=== PATIENT | female | born 1950 | race Caucasian/White ===

== ENCOUNTER 2018-10-07 10:35 | Emergency (ER) | payer MEDICARE, OTHER, SELFPAY ==
[2018-10-07 10:46] VITALS: BP 142/75; PULSE 66; RESP 20; TEMP 35.9; O2SAT 98; BMI 22.6
--- NOTE | 2018-10-07 10:55 | ED.HA ---
HPI - Headache General Chief Complaint: Headache Stated Complaint: HEADACHE, EVERYTHING HURTING,POSS SHINGLES Time Seen by Provider: 10/07/18 10:47 Source: patient Mode of arrival: ambulatory Limitations: no limitations History of Present Illness HPI Narrative: Patient is a 68-year-old female who presents with all left-sided rash and headache. She was diagnosed with shingles yesterday. She has been having a mild headache off and on for about a week. Went to PCP yesterday diagnosed with shingles started on valacyclovir. The rash actually started more so today and her pain is out of control. They did not give her anything for pain. She denies any neck pain or fever. She has never had shingles in the past. No vision changes ear pain or lesions on nose. Related Data Home Medications Medication Instructions Recorded Confirmed ibuprofen [Advil] 1 dose PO PRN PRN 10/07/18 10/07/18 multivitamin 1 tab PO DAILY 10/07/18 10/07/18 Previous Rx's Medication Instructions Recorded gabapentin 300 mg PO DAILY 1 Days #90 cap 10/07/18 hydrocodone-acetaminophen [[place]] 2 tab PO Q6-8H PRN #14 tab 10/07/18 prednisone 50 mg PO DAILY #5 tab 10/07/18 Allergies Allergy/AdvReac Type Severity Reaction Status Date / Time codeine [CODEINE] Allergy Unknown Unverified 03/04/18 11:57 Review of Systems Review of Systems All systems reviewed & are unremarkable except as noted in HPI and below Constitutional Denies chills, Denies fever(s), Denies lethargy and Denies weakness Eyes Denies change in vision, Denies eye discharge, Denies irritation and Denies loss of vision ENT Ears, Nose, Mouth, and Throat: Denies change in voice, Denies neck pain and Denies sore throat Cardiovascular Denies chest pain, Denies irregular heart rhythm, Denies lightheadedness, Denies palpitations, Denies dyspnea, Denies dyspnea on exertion and Denies orthopnea Respiratory Denies cough, Denies dyspnea, Denies dyspnea on exertion and Denies wheezing Gastrointestinal Gastrointestinal: Denies abdominal pain, Denies change in bowel habits, Denies diarrhea, Denies nausea and Denies vomiting Musculoskeletal Denies neck pain Integumentary/Breasts Reports rash Neurologic Denies loss of vision and Denies weakness Endocrine Denies palpitations Allergic/Immunologic Denies wheezing PFSH Medical History GERD (gastroesophageal reflux disease) (Acute) Social History Smoking Status: Never smoker Exam Initial Vital Signs Initial Vital Signs: Vital Signs Temperature 96.7 F L 10/07/18 10:46 Pulse Rate 66 10/07/18 10:46 Respiratory Rate 20 10/07/18 10:46 Blood Pressure 142/75 H 10/07/18 10:46 Pulse Oximetry 98 10/07/18 10:46 Const General: cooperative, healthy appearing and in distress (In pain) [facility] Head: normal to inspection and normocephalic Ears: hearing grossly normal bilaterally, external ears normal and TM's normal bilaterally Nose: external nose normal, septum normal and No nasal polyp Face and sinus: erythema on the left (Left-sided rash erythematous spots no vesicles does not cross midline no spot on nose ) Mouth: oral mucosae normal Eyes Other: Left eye was treated with proparacaine, stained with fluorescein. No dye uptake. No foreign body. Neck Neck: normal visual inspection, full ROM, no meningeal signs, trachea midline and supple Chest Chest: normal inspection of the chest and normal palpation of entire chest wall Resp Effort & Inspection: able to speak in complete sentences Auscultation: clear to auscultation bilaterally, no rales, no rhonchi and no wheezes Cardio Rate: regular rate Rhythm: regular rhythm Heart Sounds: S1 normal and S2 normal Skin Rashes: rashes noted (Erythematous lesions no vesicles left side) Course Vital Signs - 8 hr 10/07/18 10:46 Temperature 96.7 F L Pulse Rate 66 Respiratory Rate 20 Blood Pressure 142/75 H Pulse Oximetry 98 Discharge Plan Departure Patient Disposition: Home Clinical Impression: Shingles Discharge Date/Time: 10/07/18 11:11 Interventions: ED Discharge Assessment Last Done: 10/07/18 11:11 Instructions: Shingles Activity Restrictions/Additional Instructions: *You have been diagnosed with shingles *What to do: Expect to have pain and worsening rash this can last 3-6 weeks at this time it does not appear that I ear or nose is involved. However this may change. *Continue to take medications as directed Gabapentin-take as instructed, this is gradually increased and then gradually decreased do not stop it abruptly Prednisone 50 mg once a day for 5 days [place] all 1 tablet every 4 hr or 2 tablets every 6 hr as *Follow up with your primary care provider in 2-3 days *Return to ER if you should have increased eye pain, ear pain, fever, neck pain or any new, worsening or concerning symptoms CONTROLLED SUBSTANCE DISCHARGE (Narcotoic/benzodiazepine/Flexeril/Phenergan) 1. You have been prescribed narcotic medications, it does have acetaminophen/Tylenol/paracetamol in it so do not take extra Tylenol or Tylenol containing products 2. Please understand that we cannot provide further refills of narcotics, benzodiazepines or controlled substances through the ED and her pain management will need to be through your provider. 3. While on these medications you cannot drive or operate heavy machinery. 4. You cannot sign legal documents or perform any duties such as this. 5. As long as you're taking opiate pain medications he should also be taking a stool softener such as Colace, Dulcolax, MiraLAX or prune juice, to help avoid constipation. Prescriptions: New hydrocodone-acetaminophen [[place]] 5-325 mg tablet 2 tab PO Q6-8H PRN (Reason: pain) Qty: 14 RF: 0 prednisone 50 mg tablet 50 mg PO DAILY Qty: 5 RF: 0 gabapentin 300 mg capsule 300 mg PO DAILY 1 Days Qty: 90 RF: 0 No Action multivitamin Tablet 1 tab PO DAILY RF: 0 ibuprofen [Advil] 200 mg Tablet 1 dose PO PRN PRN (Reason: pain) RF: 0 Referrals: Phuong Ambrosio MD [Primary Care Provider] -
== END 2018-10-07 11:11 | disposition home or self-care (01) ==
PROVIDERS: Emergency Provider Emergency Medicine; PCP Family Medicine
DX: B02.9 Zoster without complications (principal)
CPT/HCPCS: 99282

== ENCOUNTER 2018-10-08 12:49 | Emergency (ER) | payer MEDICARE, OTHER, SELFPAY ==
[2018-10-08 12:54] VITALS: BP 113/70; PULSE 64; RESP 19; TEMP 36.8; O2SAT 99
[2018-10-08] MEDS: ONDANSETRON 4 MG ODT PO (13:09)
--- NOTE | 2018-10-08 16:59 | ED.NAVMDI ---
HPI - Nausea/Vomiting/Diarrhea <MAINOR Wilkins - Last Filed: 10/08/18 21:45> General Chief complaint: Nausea/Vomiting/Diarrhea Stated complaint: dehydrated, vomitting Time Seen by Provider: 10/08/18 16:58 Source: patient Mode of arrival: ambulatory Limitations: no limitations History of Present Illness HPI Narrative: 68-year-old female with history of GERD and is a nonsmoker here for complaint of nausea vomiting and discomfort due to shingles to her face. She has recently seen by primary care provider and was put on antivirals she was also prescribed pain medications. She reports after taking the medication she started having nausea vomiting. She is having a hard time taking the pain medication in the antiviral due to the vomiting. Last emesis was at noon today. She was sent here for IV fluids. No other concerns or complaints. Related Data Home Medications Medication Instructions Recorded Confirmed ibuprofen [Advil] 1 dose PO PRN PRN 10/07/18 10/08/18 multivitamin 1 tab PO DAILY 10/07/18 10/08/18 valacyclovir 1,000 mg PO TID 10/08/18 10/08/18 Previous Rx's Medication Instructions Recorded prednisone 50 mg PO DAILY #5 tab 10/07/18 Allergies Allergy/AdvReac Type Severity Reaction Status Date / Time codeine [CODEINE] Allergy Unknown Unverified 03/04/18 11:57 Review of Systems <MAINOR Wilkins - Last Filed: 10/08/18 21:45> Constitutional Denies chills, Denies fever(s), Denies lethargy and Denies weakness Eyes Denies change in vision, Denies eye discharge, Denies irritation and Denies loss of vision ENT Comments: Pain to the left face secondary to shingles Cardiovascular Denies chest pain, Denies irregular heart rhythm, Denies lightheadedness, Denies palpitations, Denies dyspnea, Denies dyspnea on exertion and Denies orthopnea Respiratory Denies cough, Denies dyspnea, Denies dyspnea on exertion and Denies wheezing Gastrointestinal Comments: Nausea vomiting Genitourinary Denies hematuria, Denies flank pain, Denies urinary incontinence and Denies urinary urgency Musculoskeletal Denies back pain, Denies muscle weakness, Denies numbness and Denies tingling Integumentary/Breasts Denies pruritus, Denies erythema, Denies rash and Denies wounds Neurologic Denies confusion, Denies loss of vision, Denies numbness, Denies tingling and Denies weakness Psychiatric Denies anxiety, Denies confusion, Denies depression, Denies homicidal ideation and Denies suicidal ideation Endocrine Denies palpitations Hematologic/Lymphatic Denies easy bruising Allergic/Immunologic Denies wheezing Exam <MAINOR Wilkins - Last Filed: 10/08/18 21:45> Initial Vital Signs Initial Vital Signs: Vital Signs Temperature 98.2 F 10/08/18 12:54 Pulse Rate 64 10/08/18 12:54 Respiratory Rate 19 10/08/18 12:54 Blood Pressure 113/70 10/08/18 12:54 Pulse Oximetry 99 10/08/18 12:54 Const General: cooperative and well developed Nutritional Appearance: well nourished Orientation: alert, awake, oriented x3 and not confused HENMT Face and sinus: other (Erythema and slight swelling to the left face) Mouth: oral mucosae normal and moist mucous membranes Eyes Conjunctivae: conjunctivae normal Sclera: sclerae normal Pupils: PERRL EOM: EOM intact bilaterally Resp Effort & Inspection: normal respiratory effort, able to speak in complete sentences, no respiratory distress and no use of accessory muscles Auscultation: clear to auscultation bilaterally, no rales, no rhonchi and no wheezes Cardio Rate: regular rate Rhythm: regular rhythm Heart Sounds: no click, no gallops, no murmurs and no rubs Pulses: normal peripheral pulses General: No CVA tenderness Skin General: no rashes or lesions noted, No jaundice and No petechiae Neuro General: alert, oriented x3, gait normal and no focal motor deficits Speech: speech normal <Kiel Lynch DO - Last Filed: 10/08/18 22:46> Initial Vital Signs Initial Vital Signs: Vital Signs Temperature 98.2 F 10/08/18 12:54 Pulse Rate 64 10/08/18 12:54 Respiratory Rate 19 10/08/18 12:54 Blood Pressure 113/70 10/08/18 12:54 Pulse Oximetry 99 10/08/18 12:54 Course <MAINOR Wilkins - Last Filed: 10/08/18 21:45> Orders Ordered: ED Orders 10/08/18 17:38 Complete Blood Count AUTO DIFF Stat Comprehensive Metabolic Panel Stat Discontinued Medications Hydromorphone HCl (Dilaudid) 1 mg IV NOW ONE Stop: 10/08/18 17:27 Last Admin: 10/08/18 17:53 Dose: 1 mg Sodium Chloride (Normal Saline 0.9%) 1,000 mls @ 1,000 mls/hr IV BOLUS ONE Stop: 10/08/18 18:25 Last Infusion: 10/08/18 18:52 Dose: 0 mls/hr Admin: 10/08/18 17:54 Dose: 1,000 mls/hr Ondansetron HCl (Zofran Odt) 4 mg PO NOW ONE Stop: 10/08/18 13:09 Last Admin: 10/08/18 13:09 Dose: 4 mg Ondansetron HCl (Zofran) 4 mg IV NOW ONE Stop: 10/08/18 17:27 Last Admin: 10/08/18 17:53 Dose: 4 mg Vital Signs - 8 hr 10/08/18 17:05 10/08/18 20:16 Temperature 98.9 F 101.7 F H Pulse Rate 75 63 Respiratory Rate 18 16 Blood Pressure 140/70 Blood Pressure [Right Arm] 147/79 H Pulse Oximetry 97 <Kiel Lynch, - Last Filed: 10/08/18 22:46> Orders Ordered: ED Orders 10/08/18 17:38 Complete Blood Count AUTO DIFF Stat Comprehensive Metabolic Panel Stat Discontinued Medications Hydromorphone HCl (Dilaudid) 1 mg IV NOW ONE Stop: 10/08/18 17:27 Last Admin: 10/08/18 17:53 Dose: 1 mg Sodium Chloride (Normal Saline 0.9%) 1,000 mls @ 1,000 mls/hr IV BOLUS ONE Stop: 10/08/18 18:25 Last Infusion: 10/08/18 18:52 Dose: 0 mls/hr Admin: 10/08/18 17:54 Dose: 1,000 mls/hr Ondansetron HCl (Zofran Odt) 4 mg PO NOW ONE Stop: 10/08/18 13:09 Last Admin: 10/08/18 13:09 Dose: 4 mg Ondansetron HCl (Zofran) 4 mg IV NOW ONE Stop: 10/08/18 17:27 Last Admin: 10/08/18 17:53 Dose: 4 mg Vital Signs - 8 hr 10/08/18 17:05 10/08/18 20:16 Temperature 98.9 F 101.7 F H Pulse Rate 75 63 Respiratory Rate 18 16 Blood Pressure 140/70 Blood Pressure [Right Arm] 147/79 H Pulse Oximetry 97 MDM - Nausea/Vomiting/Diarrhea <MAINOR Wilkins - Last Filed: 10/08/18 21:45> Lab Data Result diagrams: 10/08/18 17:38 10/08/18 17:38 Lab Results 10/08/18 10/08/18 Range/Units 17:38 17:38 WBC 8.8 (4.5-11.0) X10^3/uL RBC 4.34 (4.0-5.2) X10^6/uL Hgb 13.3 (12.0-16.0) g/dL Hct 39.0 (36-46) % MCV 89.7 (80-100) fL MCH 30.7 (26-34) PG MCHC 34.2 (30-36) % RDW 13.3 (11.6-14.8) % Plt Count 226 (150-400) X10^3/uL Neut % (Auto) 87.6 H (50-75) % Lymph % (Auto) 7.5 L (25-40) % [place] % (Auto) 4.5 (3-14) % Eos % (Auto) 0.3 L (2-4) % Baso % (Auto) 0.1 (0-2) % Neut # (Auto) 7709 H (8147-1303) /uL Sodium 141 (137-145) mmol/L Potassium 3.8 (3.4-5.1) mmol/L Chloride 102 (98-107) mmol/L Carbon Dioxide 27 (22-32) mmol/L BUN 20 H (7-17) mg/dL Creatinine 0.70 (0.52-1.04) mg/dL Estimated GFR > 60.0 (>60) mL/min BUN/Creatinine Ratio 28.6 H (6-22) Glucose 116 H (80-110) mg/dL Calcium 8.9 (8.4-10.2) mg/dL Total Bilirubin 0.4 (0.2-1.3) mg/dL AST 26 (14-36) IU/L ALT 28 (9-52) IU/L Alkaline Phosphatase 72 (38-126) U/L Total Protein 7.4 (6.3-8.2) g/dL Albumin 4.6 (3.5-5.0) g/dL Globulin 2.8 (1.7-4.1) g/dL Albumin/Globulin Ratio 1.6 (1.0-2.8) Urine Dip Bedside Urine Glucose Negative Bedside Urine Bilirubin - Negative Bedside Urine Ketone +/- 5 Urine Specific [place] 1.025 Bedside Urine Occult Blood - Negative Bedside Urine pH 6.0 Bedside Urine Protein - Negative Bedside Urine Urobilinogen - Negative Bedside Urine Nitrite - Negative Bedside Urine Leukocytes - Negative Esterase MDM Narrative Medical decision making narrative: The patient was given fluids Zofran and Dilaudid in the emergency room. She had no vomiting while she was in the emergency room. Laboratory results were unremarkable. She felt better after fluids. Discussed case with Dr. Trujillo was on for Dr. ambrosio whose office will follow up with patient tomorrow. We both agree that patient is stable to go home. For any worsening symptoms return to the emergency room. Uses Zofran ODT as needed for nausea. <Kiel Lynch, DO - Last Filed: 10/08/18 22:46> Lab Data Lab Results 10/08/18 10/08/18 Range/Units 17:38 17:38 WBC 8.8 (4.5-11.0) X10^3/uL RBC 4.34 (4.0-5.2) X10^6/uL Hgb 13.3 (12.0-16.0) g/dL Hct 39.0 (36-46) % MCV 89.7 (80-100) fL MCH 30.7 (26-34) PG MCHC 34.2 (30-36) % RDW 13.3 (11.6-14.8) % Plt Count 226 (150-400) X10^3/uL Neut % (Auto) 87.6 H (50-75) % Lymph % (Auto) 7.5 L (25-40) % [place] % (Auto) 4.5 (3-14) % Eos % (Auto) 0.3 L (2-4) % Baso % (Auto) 0.1 (0-2) % Neut # (Auto) 7709 H (7813-1685) /uL Sodium 141 (137-145) mmol/L Potassium 3.8 (3.4-5.1) mmol/L Chloride 102 (98-107) mmol/L Carbon Dioxide 27 (22-32) mmol/L BUN 20 H (7-17) mg/dL Creatinine 0.70 (0.52-1.04) mg/dL Estimated GFR > 60.0 (>60) mL/min BUN/Creatinine Ratio 28.6 H (6-22) Glucose 116 H (80-110) mg/dL Calcium 8.9 (8.4-10.2) mg/dL Total Bilirubin 0.4 (0.2-1.3) mg/dL AST 26 (14-36) IU/L ALT 28 (9-52) IU/L Alkaline Phosphatase 72 (38-126) U/L Total Protein 7.4 (6.3-8.2) g/dL Albumin 4.6 (3.5-5.0) g/dL Globulin 2.8 (1.7-4.1) g/dL Albumin/Globulin Ratio 1.6 (1.0-2.8) Urine Dip Bedside Urine Glucose Negative Bedside Urine Bilirubin - Negative Bedside Urine Ketone +/- 5 Urine Specific [place] 1.025 Bedside Urine Occult Blood - Negative Bedside Urine pH 6.0 Bedside Urine Protein - Negative Bedside Urine Urobilinogen - Negative Bedside Urine Nitrite - Negative Bedside Urine Leukocytes - Negative Esterase Discharge Plan Departure Patient Disposition: Home Clinical Impression: Shingles, Nausea & vomiting Discharge Date/Time: 10/08/18 20:18 Interventions: ED Discharge Assessment Last Done: 10/08/18 20:16 Instructions: DI for Shingles Activity Restrictions/Additional Instructions: Laboratory results today were unremarkable. Fluids were given in the emergency room. Use Zofran and pain medication antivirals as prescribed. Follow up with her primary care provider office tomorrow for re-evaluation for worsening symptoms return to the emergency room. Prescriptions: No Action prednisone 50 mg tablet 50 mg PO DAILY Qty: 5 RF: 0 multivitamin Tablet 1 tab PO DAILY RF: 0 ibuprofen [Advil] 200 mg Tablet 200 mg PO PRN PRN (Reason: pain) RF: 0 valacyclovir 1 gram Tablet 1,000 mg PO TID RF: 0 Referrals: Phuong Ambrosio MD [Primary Care Provider] - <Kiel Lynch DO - Last Filed: 10/08/18 22:46> Cosign ED Attending Jarredature Attestation: I was available for consultation during this patient's emergency department encounter
[2018-10-08 17:05] VITALS: BP 147/79; PULSE 75; RESP 18; TEMP 37.2
[2018-10-08] MEDS: ONDANSETRON 4 MG/2 ML INJ IV (17:53)
[2018-10-08] MEDS: HYDROMORPHONE 1 MG INJ IV (17:53)
[2018-10-08] MEDS: SODIUM CHLORIDE 0.9% 1,000 ML 1000 ML IV (17:54)
[2018-10-08 18:08] LABS: Red Blood Cell Count 4.34 X10^6/uL (4.0-5.2); White Blood Cell Count 8.8 X10^3/uL (4.5-11.0)
[2018-10-08 18:09] LABS: Add Manual Diff / Slide Review NO; Basophils Percent Auto 0.1 % (0-2); Eosinophils Percent Auto 0.3 % (2-4); Hemoglobin 13.3 g/dL (12.0-16.0); Lymphocytes Percent Auto 7.5 % (25-40); Mean Corpuscular HGB Conc 34.2 % (30-36); Mean Corpuscular Hemoglobin 30.7 PG (26-34); Mean Corpuscular Volume 89.7 fL (80-100); Monocytes Percent Auto 4.5 % (3-14); Neutrophils Percent Auto 87.6 % (50-75); Platelet Count 226 X10^3/uL (150-400); Red Cell Distribution Width 13.3 % (11.6-14.8)
[2018-10-08 18:10] LABS: Neutrophils Absolute Auto 7709 /uL (3000-5900)
[2018-10-08 18:20] LABS: Alanine Aminotransferase 28 IU/L (9-52); Albumin 4.6 g/dL (3.5-5.0); Albumin Globulin Ratio 1.6 (1.0-2.8); Alkaline Phosphatase 72 U/L (38-126); Aspartate Aminotransferase 26 IU/L (14-36); BUN Creatinine Ratio 28.6 (6-22); Bilirubin Total 0.4 mg/dL (0.2-1.3); Blood Urea Nitrogen 20 mg/dL (7-17); Calcium 8.9 mg/dL (8.4-10.2); Carbon Dioxide 27 mmol/L (22-32); Estimated Glomerular Filt Rate > 60.0 mL/min (>60); Globulin 2.8 g/dL (1.7-4.1); Glucose 116 mg/dL (80-110); HEMOLYSIS < 15 (0-50); Total Protein 7.4 g/dL (6.3-8.2)
[2018-10-08 18:26] LABS: Chloride 102 mmol/L (98-107); Potassium 3.8 mmol/L (3.4-5.1); Sodium 141 mmol/L (137-145)
[2018-10-08 20:16] VITALS: BP 140/70; PULSE 63; RESP 16; TEMP 38.7; O2SAT 97
== END 2018-10-08 20:18 | disposition home or self-care (01) ==
PROVIDERS: Emergency Provider Nurse Practitioner Family; PCP Family Medicine
DX: B02.9 Zoster without complications (principal)
CPT/HCPCS: 36591; 80053; 81003; 85025; J1170; J2405

== ENCOUNTER 2018-10-08 21:47 | Inpatient (IN) | payer MEDICARE, OTHER, SELFPAY ==
[2018-10-08 22:00] VITALS: BP 121/60; PULSE 69; RESP 18; TEMP 36.7; O2SAT 98
[2018-10-08 22:39] VITALS: BMI 26.5
[2018-10-08] MEDS: ONDANSETRON 4 MG/2 ML INJ IV (22:43)
[2018-10-08] MEDS: SODIUM CHLORIDE 0.9% 1,000 ML 150 ML IV (22:43)
[2018-10-09] VITALS (8 sets, daily range): BP systolic 107–147; BP diastolic 52–65; PULSE 61–69; RESP 16–20; TEMP 36.6–38; O2SAT 90–98
--- NOTE | 2018-10-09 00:58 | PC.NURSE ---
admit pt admitted to AC direct admit after being seen in the ER today for unrelenting nausea, vomiting, and shingles pain. erythema to left forehead and periorbital region. no open areas/sores noted. 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 NS at 150cc/hr. pt states hasn't been tolerating POs for a few days. alert and oriented with steady gait noted upon arrival. pt's spouse rooming in. Pt instructed of NPO status with oral swabs and chapstick provided. Pt instructed to notify RN of any increase in symptoms and prior to activity for assist with equipment.
[2018-10-09] MEDS: ONDANSETRON 4 MG/2 ML INJ IV ×2 (03:18→14:08)
--- NOTE | 2018-10-09 03:36 | PC.NURSE ---
Addendum entered by Yumiko Tapia R.N. 10/09/18 06:58: Add- Call into Dr Trujillo for uncontrolled nausea, Pt with allergy to codeine, nausea and emesis reported. However, Pt rates nausea same as prior to admission. Shows some frustration with continued symptom management issues. at bedside, Pt given Ativan and increased available Zofran dosing. Pt significantly more relaxed at next check, dosing bt Original Note: [id number] Pt c/o continued nausea at start of shift, zofran given. Pt with c/o IV pump too loud, It's almost like its talking to me Pt corrects herself, I know thats not real, but it sounds so strange Education about s/e from narcotics. 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 BA set, call light in reach. Instructed to allow staff assist for safety. Verbalizes understanding.
[2018-10-09] MEDS: SODIUM CHLORIDE 0.9% 1,000 ML 150 ML IV (04:14)
[2018-10-09] MEDS: LORazepam 2 MG/ML SYRINGE 0.5 MG IV (04:14)
[2018-10-09] MEDS: HYDROMORPHONE PCA 6 MG/30 ML PCA.VIAL IV ×3 (07:30→21:53)
--- NOTE | 2018-10-09 09:07 | P.HP_ITS ---
History of Present Illness Chief complaint: N/V, DEHYDRATION, PAIN ISSUES FROM SHINGLES Patient History Medical History GERD (gastroesophageal reflux disease) (Acute) Surgical History History of endometrial ablation (Acute) Family & Social History Family History: Reviewed 10/09/18 by Kiel Trujillo MD Social History: household members spouse Prior Living Arrangements House Safety & Behavioral: Feels Safe in Current Yes Environment Been Physically Hurt or No Threatened By a Person Suicidal Ideation Description None Tobacco & Substance use: Smoking Status Never smoker alcohol intake current alcohol intake frequency a few times a week Substance Use Type does not use Meds Home Medications Medication Instructions Recorded Confirmed Type ibuprofen [Advil] 200 mg PO PRN PRN 10/07/18 10/08/18 History multivitamin 1 tab PO DAILY 10/07/18 10/08/18 History prednisone 50 mg PO DAILY #5 tab 10/07/18 10/08/18 Rx famciclovir 500 mg PO Q8H 10/08/18 10/08/18 History valacyclovir 1,000 mg PO TID 10/08/18 10/08/18 History Allergies Allergy/AdvReac Type Severity Reaction Status Date / Time codeine [CODEINE] Allergy Unknown Nausea Verified 10/09/18 03:42 Review of Systems Review of Systems Patient presents with several day history of severe intractable nausea vomiting and dehydration. This developed about a day after she had an outbreak of clear shingles left side of her head with extensive erythema and redness and swelling extending around the eye. No involvement of the nose. No other abnormalities in terms of abdominal pain shortness of breath cough fever urinary symptoms. The patient was started on pain medications and valacyclovir and we became so nauseous that she was unable to sustain the fluids at all. Two trips to the office in 2 to the ER with IV hydration failed the get the patient had this and was admitted for intractable pain and inability to maintain hydration. Exam Vital Signs (past 8 hours): - 10/09/18 03:16 Temperature 100.4 F H Pulse Rate 66 Respiratory Rate 16 Blood Pressure 136/62 Pulse Oximetry 95 Oxygen Flow Rate 0 Narrative Exam Narrative: Patient sitting in obvious pain swollen left head. PERRLA EOMs are intact Speech clear Neck without any adenopathy rash and and is supple no thyromegaly Lungs are clear to auscultation percussion Cardiovascular exam shows regular rate and rhythm without murmur no edema Abdomen is intact and nontender no hepatosplenomegaly or mass bowel sounds are present Skin shows no abnormalities except in the left upper side of her head with significant inflammatory erythema and tenderness Neuro intact symmetrical speech clear sensory motor intact Assessment & Plan Plan: Assessment/Plan Narrative: Assessment 1. Intractable pain. Patient with severe shingles outbreak refractory to outpatient meds with multiple attempts meds to try to get control without success. Patient also has long history of nausea with the pain meds. Next. 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 Dehydration patient is significantly down with the ketones in urine and very concentrated urine and elevated BUN. Will admit and establish IV fluids for maintaining hydration this will probably also help with her nausea Assessment 3. Severe nausea will use meds as ordered Assessment for his history of reflux. Will use meds as necessary Assessment 5. No DVT prophylaxis and initiated Quality VTE Deep Vein Thrombosis/Pulmonary Embolism Present on Admission: No
[2018-10-09] MEDS: GABAPENTIN 300 MG CAPSULE PO ×2 (10:25→14:03)
[2018-10-09] MEDS: ENOXAPARIN 40 MG/0.4 ML SYRINGE SUBCUT (10:25)
[2018-10-09] MEDS: predniSONE 20 MG TABLET 50 MG PO (10:26)
[2018-10-09] MEDS: FAMCICLOVIR 500 MG 500 EACH PO ×2 (10:27→16:59)
--- NOTE | 2018-10-09 13:05 | CM.DANOTE ---
Patient is a 68 year old female who was admitted on 10/08/18 for Dehydration, Pain, Shingles. Pt has MCR and PRE DIM for insurance and her PCP is Dr. Ambrosio. EMR was reviewed. Per MD, pt still having intractable pain, dehydration, and nausea and not stable for d/c yet. SW met bedside with pt and spouse and explained role and they confirmed that they lives in [place] and pt is typically Independent at baseline and drives and has not needed to be hospitalized for at least 12 years since she had major back pain. Pt denies any hx of HH or SNF and they believe that they have completed DPOA pwk but state it has been many years and confirmed that they will plan to review their DPOA pwk at home and update if needed. Pt believes that her is her DPOA. Pt states she is still very nauseous and painful and preference is to d/c home when stable but not sure if she will have any SW needs. Plan: SW to follow closely for d/c planning needs to determine if pt will begin to stabilize enough for d/c home with spouse. Needs unclear at this time. 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 No History Provided By Patient Significant Other Medical Record Has Patient been admitted in last 30 No days? Prior Living Arrangements House Household Members spouse Type of transporation used prior to Drives own vehicle admit Independent with ADL's Yes Is patient alert and oriented? Yes Caregiver for Another No Comment Likely home pending pt's progress and medical needs Barriers to Discharge No Discharge Plan Home Transportation Arrangement Spouse is bedside and can provide transport at time of d /c. Referrals Initiated None needed Whiteboard Updated in Patient Room with Yes name and ext. # of Rivet Tapping Machine Operator Review Status In Process Please Provide Date Initial DC 10/09/18 Assessment Was Performed Next Review Type Continued Stay Review
[2018-10-09] MEDS: SODIUM CHLORIDE 0.9% 1,000 ML 100 ML IV (23:30)
[2018-10-10] VITALS: BP 131/67; PULSE 62; RESP 16; TEMP 36.8; O2SAT 96
[2018-10-10] MEDS: FAMCICLOVIR 500 MG 500 EACH PO ×2 (00:50→08:15)
[2018-10-10 01:00] VITALS: O2SAT 99
[2018-10-10] MEDS: LORazepam 2 MG/ML SYRINGE 0.5 MG IV (02:30)
--- NOTE | 2018-10-10 06:04 | PC.NURSE ---
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 The Dilaudid brought headache down to a 7/10 along with cool cloth to forehead. Medicated with PRN Ativan which help pt relax and rest. At this time, pt rates headache 5/10 and reports that she can tolerate the discomfort and still rest. THe erythema to face has remained unchanged overnight with improvement since admission, skin intact.
[2018-10-10 06:10] VITALS: BP 117/60; PULSE 60; RESP 16; TEMP 36.9; O2SAT 92
[2018-10-10] MEDS: HYDROMORPHONE PCA 6 MG/30 ML PCA.VIAL IV (06:12)
[2018-10-10 06:15] LABS: Add Manual Diff / Slide Review NO; Basophils Percent Auto 0.1 % (0-2); Eosinophils Percent Auto 0.6 % (2-4); Hematocrit 31.4 % (36-46); Lymphocytes Percent Auto 20.7 % (25-40); Mean Corpuscular HGB Conc 35.2 % (30-36); Mean Corpuscular Hemoglobin 31.3 PG (26-34); Mean Corpuscular Volume 88.8 fL (80-100); Monocytes Percent Auto 9.1 % (3-14); Neutrophils Absolute Auto 5400 /uL (3000-5900); Neutrophils Percent Auto 69.5 % (50-75); Platelet Count 193 X10^3/uL (150-400); Red Blood Cell Count 3.53 X10^6/uL (4.0-5.2); Red Cell Distribution Width 12.8 % (11.6-14.8); White Blood Cell Count 7.7 X10^3/uL (4.5-11.0)
[2018-10-10 06:23] LABS: Alanine Aminotransferase 25 IU/L (9-52); Albumin 3.3 g/dL (3.5-5.0); Albumin Globulin Ratio 1.4 (1.0-2.8); Alkaline Phosphatase 53 U/L (38-126); Aspartate Aminotransferase 16 IU/L (14-36); BUN Creatinine Ratio 22.9 (6-22); Bilirubin Total 0.3 mg/dL (0.2-1.3); Blood Urea Nitrogen 16 mg/dL (7-17); Calcium 8.2 mg/dL (8.4-10.2); Carbon Dioxide 28 mmol/L (22-32); Chloride 107 mmol/L (98-107); Estimated Glomerular Filt Rate > 60.0 mL/min (>60); Globulin 2.3 g/dL (1.7-4.1); Glucose 95 mg/dL (80-110); HEMOLYSIS < 15 (0-50); Potassium 3.5 mmol/L (3.4-5.1); Sodium 141 mmol/L (137-145); Total Protein 5.6 g/dL (6.3-8.2)
[2018-10-10] MEDS: SODIUM CHLORIDE 0.9% 1,000 ML 100 ML IV (07:03)
[2018-10-10 08:00] VITALS: BP 122/73; PULSE 55; RESP 14; TEMP 36.8; O2SAT 91
[2018-10-10] MEDS: GABAPENTIN 300 MG CAPSULE PO (08:13)
[2018-10-10] MEDS: predniSONE 20 MG TABLET 50 MG PO (08:14)
--- NOTE | 2018-10-10 09:37 | PM.PN.1 ---
Subjective Date Patient Seen: 10/10/18 Time Patient Seen: 09:42 Interval history: Still with fair pain. Points to the middle part of the forehead as the chief area. Did well with the EDGER TECHNICIAN that has been held and not sure why, but has had an oral dose of the hydromorphone believe which has not worked as well. I do not see that on the med list. Vision is a little off she notes some blurriness maybe even a little doubling. Nausea is improved although still not much appetite. Exam Vital Signs (past 8 hours): - 10/10/18 06:10 10/10/18 08:00 Temperature 98.5 F 98.2 F Pulse Rate 60 55 L Respiratory Rate 16 14 Blood Pressure 117/60 122/73 Pulse Oximetry 92 91 Oxygen Delivery Method Room Air Oxygen Flow Rate 0 Narrative Exam Narrative: Sitting up in bed, mild distress. Fairly clear line of rash mid forehead over the scalp and to the left some scattered blisters, extends into the left cheek a bit and to the base of the nose on the left. Otherwise unremarkable chest clear heart regular abdomen extremities benign neurologically nonfocal. Objective Labs Result Diagrams: 10/10/18 05:50 10/10/18 05:50 Labs: Laboratory Results - last 24 hr 10/10/18 10/10/18 05:50 05:50 WBC 7.7 RBC 3.53 L Hgb 11.0 L Hct 31.4 L MCV 88.8 MCH 31.3 MCHC 35.2 RDW 12.8 Plt Count 193 Neut % (Auto) 69.5 Lymph % (Auto) 20.7 L Hodgeman % (Auto) 9.1 Eos % (Auto) 0.6 L Baso % (Auto) 0.1 Neut # (Auto) 5400 Sodium 141 Potassium 3.5 Chloride 107 Carbon Dioxide 28 BUN 16 Creatinine 0.70 Estimated GFR > 60.0 BUN/Creatinine Ratio 22.9 H Glucose 95 Calcium 8.2 L Total Bilirubin 0.3 AST 16 ALT 25 Alkaline Phosphatase 53 Total Protein 5.6 L Albumin 3.3 L Globulin 2.3 Albumin/Globulin Ratio 1.4 Assessment & Plan (1) Shingles: Problem details: Severe episode with substantial pain requiring hospitalization for better pain control. Has done well with the Dilaudid EDGER TECHNICIAN but will trial somewhat larger dose of the oral to see if we can discharge. Concerned about her vision it is the weekend I would very much like to have Ophthalmology evaluate for possible ophthalmic complications. Qualifiers: Herpes zoster complications: unspecified herpes zoster complication Herpes zoster neurologic complication detail: Herpes zoster ocular complication detail: Qualified Code(s): B02.8 - Zoster with other complications Current visit: No Status: Acute (2) Nausea & vomiting: Problem details: Related to above, improved. Qualifiers: Vomiting Intractability: non-intractable Vomiting type: unspecified Qualified Code(s): R11.2 - Nausea with vomiting, unspecified Current visit: No Status: Acute (3) Volume depletion: Problem details: Largely resolved. Current visit: Yes Status: Acute (4) GERD (gastroesophageal reflux disease): Problem details: By history, now only occasional treated with Tums. Current visit: No Status: Chronic Plan: Assessment/Plan Narrative: Try oral 4 mg Dilaudid, if that is adequate than likely home. In the meantime will contact Ophthalmology to see if there is any way they can evaluate the patient today. Quality VTE Deep Vein Thrombosis/Pulmonary Embolism Present on Admission: No
[2018-10-10] MEDS: HYDROMORPHONE 4 MG TABLET PO (11:38)
[2018-10-10 12:00] VITALS: BP 129/61; PULSE 66; RESP 16; TEMP 36.8; O2SAT 93
--- NOTE | 2018-10-10 12:48 | CM.DPC ---
Addendum entered by JUDITH Royal 10/10/18 14:18: MD consulted with Ophthalmology at [place] and was advised on treatment. Patient is medically stable and ready for discharged. Met with patient: agreeable to discharge and spouse will provide transportation. No needs at this time. Plan: Discharge today with supportive family. Original Note: DCP/cont EMR was reviewed. Per MD, pt still having intractable pain, dehydration, and nausea and not stable for d/c yet. Patient is currently pending an Ophthalmology consult due to patient?s vision possibly being affected. Plan: SW to follow closely for d/c planning needs to determine if pt will begin to stabilize enough for d/c home with spouse. Needs unclear at this time.
--- NOTE | 2018-10-10 13:47 | P.DS_ITS ---
History of Present Illness Date Patient Seen: 10/10/18 Time Patient Seen: 13:39 Chief complaint: N/V, DEHYDRATION, PAIN ISSUES FROM SHINGLES Narrative: See H&P Discharge Providers Date of admission: 10/08/18 21:47 Primary care physician: Phuong Ambrosio MD Discharge provider: Nils Ahmadi MD Discharge Date: 10/10/18 Summary Discharge Diagnosis: Shingles of left upper face, severe associated pain, nausea vomiting, volume depletion. Vision changes thought not to be viral related. Hospital Course: Patient admitted after failed outpatient treatment, worsening symptoms despite oral options. Placed on Dilaudid BUSINESS ADMINISTRATION PROFESSOR plus oral anti viral and oral and IV antiemetics with IV fluids. Slow improvement still fair amount of pain. Was complaining of some visual changes I contacted Ophthalmology only available on a Friday was at [place], talk them through current setting they felt the risk of impact on site was minimal but did advise treatment to avoid superinfection with an antibiotic ointment, artificial tears, and elective ophthalmology visit after discharge. nausea has improved feeling pretty well and ready for home. Status at Discharge Cognitive/behavioral status at discharge: Normal Functional status at discharge: independent ambulation Overall status at discharge: patient is not back to baseline Time Spent with Patient Greater than 30 minutes Exam Vital Signs (past 8 hours): - 10/10/18 06:10 10/10/18 08:00 10/10/18 12:00 Temperature 98.5 F 98.2 F 98.3 F Pulse Rate 60 55 L 66 Respiratory Rate 16 14 16 Blood Pressure 117/60 122/73 129/61 Pulse Oximetry 92 91 93 Oxygen Delivery Method Room Air Oxygen Flow Rate 0 Narrative Exam Narrative: Persistent rash covering left V1 distribution of trigeminal nerve mostly to level of eye with a couple of spots in the left cheek in Lyubov's but nothing noted at the tip of the nose. Essentially unchanged from admission. Otherwise unremarkable chest clear heart regular abdomen extremities benign neurologically nonfocal. Objective Labs Result Diagrams: 10/10/18 05:50 10/10/18 05:50 Labs: Laboratory Results - last 24 hr 10/10/18 10/10/18 05:50 05:50 WBC 7.7 RBC 3.53 L Hgb 11.0 L Hct 31.4 L MCV 88.8 MCH 31.3 MCHC 35.2 RDW 12.8 Plt Count 193 Neut % (Auto) 69.5 Lymph % (Auto) 20.7 L Stanley % (Auto) 9.1 Eos % (Auto) 0.6 L Baso % (Auto) 0.1 Neut # (Auto) 5400 Sodium 141 Potassium 3.5 Chloride 107 Carbon Dioxide 28 BUN 16 Creatinine 0.70 Estimated GFR > 60.0 BUN/Creatinine Ratio 22.9 H Glucose 95 Calcium 8.2 L Total Bilirubin 0.3 AST 16 ALT 25 Alkaline Phosphatase 53 Total Protein 5.6 L Albumin 3.3 L Globulin 2.3 Albumin/Globulin Ratio 1.4 Discharge Plan Discharge Plan Patient Disposition: Home Discharge Med Rec/Prescriptions Prescriptions: New hydromorphone 4 mg Tablet 4 mg PO Q4HR PRN (Reason: Pain, Severe (7-10)) Qty: 30 RF: 0 erythromycin 5 mg/gram (0.5 %) ointment 0.5 inch EYE-LEFT Q8H 5 Days Qty: 3.5 RF: 0 Continue multivitamin Tablet 1 tab PO DAILY RF: 0 ibuprofen [Advil] 200 mg Tablet 200 mg PO PRN PRN (Reason: pain) RF: 0 famciclovir 500 mg Tablet 500 mg PO Q8H Qty: 0 RF: 0 Discontinued prednisone 50 mg tablet 50 mg PO DAILY Qty: 5 RF: 0 valacyclovir 1 gram Tablet 1,000 mg PO TID RF: 0 Follow up/Referrals: Phuong Ambrosio MD [Primary Care Provider] - 1 Week Provider Discharge Instructions Diet: Diet as Tolerated Skin/Wound/Dressing Care Report to your healthcare provider any signs of infection, such as:: chills, fever, night sweats, increased pain and unusual drainage Visit Report/Discharge Packet Instructions: DI for Shingles Discharge Data Primary Care Provider: Phuong Ambrosio Attending Provider: Kiel Trujillo Admit Date/Time: 10/08/18 21:47 Quality VTE Deep Vein Thrombosis/Pulmonary Embolism Present on Admission: No
--- NOTE | 2018-10-10 14:15 | PC.NURSE ---
0730-Received report, bedside safety checks done. assumed care of patient. 0800-assessment complete, patient A&Ox4, KIM, c/o headache and asking for PO medications 1100-LEGISLATIVE AIDE stopped; patient has not used since noc, fluids stopped and saline locked for shower; patient and spouse asking about discharge. 1400-Patient leaving w/ who is driving patient home via private vehicle; pt leaving floor via wheelchair, A&O; PIV removed, all belongings sent with patient; Patient provided home medications have been returned to patient. no new Rxs at this time. discharge summary reviewed and provided to patient and spouse.
== END 2018-10-10 14:15 | disposition home or self-care (01) | DRG 596 ==
PROVIDERS: Admitting Provider Family Medicine; Family Provider Family Medicine; PCP Family Medicine; Visit Provider Family Medicine
DX: B02.9 Zoster without complications (principal); E86.0 Dehydration; R11.0 Nausea; K21.9 Gastro-esophageal reflux disease without esophagitis; H53.9 Unspecified visual disturbance
CPT/HCPCS: 36415; 36591; 36592; 80053; 81003; 85025; 94760; 99282; 99283; J1170; J1650; J2060; J2405

== ENCOUNTER → 2019-08-28 08:22 | Outpatient (CLI) | payer MEDICARE, OTHER, SELFPAY ==
--- NOTE | 2019-08-28 | DI.MG.S_ITS ---
BILATERAL DIGITAL SCREENING MAMMOGRAM 3D/2D WITH CAD: 08/28/2019 CLINICAL: Routine screening. Comparison is made to exams dated: 12/03/2016 mammogram, 11/10/2015 mammogram, and 11/09/2014 mammogram - [facility]. The tissue of both breasts is heterogeneously dense. This may lower the sensitivity of mammography. Current study was also evaluated with a Computer Aided Detection (CAD) system. There is a round mass in the right breast at 4 o'clock anterior depth. No other significant masses, calcifications, or other findings are seen in either breast. IMPRESSION: INCOMPLETE: NEEDS ADDITIONAL IMAGING EVALUATION The round mass in the right breast likely represents a cyst and is indeterminate. Additional views with possible ultrasound are recommended. This exam was interpreted at Station ID: [id number]. NOTE: For mammograms, a report in lay terms will be sent to the patient. Approximately 15% of breast malignancies will not be visualized mammographically. In the management of a palpable breast mass, a negative mammogram must not discourage biopsy of a clinically suspicious lesion. Electronically Signed By: Jayde Harris M.D. lk/:08/30/2019 08:32:30 letter sent: Additional Imaging Needed ACR BI-RADS Category 0: Incomplete [id number]
== END ==
PROVIDERS: PCP Family Medicine; Visit Provider Family Medicine
DX: Z12.31 Encounter for screening mammogram for malignant neoplasm of breast (principal)
CPT/HCPCS: 77063; 77067

== ENCOUNTER → 2019-09-10 08:03 | Outpatient (CLI) | payer MEDICARE, OTHER, SELFPAY ==
--- NOTE | 2019-09-10 | DI.US.S_ITS ---
LIMITED ULTRASOUND OF RIGHT BREAST: 09/10/2019 CLINICAL: Additional evaluation requested from prior study. Comparison is made to exams dated: 09/10/2019 mammogram, 08/28/2019 mammogram, 12/03/2016 mammogram, 11/10/2015 mammogram, 11/09/2014 mammogram, and 02/18/2013 mammogram - [facility]. Color flow and real-time ultrasound of the right breast 3 o'clock region were performed. Peres scale images of the real-time examination were reviewed. There is a 0.8 cm x 0.7 cm x 0.9 cm round complicated cyst in the right breast at 3 o'clock anterior depth 3 cm from the nipple. This round complicated cyst is hypoechoic with a well-defined boundary, internal echoes, and posterior acoustic enhancement. This correlates with mammography findings. Color flow imaging demonstrates that there is no increase in vascularity. IMPRESSION: PROBABLY BENIGN The 0.9 cm round cyst in the right breast is consistent with a complicated cyst and is probably benign. A follow-up mammogram and an ultrasound in 6 months is recommended to demonstrate stability. Results were conveyed to the patient by the backend tester. If the patients appreciates any significant change (ie. skin thickening or retraction, a palpable mass, nipple discharge) to the region before 6 months, she is recommended to return sooner for re-evaluation. This exam was interpreted at Station ID: [id number]. Electronically Signed By: Truman Lopes M.D. slc/:09/10/2019 10:00:44 letter sent: Followup Recommended Ultrasound BI-RADS: 3 Probably benign
--- NOTE | 2019-09-10 | DI.MG.S_ITS ---
UNILATERAL RIGHT DIGITAL DIAGNOSTIC MAMMOGRAM 3D/2D WITH ADDITIONAL VIEWS: 09/10/2019 CLINICAL: Additional evaluation requested from prior study. Comparison is made to exams dated: 08/28/2019 mammogram, 12/03/2016 mammogram, 11/10/2015 mammogram, 11/09/2014 mammogram, and 02/18/2013 mammogram - [facility]. The tissue of right breast is heterogeneously dense. This may lower the sensitivity of mammography. There is a round mass with a circumscribed margin in the right breast at 3 o'clock anterior depth. This is seen in additional views. No other significant masses or calcifications are seen in the breast. IMPRESSION: INCOMPLETE: NEEDS ADDITIONAL IMAGING EVALUATION The round mass in the right breast likely represents a cyst and is indeterminate. A targeted ultrasound is recommended. Exam findings were conveyed to the patient by the mixer operator hot metal. This exam was interpreted at Station ID: [id number]. NOTE: For mammograms, a report in lay terms will be sent to the patient. Approximately 15% of breast malignancies will not be visualized mammographically. In the management of a palpable breast mass, a negative mammogram must not discourage biopsy of a clinically suspicious lesion. Electronically Signed By: Truman Lopes M.D. slc/:09/10/2019 08:44:08 ACR BI-RADS Category 0: Incomplete [id number]
== END ==
PROVIDERS: PCP Family Medicine; Visit Provider Family Medicine
DX: R92.8 Other abnormal and inconclusive findings on diagnostic imaging of breast (principal); N60.01 Solitary cyst of right breast
CPT/HCPCS: 76642; 77065; G0279

== ENCOUNTER → 2019-11-08 15:18 | Outpatient (CLI) | payer MEDICARE, OTHER, SELFPAY ==
--- NOTE | 2019-11-08 | DI.RAD.S_ITS ---
PROCEDURE: XR CHEST 2V INDICATIONS: cough TECHNIQUE: 2 views of the chest were acquired. COMPARISON: [facility], CHEST 1 VIEW, 10/25/2016, 6:00. [facility], CHEST 2 VIEW, 04/27/2014, 10:13. FINDINGS: Surgical changes and devices: None. Lungs and pleura: Lungs are clear. No pleural effusions or pneumothorax. Mediastinum: Mediastinal contours are normal. Heart size is normal. Bones and chest wall: No suspicious bony abnormalities. Soft tissues appear unremarkable. IMPRESSION: Normal for age, source of cough is not found. Dictated by: Franck West M.D. on 11/08/2019 at 15:50 Approved by: Franck West M.D. on 11/08/2019 at 15:50
== END ==
PROVIDERS: PCP Family Medicine; Visit Provider Family Medicine
DX: R05 Cough (principal)
CPT/HCPCS: 71046

== ENCOUNTER → 2020-01-03 08:02 | Outpatient (CLI) | payer MEDICARE, OTHER, SELFPAY ==
--- NOTE | 2020-01-03 | DI.MRI.S_ITS ---
PROCEDURE: MR HEAD/BRAIN WO CON INDICATIONS: Tension-type headache,Other symptoms and signs inv TECHNIQUE: Noncontrast axial T1 spin echo, axial T2 fast spin echo, sagittal and axial FLAIR, coronal T2 fast spin echo, axial gradient echo, axial diffusion and ADC through the brain. COMPARISON: None. FINDINGS: Image quality: Excellent. CSF Spaces: Basal cisterns are patent. No extra-axial fluid collections. Ventricles are normal in size and shape. Brain: No intracranial masses or hemorrhage. Mild diffuse age-appropriate cerebral volume loss is present. Minimal degree of scattered punctate high FLAIR signal foci within the periventricular and subcortical white matter, predominantly of the frontal lobes. Peres/white matter interface is normal. Brainstem appears normal. Diffusion-weighted images demonstrate no acute ischemic insult. No chronic ischemic insults. Normal intravascular flow voids are present. Skull and face: Calvarium has normal marrow signal. Orbits appear normal. Sinuses: Sinuses and mastoids are clear. IMPRESSION: 1. No explanation for headache. 2. No acute process. No recent infarct. 3. Mild diffuse cerebral volume loss. Minimal small vessel ischemic disease. Dictated by: Josh Alvarado M.D. on 01/03/2020 at 8:59 Approved by: Josh Alvarado M.D. on 01/03/2020 at 9:01
--- NOTE | 2020-01-03 | DI.US.S_ITS ---
PROCEDURE: US CAROTID DOPPLER BI INDICATIONS: TENSION-TYPE HEADACHES TECHNIQUE: Color and pulse Doppler interrogation was performed of both carotid systems, with image documentation and velocity measurements. COMPARISON: [facility], , CAROTID ARTERY DOPPLER BIL, 06/05/2011, 16:40. FINDINGS: Stenosis calculations are based on SRU (Society of Radiologists in Ultrasound) criteria. The flow velocities and the arterial waveforms are normal within both carotid arterial systems. Atherosclerotic plaque is seen on both sides. The estimated degree of internal carotid artery stenosis is less than 50%. Antegrade flow is confirmed within both vertebral arteries. IMPRESSION: No hemodynamically significant stenosis is seen. No significant change from the prior. Atherosclerotic plaque is noted bilaterally. Dictated by: Ren Simmons M.D. on 01/03/2020 at 15:05 Approved by: Ren Simmons M.D. on 01/03/2020 at 15:06
== END ==
PROVIDERS: PCP Family Medicine; Referring Provider Family Medicine; Visit Provider Family Medicine
DX: G44.209 Tension-type headache, unspecified, not intractable (principal); R41.89 Other symptoms and signs involving cognitive functions and awareness; I65.23 Occlusion and stenosis of bilateral carotid arteries
CPT/HCPCS: 70551; 93880

== ENCOUNTER → 2020-07-25 10:36 | Outpatient (CLI) | payer MEDICARE, OTHER, SELFPAY ==
--- NOTE | 2020-07-25 | DI.RAD.S_ITS ---
PROCEDURE: XR RIBS LT MIN 3V W CXR1V INDICATIONS: LEFT RIB PAIN S/P FALL YESTERDAY TECHNIQUE: 2 views of the left ribs were acquired, along with a single view chest. COMPARISON: [facility], , XR CHEST 2V, 11/08/2019, 15:16. FINDINGS: Surgical changes and devices: None. Bones and chest wall: No fractures or dislocations. No suspicious bony lesions. Overlying soft tissues appear unremarkable. Lungs and pleura: No pleural effusions or pneumothorax. Lungs appear clear. Mediastinum: Mediastinal contours appear normal. Heart size is normal. IMPRESSION: No displaced left rib fractures. Dictated by: Shawn Arredondo [facility] Interpreted: Yuridia Daugherty MD on 07/25/2020 at 11:25 Approved by: Yuridia Daugherty M.D. on 07/25/2020 at 15:00
== END ==
PROVIDERS: PCP Family Medicine; Referring Provider Family Medicine; Visit Provider Family Medicine
DX: R07.81 Pleurodynia (principal)
CPT/HCPCS: 71101

== ENCOUNTER 2023-06-01 08:10 | Emergency (ER) | payer MEDICARE, OTHER, SELFPAY ==
[2023-06-01] VITALS (14 sets, daily range): BP systolic 123–145; BP diastolic 60–73; PULSE 60–85; RESP 17–56; TEMP 36.8; O2SAT 94–100; BMI 25.7
--- NOTE | 2023-06-01 08:20 | PC.NURSE ---
Pt alert, oriented only to self. Answers some questions. Occasionally moans. When asked if she's in pain, sometimes answers no and sometimes yes. Answers I don't know when asked for pain location. States I just feel so off. Appears uncomfortable, shifting position frequently in bed and touching lines and wires. No focal deficit noted.
--- NOTE | 2023-06-01 08:21 | DI.CT.S_ITS ---
PROCEDURE: CT ABDOMEN PELVIS W CON INDICATIONS: altered mental status, improved, abd pain TECHNIQUE: After the administration of intravenous contrast, axial sections acquired from the lung bases to the pubic symphysis. Coronal and sagittal reformats were performed. For radiation dose reduction, the following was used: automated exposure control, adjustment of mA and/or kV according to patient size. COMPARISON: None. FINDINGS: Image quality: Excellent. Lung bases: Bibasilar atelectasis. No pneumothorax or pleural effusion. Solid organs: Liver: The liver has no mass or intrahepatic biliary ductal dilatation. The portal vein and hepatic veins are patent. Biliary: Possible gallstone in the neck. Gallbladder wall thickening. Pancreas: The pancreas has no mass or ductal dilatation. There is no surrounding inflammation. Spleen: Normal size. There are no masses. Adrenals: No hypertrophy or nodules. Kidneys: No obstructive calculus or hydronephrosis. No solid mass. No cystic mass. Peritoneum and bowel: Small hiatal hernia. The small bowel has a normal caliber and appearance. The terminal ileum is normal. The large bowel has a normal caliber and appearance. The appendix is normal. No free fluid or air. Nodes and vessels: No retroperitoneal or mesenteric adenopathy by size criteria. The aorta has atherosclerosis with no aneurysmal dilatation. Miscellaneous: No abdominal wall mass or hernia. PELVIS: Genitourinary: The bladder has no wall thickening or mass. No bladder calcifications. Bones: Multilevel degenerative changes. Anterior height loss of T12. Central height loss of T9 and T11. Degenerative disc disease with bilateral pars defects at L5-S1 with grade 1 anterolisthesis. IMPRESSION: 1. Gallbladder wall thickening with possible stone. Recommend gallbladder ultrasound. 2. No other acute abdominal or pelvic abnormality. Dictated by: Jonathan Cho M.D. on 06/01/2023 at 8:48 Approved by: Jonathan Cho M.D. on 06/01/2023 at 8:53
--- NOTE | 2023-06-01 08:22 | DI.RAD.S_ITS ---
PROCEDURE: XR CHEST 1V INDICATIONS: altered mental status, improved, abd pain TECHNIQUE: One view of the chest was acquired. COMPARISON: [facility], CT, CT ABDOMEN PELVIS W CON, 06/01/2023, 8:32. [facility], CR, XR CHEST 2V, 11/08/2019, 15:16. FINDINGS: Surgical changes and devices: None. Lungs and pleura: Mild diffuse interstitial prominence with patchy bibasilar airspace opacities. No substantial pleural effusion. No pneumothorax. No focal consolidation. Mediastinum: Mediastinal contours appear normal. Heart size is borderline enlarged. Bones and chest wall: No suspicious bony lesions. Overlying soft tissues appear unremarkable. IMPRESSION: Borderline cardiomegaly with diffuse interstitial prominence and patchy bibasilar opacities. Findings are nonspecific and may represent atelectasis although an infectious or inflammatory process not excluded if clinically appropriate. Other considerations include mild pulmonary edema/CHF. Dictated by: Omer Malagon M.D. on 06/01/2023 at 9:20 Approved by: Omer Malagon M.D. on 06/01/2023 at 9:23
--- NOTE | 2023-06-01 08:22 | DI.CT.S_ITS ---
PROCEDURE: CT HEAD/BRAIN WO CON INDICATIONS: altered mental status, improved, abd pain TECHNIQUE: Noncontrast 4.5 mm thick angled axial sections acquired from the foramen magnum to the vertex, with coronal and sagittal reformats. For radiation dose reduction, the following was used: automated exposure control, adjustment of mA and/or kV according to patient size. COMPARISON: None. FINDINGS: Image quality: Excellent. CSF spaces: Basal cisterns are patent. No extra-axial fluid collections. The ventricles are symmetric in size and shape. Brain: No intracranial bleeds or masses. There is cerebral volume loss for age, with resultant ventricular and sulcal prominence. There are periventricular and deep white matter chronic small vessel ischemic changes. There is intracranial internal carotid artery atherosclerosis. Skull and face: Calvarium and visualized facial bones appear intact, without suspicious lesions. Sinuses: Visualized sinuses and mastoids are clear. IMPRESSION: 1. No acute intracranial abnormality. 2. Cerebral volume loss and small vessel ischemic changes. Dictated by: Jonathan Cho M.D. on 06/01/2023 at 8:45 Approved by: Jonathan Cho M.D. on 06/01/2023 at 8:47
--- NOTE | 2023-06-01 08:24 | ED_ITS ---
HPI - Altered Mental Status General Chief Complaint: Altered Mental Status Stated Complaint: altered Time Seen by Provider: 06/01/23 08:13 Source: patient, family, EMS, RN notes reviewed and old records reviewed Mode of arrival: EMS Limitations: no limitations History of Present Illness HPI narrative: This is a 73-year-old female with history of dementia no daily medications. Patient presents with EMS followed by her . Per EMS patient's GCS was 10 eyes were open patient seemed to recognize that they are present when they would say her name but did not follow commands or able to give any speech. Patient stable tell me she has some abdominal discomfort. Patient denies headache, no vision changes, no chest pain or shortness breath, she denies any nausea or vomiting, diarrhea constipation, no dysuria urgency or frequency. No back or flank pain. She does indicate she is some abdominal pain or discomfort but has trouble telling me where. She denies any weakness in her extremities, no numbness or tingling. She follows some commands but has to be encouraged or have them repeated. She can tell me her name, she can tell me she lives with her . She says she knows where she is at but when asked specifically does not answer. She was able to tell me she does not take any medications that she does have memory issues, and that she does drink alcohol most days. Past medical history from , patient has no daily medications but does have known dementia. Had prior uterine ablation. No known drug allergies. No tobacco, has a glass of wine nightly, no illicit. notes patient had a similar episode while they were traveling in [place] in the last year. She would gone to the bathroom he thought she was gone for a long time found her altered in the bathroom with decerebrate posture. She had a period where she seemed altered and then improved her mentation. He states that they ruled out seizure but describes ruling this out by blood work. She was found to be COVID positive at that time symptoms were attributed to this. She would not had any additional episodes since then. He states this morning she was awake but sleepy. He would gone to the bathroom the other room heard some sounds and came back and found patient altered. He states she seemed to have agonal breathing, he thought she did have a pulse. He did not appreciate any posturing. 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 EMS was dispatched and patient started to have verbal interaction during transport to the ER. Glucose was 120s in the field. states that yesterday she complained of some abdominal pain after eating out [employer] here locally. Patient follows with Dr. Ambrosio is her primary care. Related Data Home Medications Medication Instructions Recorded Confirmed ibuprofen 200 mg tablet (Advil) 200 mg PO PRN PRN pain 10/07/18 10/08/18 multivitamin 1 tab PO DAILY 10/07/18 10/08/18 famciclovir 500 mg tablet 500 mg PO Q8H 10/08/18 10/08/18 valacyclovir 1 gram tablet 1,000 mg PO TID 10/08/18 10/08/18 Previous Rx's Medication Instructions Recorded prednisone 50 mg tablet 50 mg PO DAILY #5 tabs 10/07/18 hydromorphone 4 mg tablet 4 mg PO Q4HR PRN Pain, Severe 10/10/18 (7-10) #30 tabs levetiracetam 500 mg tablet 500 mg PO BID 60 days #120 tabs 06/01/23 (Keppra) Allergies Allergy/AdvReac Type Severity Reaction Status Date / Time codeine [CODEINE] Allergy Unknown Nausea Verified 10/09/18 03:42 Review of Systems Review of Systems ROS Unobtainable: All systems reviewed & are unremarkable except as noted in HPI and below Patient History Medical History GERD (gastroesophageal reflux disease) Surgical History History of endometrial ablation Social History household members: spouse Smoking Status: Never smoker alcohol intake: current Smoking Status: Never smoker alcohol intake frequency: a few times a week Substance Use Type: does not use Exam Narrative Exam Narrative: GEN: well nourished, well appearing female, alert and oriented to self and past medical history, patient appears to be in [id number]-[id number]-ioowctdy distress. Patient follows some commands but does require, HEENT: Atraumatic, pupils are equal round reactive to light, extraocular movements are intact, nares are clear, there is no conjunctival pallor. Throat is clear without any exudates, erythema, tonsillar enlargement or uvular deviation, no facial droop. HEART: Regular rate and rhythm without murmur, clicks, rubs. Pulses are equal in upper and lower extremities LUNGS:Lungs clear to auscultation, no wheezes, rales, crackles, chest moves symmetrically, no tachypnea or accessory muscle use. ABD:bowel sounds normal, soft, non-tender, no guarding, rebound, rigidity, no masses noted, no hepatosplenomegaly, no pulsatile mass or bruit. Nondistended. :No CVA tenderness MSCL: Non-tender, no muscle atrophy, muscles strength 5/5 upper and lower extremities, full range of motion NEURO:CN 2-12 intact, sensation normal, reflexes 2/4 upper and lower extremities. Initial Vital Signs Initial Vital Signs: Vital Signs Temperature 98.3 F 06/01/23 08:15 Pulse Rate 65 06/01/23 08:15 Respiratory Rate 18 06/01/23 08:15 Blood Pressure 123/67 06/01/23 08:15 Pulse Oximetry 95 06/01/23 08:15 Oxygen Delivery Method Room Air 06/01/23 08:15 Course Orders Ordered: ED Orders 06/01/23 10:16 US abdomen limited Stat 06/01/23 10:36 COVID19 -Nasal RAPID Stat 06/01/23 10:58 Urinalysis and Microscopic Stat Urine Culture Stat Urine Drug Screen, Rapid Stat Discontinued Medications Sodium Chloride (Normal Saline 0.9%) 1,000 mls @ 150 mls/hr IV CONT KAITLIN Last Infusion: 06/01/23 11:10 Dose: 0 mls/hr Documented By: Admin: 06/01/23 09:12 Dose: 150 mls/hr Documented By: Levetiracetam 1,000 mg/ Sodium (Chloride) 110 mls @ 440 mls/hr IV NOW ONE Stop: 06/01/23 12:07 Last Infusion: 06/01/23 13:00 Dose: 440 mls/hr Documented By: Admin: 06/01/23 12:41 Dose: 440 mls/hr Documented By: Ondansetron HCl (Ondansetron 4 Mg/2 Ml Inj) 4 mg IV NOW ONE Stop: 06/01/23 09:40 Last Admin: 06/01/23 09:42 Dose: 4 mg Documented By: ST Vital Signs Vital signs: Vital Signs - 8 hr 06/01/23 11:00 06/01/23 11:00 06/01/23 11:33 Pulse Rate 67 85 Respiratory Rate 19 56 H Blood Pressure 145/70 H Oxygen Delivery Method 06/01/23 12:00 06/01/23 12:29 06/01/23 12:29 Pulse Rate 62 61 Respiratory Rate 18 24 Blood Pressure 124/68 Oxygen Delivery Method 06/01/23 12:30 06/01/23 12:30 06/01/23 13:00 Pulse Rate 63 Respiratory Rate 17 Blood Pressure 127/62 124/61 Oxygen Delivery Method 06/01/23 13:00 06/01/23 13:19 Pulse Rate 61 Respiratory Rate 17 Blood Pressure Oxygen Delivery Method Room Air MDM - Altered Mental Status Lab Data 06/01/23 08:12 06/01/23 08:12 Labs: Lab Results 06/01/23 06/01/23 06/01/23 Range/Units 08:12 08:12 08:12 WBC 10.5 (4.5-11.0) X10^3/uL RBC 4.51 (4.0-5.2) X10^6/uL Hgb 13.9 (12.0-16.0) g/dL Hct 41.5 (36-46) % MCV 92.0 (80-100) fL MCH 30.8 (26-34) PG MCHC 33.5 (30-36) % RDW 13.9 (11.6-14.8) % Plt Count 312 (150-400) X10^3/uL Neut % (Auto) 66.4 (50-75) % Lymph % (Auto) 25.5 (25-40) % [place] % (Auto) 5.3 (3-14) % Eos % (Auto) 2.4 (2-4) % Baso % (Auto) 0.4 (0-2) % Neut # (Auto) 7000 (1934-5204) /uL Lymph # (Auto) 2700 (1818-7106) /uL [place] # (Auto) 600 (0-900) /uL Eos # (Auto) 300 (0-450) /uL Baso # (Auto) 0 (0-100) /uL PT 11.0 (10.1-12.7) SECONDS INR 1.0 (0.9-1.3) APTT 28 (26-36) SECONDS Sodium 141 (137-145) mmol/L Potassium 3.7 (3.4-5.1) mmol/L Chloride 106 (98-107) mmol/L Carbon Dioxide 17 L (22-32) mmol/L BUN 13 (7-17) mg/dL Creatinine 0.92 (0.52-1.04) mg/dL Estimated GFR > 60 (>60) mL/min BUN/Creatinine Ratio 14.1 (6-22) Glucose 136 H (80-110) mg/dL Lactate (0.7-2.1) mmol/L Calcium 8.8 (8.4-10.2) mg/dL Total Bilirubin 0.5 (0.2-1.3) mg/dL AST 28 (14-36) IU/L ALT 35 H (<35) IU/L Alkaline Phosphatase 100 (38-126) U/L Ammonia (9-30) umol/L Total Creatine Kinase 65 (30-135) U/L Troponin I < 0.012 (0.01-0.034) ng/mL Total Protein 7.1 (6.3-8.2) g/dL Albumin 4.4 (3.5-5.0) g/dL Globulin 2.7 (1.7-4.1) g/dL Albumin/Globulin Ratio 1.6 (1.0-2.8) Procalcitonin (<0.5) ng/mL TSH (0.47-4.68) uIU/mL Free T4 (0.78-2.19) ng/dL Prolactin 143.0 H (3.0-18.6) ng/mL Urine Color Urine Appearance Urine pH (4.5-8.0) Ur Specific [place] (1.000-1.035) Urine Protein (Negative) Urine Glucose (UA) (Negative) g/dL Urine Ketones (NEGATIVE) Urine Occult Blood (Negative) Urine Nitrate (Negative) Urine Bilirubin (NEGATIVE) Urine Urobilinogen (0.2) E.U./dL Ur Leukocyte Esterase (NEGATIVE) Urine RBC (0-5/HPF) Urine WBC (0-5/HPF) Ur Squamous Epith Cells (0-5/HPF) Amorphous Sediment Urine Bacteria (None) Hyaline Casts (None) Salicylates < 1.0 (<20) mg/dL U Opiates 300ng/mL cut (Negative) Ur Oxycodone Screen (Negative) Urine Methadone Screen (Negative) Acetaminophen < 10 (10-30) ug/mL Ur Barbiturates Screen (Negative) U Tricyclic Antidepress (Negative) Ur Phencyclidine Scrn (Negative) Ur Amphetamines Screen (Negative) U Methamphetamines Scrn (Negative) Ur MDMA Scrn (Ecstasy) (Negative) U Benzodiazepines Scrn (Negative) Urine Cocaine Screen (Negative) U Marijuana (THC) Screen (Negative) Ethyl Alcohol < 10 ( - 10) mg/dL SARS-CoV-2 (PCR) (Negative) 06/01/23 06/01/23 06/01/23 Range/Units 08:12 08:12 08:12 WBC (4.5-11.0) X10^3/uL RBC (4.0-5.2) X10^6/uL Hgb (12.0-16.0) g/dL Hct (36-46) % MCV (80-100) fL MCH (26-34) PG MCHC (30-36) % RDW (11.6-14.8) % Plt Count (150-400) X10^3/uL Neut % (Auto) (50-75) % Lymph % (Auto) (25-40) % [place] % (Auto) (3-14) % Eos % (Auto) (2-4) % Baso % (Auto) (0-2) % Neut # (Auto) (9340-0706) /uL Lymph # (Auto) (7795-6308) /uL [place] # (Auto) (0-900) /uL Eos # (Auto) (0-450) /uL Baso # (Auto) (0-100) /uL PT (10.1-12.7) SECONDS INR (0.9-1.3) APTT (26-36) SECONDS Sodium (137-145) mmol/L Potassium (3.4-5.1) mmol/L Chloride (98-107) mmol/L Carbon Dioxide (22-32) mmol/L BUN (7-17) mg/dL Creatinine (0.52-1.04) mg/dL Estimated GFR (>60) mL/min BUN/Creatinine Ratio (6-22) Glucose (80-110) mg/dL Lactate 11.0 H* (0.7-2.1) mmol/L Calcium (8.4-10.2) mg/dL Total Bilirubin (0.2-1.3) mg/dL AST (14-36) IU/L ALT (<35) IU/L Alkaline Phosphatase (38-126) U/L Ammonia (9-30) umol/L Total Creatine Kinase (30-135) U/L Troponin I (0.01-0.034) ng/mL Total Protein (6.3-8.2) g/dL Albumin (3.5-5.0) g/dL Globulin (1.7-4.1) g/dL Albumin/Globulin Ratio (1.0-2.8) Procalcitonin (<0.5) ng/mL TSH 5.45 H (0.47-4.68) uIU/mL Free T4 1.14 (0.78-2.19) ng/dL Prolactin (3.0-18.6) ng/mL Urine Color Urine Appearance Urine pH (4.5-8.0) Ur Specific [place] (1.000-1.035) Urine Protein (Negative) Urine Glucose (UA) (Negative) g/dL Urine Ketones (NEGATIVE) Urine Occult Blood (Negative) Urine Nitrate (Negative) Urine Bilirubin (NEGATIVE) Urine Urobilinogen (0.2) E.U./dL Ur Leukocyte Esterase (NEGATIVE) Urine RBC (0-5/HPF) Urine WBC (0-5/HPF) Ur Squamous Epith Cells (0-5/HPF) Amorphous Sediment Urine Bacteria (None) Hyaline Casts (None) Salicylates (<20) mg/dL U Opiates 300ng/mL cut (Negative) Ur Oxycodone Screen (Negative) Urine Methadone Screen (Negative) Acetaminophen (10-30) ug/mL Ur Barbiturates Screen (Negative) U Tricyclic Antidepress (Negative) Ur Phencyclidine Scrn (Negative) Ur Amphetamines Screen (Negative) U Methamphetamines Scrn (Negative) Ur MDMA Scrn (Ecstasy) (Negative) U Benzodiazepines Scrn (Negative) Urine Cocaine Screen (Negative) U Marijuana (THC) Screen (Negative) Ethyl Alcohol ( - 10) mg/dL SARS-CoV-2 (PCR) (Negative) 06/01/23 06/01/23 06/01/23 Range/Units 08:12 08:35 08:40 WBC (4.5-11.0) X10^3/uL RBC (4.0-5.2) X10^6/uL Hgb (12.0-16.0) g/dL Hct (36-46) % MCV (80-100) fL MCH (26-34) PG MCHC (30-36) % RDW (11.6-14.8) % Plt Count (150-400) X10^3/uL Neut % (Auto) (50-75) % Lymph % (Auto) (25-40) % [place] % (Auto) (3-14) % Eos % (Auto) (2-4) % Baso % (Auto) (0-2) % Neut # (Auto) (4193-6990) /uL Lymph # (Auto) (8368-7037) /uL [place] # (Auto) (0-900) /uL Eos # (Auto) (0-450) /uL Baso # (Auto) (0-100) /uL PT (10.1-12.7) SECONDS INR (0.9-1.3) APTT (26-36) SECONDS Sodium (137-145) mmol/L Potassium (3.4-5.1) mmol/L Chloride (98-107) mmol/L Carbon Dioxide (22-32) mmol/L BUN (7-17) mg/dL Creatinine (0.52-1.04) mg/dL Estimated GFR (>60) mL/min BUN/Creatinine Ratio (6-22) Glucose (80-110) mg/dL Lactate (0.7-2.1) mmol/L Calcium (8.4-10.2) mg/dL Total Bilirubin (0.2-1.3) mg/dL AST (14-36) IU/L ALT (<35) IU/L Alkaline Phosphatase (38-126) U/L Ammonia < 9 L (9-30) umol/L Total Creatine Kinase (30-135) U/L Troponin I (0.01-0.034) ng/mL Total Protein (6.3-8.2) g/dL Albumin (3.5-5.0) g/dL Globulin (1.7-4.1) g/dL Albumin/Globulin Ratio (1.0-2.8) Procalcitonin 0.04 (<0.5) ng/mL TSH (0.47-4.68) uIU/mL Free T4 (0.78-2.19) ng/dL Prolactin (3.0-18.6) ng/mL Urine Color Urine Appearance Urine pH (4.5-8.0) Ur Specific [place] (1.000-1.035) Urine Protein (Negative) Urine Glucose (UA) (Negative) g/dL Urine Ketones (NEGATIVE) Urine Occult Blood (Negative) Urine Nitrate (Negative) Urine Bilirubin (NEGATIVE) Urine Urobilinogen (0.2) E.U./dL Ur Leukocyte Esterase (NEGATIVE) Urine RBC (0-5/HPF) Urine WBC (0-5/HPF) Ur Squamous Epith Cells (0-5/HPF) Amorphous Sediment Urine Bacteria (None) Hyaline Casts (None) Salicylates (<20) mg/dL U Opiates 300ng/mL cut (Negative) Ur Oxycodone Screen (Negative) Urine Methadone Screen (Negative) Acetaminophen (10-30) ug/mL Ur Barbiturates Screen (Negative) U Tricyclic Antidepress (Negative) Ur Phencyclidine Scrn (Negative) Ur Amphetamines Screen (Negative) U Methamphetamines Scrn (Negative) Ur MDMA Scrn (Ecstasy) (Negative) U Benzodiazepines Scrn (Negative) Urine Cocaine Screen (Negative) U Marijuana (THC) Screen (Negative) Ethyl Alcohol ( - 10) mg/dL SARS-CoV-2 (PCR) Negative (Negative) 06/01/23 06/01/23 06/01/23 Range/Units 10:48 10:58 10:58 WBC (4.5-11.0) X10^3/uL RBC (4.0-5.2) X10^6/uL Hgb (12.0-16.0) g/dL Hct (36-46) % MCV (80-100) fL MCH (26-34) PG MCHC (30-36) % RDW (11.6-14.8) % Plt Count (150-400) X10^3/uL Neut % (Auto) (50-75) % Lymph % (Auto) (25-40) % [place] % (Auto) (3-14) % Eos % (Auto) (2-4) % Baso % (Auto) (0-2) % Neut # (Auto) (6033-6458) /uL Lymph # (Auto) (0523-4038) /uL [place] # (Auto) (0-900) /uL Eos # (Auto) (0-450) /uL Baso # (Auto) (0-100) /uL PT (10.1-12.7) SECONDS INR (0.9-1.3) APTT (26-36) SECONDS Sodium (137-145) mmol/L Potassium (3.4-5.1) mmol/L Chloride (98-107) mmol/L Carbon Dioxide (22-32) mmol/L BUN (7-17) mg/dL Creatinine (0.52-1.04) mg/dL Estimated GFR (>60) mL/min BUN/Creatinine Ratio (6-22) Glucose (80-110) mg/dL Lactate 2.5 H (0.7-2.1) mmol/L Calcium (8.4-10.2) mg/dL Total Bilirubin (0.2-1.3) mg/dL AST (14-36) IU/L ALT (<35) IU/L Alkaline Phosphatase (38-126) U/L Ammonia (9-30) umol/L Total Creatine Kinase (30-135) U/L Troponin I (0.01-0.034) ng/mL Total Protein (6.3-8.2) g/dL Albumin (3.5-5.0) g/dL Globulin (1.7-4.1) g/dL Albumin/Globulin Ratio (1.0-2.8) Procalcitonin (<0.5) ng/mL TSH (0.47-4.68) uIU/mL Free T4 (0.78-2.19) ng/dL Prolactin (3.0-18.6) ng/mL Urine Color Yellow Urine Appearance Clear Urine pH 8.0 (4.5-8.0) Ur Specific [place] 1.010 (1.000-1.035) Urine Protein Negative (Negative) Urine Glucose (UA) Negative (Negative) g/dL Urine Ketones Negative (NEGATIVE) Urine Occult Blood Negative (Negative) Urine Nitrate Negative (Negative) Urine Bilirubin Negative (NEGATIVE) Urine Urobilinogen 0.2 (0.2) E.U./dL Ur Leukocyte Esterase Negative (NEGATIVE) Urine RBC None seen (0-5/HPF) Urine WBC 0-1/hpf (0-5/HPF) Ur Squamous Epith Cells 0-1 /hpf (0-5/HPF) Amorphous Sediment 1+ Urine Bacteria None seen (None) Hyaline Casts 0-1/lpf (None) Salicylates (<20) mg/dL U Opiates 300ng/mL cut Negative (Negative) Ur Oxycodone Screen Negative (Negative) Urine Methadone Screen Negative (Negative) Acetaminophen (10-30) ug/mL Ur Barbiturates Screen Negative (Negative) U Tricyclic Antidepress Negative (Negative) Ur Phencyclidine Scrn Negative (Negative) Ur Amphetamines Screen Negative (Negative) U Methamphetamines Scrn Negative (Negative) Ur MDMA Scrn (Ecstasy) Negative (Negative) U Benzodiazepines Scrn Negative (Negative) Urine Cocaine Screen Negative (Negative) U Marijuana (THC) Screen Negative (Negative) Ethyl Alcohol ( - 10) mg/dL SARS-CoV-2 (PCR) (Negative) Imaging Data CT scan - head: Radiologist's Impression: [place] [address] CT Scan Report Signed Patient: Mary Martini MR#: [id number] : 1950 Acct:[id number] Age/Sex: 73 / F Date of Service: 06/01/23 Loc: ED Accession Number: [id number] ?? Procedure: CT head/brain wo con Ordering Provider: Wilma Gonzales D.O. PROCEDURE:? CT HEAD/BRAIN WO CON ? INDICATIONS:? altered mental status, improved, abd pain ? TECHNIQUE:? Noncontrast 4.5 mm thick angled axial sections acquired from the foramen magnum to the vertex, with coronal and sagittal reformats.? For radiation dose reduction, the following was used:? automated exposure control, adjustment of mA and/or kV according to patient size.? ? COMPARISON:? None. ? FINDINGS:? Image quality:? Excellent.? ? CSF spaces:? Basal cisterns are patent.? No extra-axial fluid collections.? The ventricles are symmetric in size and shape.? ? Brain:? No intracranial bleeds or masses.? There is cerebral volume loss for age, with resultant ventricular and sulcal prominence.? There are periventricular and deep white matter chronic small vessel ischemic changes.? There is intracranial internal carotid artery atherosclerosis.? ? Skull and face:? Calvarium and visualized facial bones appear intact, without suspicious lesions.? ? Sinuses:? Visualized sinuses and mastoids are clear.? ? IMPRESSION:? 1. No acute intracranial abnormality. 2. Cerebral volume loss and small vessel ischemic changes.? Dictated by: Jonathan Cho M.D. on 06/01/2023 at 8:45 ? ? Approved by: Jonathan Cho M.D. on 06/01/2023 at 8:47?? Chest x-ray: Radiologist's Impression: [address] [address] XRay Report Signed Patient: Mary Martini MR#: [id number] : 1950 Acct:[id number] Age/Sex: 73 / F Date of Service: 06/01/23 Loc: ED Accession Number: [id number] ?? Procedure: XR chest 1V Ordering Provider: Wilma Gonzales D.O. PROCEDURE:? XR CHEST 1V ? INDICATIONS:? altered mental status, improved, abd pain ? TECHNIQUE:? One view of the chest was acquired.? ? COMPARISON:? [facility], CT, CT ABDOMEN PELVIS W CON, 06/01/2023, 8:32.? [facility], CR, XR CHEST 2V, 11/08/2019, 15:16. ? FINDINGS:? ? Surgical changes and devices:? None.? ? Lungs and pleura:? Mild diffuse interstitial prominence with patchy bibasilar airspace opacities.? No substantial pleural effusion.? No pneumothorax.? No focal consolidation. ? Mediastinum:? Mediastinal contours appear normal.? Heart size is borderline enlarged.? ? Bones and chest wall:? No suspicious bony lesions.? Overlying soft tissues appear unremarkable.? ? IMPRESSION:? Borderline cardiomegaly with diffuse interstitial prominence and patchy bibasilar opacities.? Findings are nonspecific and may represent atelectasis although an infectious or inflammatory process not excluded if clinically appropriate.? Other considerations include mild pulmonary edema/CHF. ? ? Dictated by: Omer Malagon M.D. on 06/01/2023 at 9:20 ? ? Approved by: Omer Malagon M.D. on 06/01/2023 at 9:23?? CT scan - abdomen/pelvis: Radiologist's Impression: [address] [address] [address] Scan Report Signed Patient: Mary Martini MR#: [id number] : 1950 Acct:[id number] Age/Sex: 73 / F Date of Service: 06/01/23 Loc: ED Accession Number: [id number] ?? Procedure: CT abdomen pelvis w con Ordering Provider: Wilma Gonzales D.O. PROCEDURE:? CT ABDOMEN PELVIS W CON ? INDICATIONS:? altered mental status, improved, abd pain ? TECHNIQUE:? After the administration of intravenous contrast, axial sections acquired from the lung bases to the pubic symphysis.? Coronal and sagittal reformats were performed.? For radiation dose reduction, the following was used:? automated exposure control, adjustment of mA and/or kV according to patient size.? ? COMPARISON:? None. ? FINDINGS: Image quality:? Excellent.? ? Lung bases:? Bibasilar atelectasis.? No pneumothorax or pleural effusion. ? Solid organs:? Liver: The liver has no mass or intrahepatic biliary ductal dilatation. The portal vein and hepatic veins are patent. Biliary:? Possible gallstone in the neck.? Gallbladder wall thickening. Pancreas: The pancreas has no mass or ductal dilatation. There is no surrounding inflammation. Spleen: Normal size. There are no masses. Adrenals: No hypertrophy or nodules. Kidneys: No obstructive calculus or hydronephrosis.? No solid mass. No cystic mass. ? Peritoneum and bowel:? Small hiatal hernia.? The small bowel has a normal caliber and appearance. The terminal ileum is normal. The large bowel has a normal caliber and appearance.? The appendix is normal. No free fluid or air.? ? Nodes and vessels:? No retroperitoneal or mesenteric adenopathy by size criteria.? The aorta has atherosclerosis with no aneurysmal dilatation.? ? Miscellaneous:? No abdominal wall mass or hernia. ? PELVIS:? Genitourinary:? The bladder has no wall thickening or mass. No bladder calcifications. ? Bones:? Multilevel degenerative changes.? Anterior height loss of T12.? Central height loss of T9 and T11.? Degenerative disc disease with bilateral pars defects at L5-S1 with grade 1 anterolisthesis.? ? IMPRESSION:? 1. Gallbladder wall thickening with possible stone.? Recommend gallbladder ultrasound. 2. No other acute abdominal or pelvic abnormality.? ? ? Dictated by: Jonathan Cho M.D. on 06/01/2023 at 8:48 ? ? Approved by: Jonathan Cho M.D. on 06/01/2023 at 8:53?? US - abdomen: Radiologist's Impression: Mary Martini??73??F??1950 ? Allergy/Adv: codeine Close Abdomen Ultrasound (Signed) Jonathan Cho - 06/01/[address] (Signed) Jonathan Cho - 06/01/23 Chest X-Ray (Signed) Omer Malagon - 06/01/23 Abdomen/Pelvis CT (Signed) Jonathan Cho - 06/01/23 Ribs X-Ray (Signed) Yuridia Daugherty - 07/25/20 Carotid Doppler Study (Signed) TroyRen - 01/03/20 Brain MRI (Signed) Josh Alvarado - 01/03/20 Chest X-Ray (Signed) Franck West - 11/08/19 Mammogram, Additional Views (Signed) Truman Lopes - 09/10/19 Breast Ultrasound (Signed) Call,Truman - 09/10/19 Mammogram Screening (Signed) Jayde Harris - 08/28/19 [place] [address] Ultrasound Report Signed Patient: Mary Martini MR#: [id number] : 1950 Acct:[id number] Age/Sex: 73 / F Date of Service: 06/01/23 Loc: ED Accession Number: [id number] ?? Procedure: US abdomen limited Ordering Provider: Wilma Gonzales D.O. PROCEDURE:? US ABDOMEN LIMITED ? INDICATIONS:? FOLLOW UP CT TODAY ? TECHNIQUE:? Real-time scanning was performed of the abdominal and retroperitoneal organs, with image documentation.? ? COMPARISON:? [facility], CT, CT ABDOMEN PELVIS W CON, 06/01/2023, 8:32. ? FINDINGS:? ? Liver:? The liver has a normal size.? There is increased echogenicity consistent with hepatic steatosis.? An anechoic cyst is present in the right lobe of the liver. ? Gallbladder:? No stone is identified.? Likely the suspected stone identified on CT was due to density of the neck of the gallbladder.? Also the wall is not significantly thickened, the CT finding is probably due to motion artifact. ? Biliary ducts:? Intrahepatic bile ducts are non-dilated.? Extrahepatic bile duct caliber measures 4.2 mm.? Normal is 6-7 mm or less in diameter, or 10 mm or less post-cholecystectomy.? ? Pancreas:? Visualized portions of the pancreas are sonographically normal.? ? Miscellaneous:? No free abdominal fluid.? ? IMPRESSION:? No acute ultrasound abnormality. ? REFERENCE MATERIALS ? ? DELETE FROM FINAL REPORT ? ACR White Paper:? Incidental Findings of Gallbladder and Biliary Tract on CT/MRI * Gallstones without mass: perform US only if symptomatic.? 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 No followup is specifically recommended, but can be performed at clinicians' discretion, using post-contrast CT.? * Dense GB contents (20-100 HU):? sludge, vicarious contrast excretion, hemorrh age, or stones.? No specific followup needed.? * Diffuse GB wall thickening >3 mm, without mass:? hepatitis, CHF, liver disease, hypoproteinemia, or pancreatitis.? No specific followup needed.? * Focal GB wall thickening or mass:? polyp, GB CA, cholesterolosis, adenomyomatosis.? Evaluation and followup depends on mass size and clinical factors.? US may have specific features for adenomyomatosis.? * GB polyp 6 mm or less:? benign, no followup needed.? * GB polyp 7-9 mm:? benign, adenoma vs small CA.? Yearly US followup, with surgical consult if size increase.? * GB polyp 10 mm or larger:? surgical consult.? * Pericholecystic fluid: GB perforation or other collection: individual assessment needed.? * Distended GB (greater than 9 x 4 cm):? GB obstruction or simply a fasting state.? No further evaluation if asymptomatic.? * Biliary duct dilation: >6-7 mm diameter, or >10 mm s/p cholecystectomy.? Recommend correlation with LFT's.? If LFT's abnormal, consider MRCP, ERCP, or endoscopic US for evaluation.? Dictated by: Jonathan Cho M.D. on 06/01/2023 at 10:42 ? ? Approved by: Jonathan Cho M.D. on 06/01/2023 at 10:46?? ECG Data Attestation: I personally reviewed and interpreted this ECG as follows: Interpretation: Sinus rhythm with sinus arrhythmia, rate of 67 TX 146 QRS of [address] No acute [address] elevation appreciated. No depression noted. Patient has prior from 10/25/2016 and 08/17/2014 which appears similar today's. MDM Narrative Medical decision making narrative: 73-year-old female presents with complaint of altered mental status which has been improving prior to arrival with 1 prior similar episode in the past and some complaint of abdominal pain. Patient appears to be currently at baseline. She does appear somewhat uncomfortable. Plan for head CT, imaging including chest and abdominal imaging, labs, fluids and re-evaluation. Has been notes 1 prior episode where he describes some decerebrate posturing and was seen in [place] was found to be COVID positive at that time but had description what sounds like possible seizure activity only he states it was ruled out by lab work. Head CT is negative, CT abd/pelvis cause cyst in the right lobe of the liver, gallbladder wall thickening with possible stone, no acute abdominal or pelvic abnormality. Abdominal ultrasound shows no wall thickening or obvious stone suspect that changes on CT were motion artifact. Chest x-ray borderline cardiomegaly with diffuse interstitial prominence patchy bibasilar passive he is infectious or inflammatory process. Lab workup CBC is negative, coags negative, CMP shows a CO2 of 17, glucose 136 lactate was 11 repeated 3 hours has improved to 2.5 for L bolus, negative ammonia and LFTs, TSH 5.45 but negative tree T4. Prolactin is 143. Urine shows no signs of infection U tox is negati ve, COVID is negative as well. Suspect patient had seizure-like activity, consultation with Neurology planned. Patient has returned to baseline mental status has not had any additional seizure activity here in the department. She is feeling much improved quite alert appropriate and definitely significant improvement from her initial arrival. Spoke with neurology, Dr. Felix from [facility] neurology. Recommends 500mg Keppra BID and follow up with neurology for EEG and MRI as outpatient. Return precautions and seizure precautions. Discussed with patient's family. They feel comfortable with this plan she was given initial dose of IV Keppra here in the department. Discussed all return precautions patient spends most of her time with her little to no time alone. All questions answered she has primary care follow-up available with Dr. Ambrosio. Discharge Plan Departure Patient Disposition: Home Clinical Impression: Acute alteration in mental status, Seizure Instructions: DI for Seizure Disorder -- Adult Activity Restrictions/Additional Instructions: Please follow up with neurology for recheck, call for an appointment on Friday. They also recommend outpatient EEG and MRI when able. Please also follow up with primary care as well. No driving, hazardous activities or being in situations where a sudden loss of consciousness would be dangerous. It is recommended that you start Keppra 500mg twice daily until you see neurology. Prescription sent to [facility] in [place]. Please return for new or recurrent symptoms, fevers, severe headaches, altered mental status, persistent vomiting, new numbness, tingling weakness or other concerning changes. Prescriptions: New levetiracetam [Keppra] 500 mg tablet 500 mg PO BID 60 Days Qty: 120 0RF No Action prednisone 50 mg tablet 50 mg PO DAILY Qty: 5 0RF Patient Comments: started 10/07, 6 tabs total multivitamin Tablet 1 tab PO DAILY ibuprofen [Advil] 200 mg Tablet 200 mg PO PRN PRN (Reason: pain) valacyclovir 1 gram Tablet 1,000 mg PO TID Patient Comments: started 10/06, has had six total doses famciclovir 500 mg Tablet 500 mg PO Q8H Patient Comments: Was supposed to start this 10/08 instead of the valacyclovir to see if nausea improved, but did not start any doses due to nausea hydromorphone 4 mg Tablet 4 mg PO Q4HR PRN (Reason: Pain, Severe (7-10)) Qty: 30 0RF Referrals: Rafi Felix MD [Non-Staff] - Phuong Ambrosio MD [Primary Care Provider] - Stand Alone Forms: Patient Portal/API
[2023-06-01 08:38] LABS: Add Manual Diff / Slide Review NO; Basophils Absolute Auto 0 /uL (0-100); Basophils Percent Auto 0.4 % (0-2); Eosinophils Absolute Auto 300 /uL (0-450); Eosinophils Percent Auto 2.4 % (2-4); Hematocrit 41.5 % (36-46); Hemoglobin 13.9 g/dL (12.0-16.0); Lymphocytes Absolute Auto 2700 /uL (1100-4500); Lymphocytes Percent Auto 25.5 % (25-40); Mean Corpuscular HGB Conc 33.5 % (30-36); Mean Corpuscular Hemoglobin 30.8 PG (26-34); Monocytes Absolute Auto 600 /uL (0-900); Monocytes Percent Auto 5.3 % (3-14); Neutrophils Absolute Auto 7000 /uL (1500-7000); Neutrophils Percent Auto 66.4 % (50-75); Platelet Count 312 X10^3/uL (150-400); Red Blood Cell Count 4.51 X10^6/uL (4.0-5.2); Red Cell Distribution Width 13.9 % (11.6-14.8); White Blood Cell Count 10.5 X10^3/uL (4.5-11.0)
[2023-06-01 08:42] LABS: PTT Partial Thromboplastin Tim 28 SECONDS (26-36)
[2023-06-01 08:46] LABS: Acetaminophen < 10 ug/mL (10-30); Albumin 4.4 g/dL (3.5-5.0); Albumin Globulin Ratio 1.6 (1.0-2.8); Alkaline Phosphatase 100 U/L (38-126); Aspartate Aminotransferase 28 IU/L (14-36); BUN Creatinine Ratio 14.1 (6-22); Bilirubin Total 0.5 mg/dL (0.2-1.3); Blood Urea Nitrogen 13 mg/dL (7-17); Calcium 8.8 mg/dL (8.4-10.2); Carbon Dioxide 17 mmol/L (22-32); Chloride 106 mmol/L (98-107); Creatine Kinase 65 U/L (30-135); Estimated Glomerular Filt Rate > 60 mL/min (>60); Ethanol (ETOH) < 10 mg/dL; Globulin 2.7 g/dL (1.7-4.1); Glucose 136 mg/dL (80-110); HEMOLYSIS < 15 (0-50); Potassium 3.7 mmol/L (3.4-5.1); Salicylate < 1.0 mg/dL (<20); Sodium 141 mmol/L (137-145); Total Protein 7.1 g/dL (6.3-8.2)
[2023-06-01 08:52] LABS: Alanine Aminotransferase 35 IU/L (<35)
[2023-06-01 08:57] LABS: Troponin I < 0.012 ng/mL (0.01-0.034)
[2023-06-01 09:00] LABS: Ammonia (NH3) < 9 umol/L (9-30)
[2023-06-01] MEDS: SODIUM CHLORIDE 0.9% 1,000 ML 150 ML IV (09:12)
[2023-06-01 09:16] LABS: Thyroid Stimulating Hormone 5.45 uIU/mL (0.47-4.68)
--- NOTE | 2023-06-01 09:30 | PC.NURSE ---
NS rate changed to 999 ml/hr per MD verbal order
[2023-06-01 09:33] LABS: COVID19 -Nasal RAPID Negative (Negative)
[2023-06-01] MEDS: ONDANSETRON 4 MG/2 ML INJ IV (09:42)
[2023-06-01 10:09] LABS: Free T4, Direct Thyroxine 1.14 ng/dL (0.78-2.19)
--- NOTE | 2023-06-01 10:16 | DI.US.S_ITS ---
PROCEDURE: US ABDOMEN LIMITED INDICATIONS: FOLLOW UP CT TODAY TECHNIQUE: Real-time scanning was performed of the abdominal and retroperitoneal organs, with image documentation. COMPARISON: [facility], CT, CT ABDOMEN PELVIS W CON, 06/01/2023, 8:32. FINDINGS: Liver: The liver has a normal size. There is increased echogenicity consistent with hepatic steatosis. An anechoic cyst is present in the right lobe of the liver. Gallbladder: No stone is identified. Likely the suspected stone identified on CT was due to density of the neck of the gallbladder. Also the wall is not significantly thickened, the CT finding is probably due to motion artifact. Biliary ducts: Intrahepatic bile ducts are non-dilated. Extrahepatic bile duct caliber measures 4.2 mm. Normal is 6-7 mm or less in diameter, or 10 mm or less post-cholecystectomy. Pancreas: Visualized portions of the pancreas are sonographically normal. Miscellaneous: No free abdominal fluid. IMPRESSION: No acute ultrasound abnormality. REFERENCE MATERIALS DELETE FROM FINAL REPORT ACR White Paper: Incidental Findings of Gallbladder and Biliary Tract on CT/MRI * Gallstones without mass: perform US only if symptomatic. 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 No followup is specifically recommended, but can be performed at clinicians' discretion, using post-contrast CT. * Dense GB contents (20-100 HU): sludge, vicarious contrast excretion, hemorrhage, or stones. No specific followup needed. * Diffuse GB wall thickening >3 mm, without mass: hepatitis, CHF, liver disease, hypoproteinemia, or pancreatitis. No specific followup needed. * Focal GB wall thickening or mass: polyp, GB CA, cholesterolosis, adenomyomatosis. Evaluation and followup depends on mass size and clinical factors. US may have specific features for adenomyomatosis. * GB polyp 6 mm or less: benign, no followup needed. * GB polyp 7-9 mm: benign, adenoma vs small CA. Yearly US followup, with surgical consult if size increase. * GB polyp 10 mm or larger: surgical consult. * Pericholecystic fluid: GB perforation or other collection: individual assessment needed. * Distended GB (greater than 9 x 4 cm): GB obstruction or simply a fasting state. No further evaluation if asymptomatic. * Biliary duct dilation: >6-7 mm diameter, or >10 mm s/p cholecystectomy. Recommend correlation with LFT's. If LFT's abnormal, consider MRCP, ERCP, or endoscopic US for evaluation. Dictated by: Jonathan Cho M.D. on 06/01/2023 at 10:42 Approved by: Jonathan Cho M.D. on 06/01/2023 at 10:46
[2023-06-01 10:19] LABS: Procalcitonin 0.04 ng/mL (<0.5)
[2023-06-01 10:34] LABS: Reflexed Lactate in 2 Hours Y
[2023-06-01 11:04] LABS: Lactate 2HR (Lactic Acid Rflx) 2.5 mmol/L (0.7-2.1)
--- NOTE | 2023-06-01 11:07 | PC.NURSE ---
Pt more alert and responsive than previously, answers many questions appropriately. Denies pain or discomfort. Assisted pt to bedside commode. Pt shows some confusion following commands directing her to commode, but with repeat instruction is able to sit on commode and urinate. Specimen obtained and delivered to lab.
[2023-06-01 11:09] LABS: Appearance Urine UA CLEAR; Bilirubin Urine UA NEGATIVE (NEGATIVE); Color Urine UA YELLOW; Glucose Urine UA NEGATIVE (Negative); Ketones Urine UA NEGATIVE (NEGATIVE); Leukocyte Esterase Urine UA NEGATIVE (NEGATIVE); Nitrite Urine UA NEGATIVE (Negative); Occult Blood Urine UA NEGATIVE (Negative); Protein Urine UA NEGATIVE (Negative); Urobilinogen Urine UA 0.2 E.U./dL (0.2)
[2023-06-01 11:12] LABS: UR Morphine/Opiate cutoff 300 Negative (Negative); Ur Creatinine Normal (Normal); Ur Specific Gravity Normal (Normal); Urine Amphetamines Negative (Negative); Urine Barbiturates Negative (Negative); Urine Benzodiazepines Negative (Negative); Urine Cocaine Negative (Negative); Urine MDMA Negative (Negative); Urine Methadone Negative (Negative); Urine Methamphetamines Negative (Negative); Urine Oxycodone Negative (Negative); Urine Phencyclidine Negative (Negative); Urine Tetrahydrocannabinol Negative (Negative); Urine Tricyclic Antidepressant Negative (Negative); Urine pH Normal (Normal)
[2023-06-01 11:16] LABS: RBC Urine None Seen (0-5/HPF); WBC Urine 0-1/HPF (0-5/HPF)
[2023-06-01 11:17] LABS: Amorphous Sediment Urine 1+; Bacteria Urine None Seen; Hyaline Casts Urine 0-1/LPF; Squamous Epithelial Cell Urine 0-1 /HPF (0-5/HPF)
[2023-06-01] MEDS: levETIRAcetam 1,000 MG in SODIUM CHLORIDE 0.9% 100 ML 440 MG IV (12:41)
--- NOTE | 2023-06-01 13:10 | PC.NURSE ---
Pt alert, interacting appropriately, at baseline mentation per and sons. Ambulates with standby assistance.
[2023-06-02 12:36] LABS: Osmolality, Serum 302 mOsmol/kg (280-301)
== END 2023-06-01 13:19 | disposition home or self-care (01) ==
PROVIDERS: Emergency Provider Emergency Medicine; PCP Family Medicine
DX: G40.909 Epilepsy, unspecified, not intractable, without status epilepticus (principal); R41.82 Altered mental status, unspecified; R10.9 Unspecified abdominal pain; Z20.822 Contact with and (suspected) exposure to COVID-19
CPT/HCPCS: 36415; 70450; 71045; 74177; 76705; 80053; 80305; 80320; 80329; 81001; 82140; 82550; 83605; 83930; 84145; 84146; 84439; 84443; 84484; 85025; 85610; 85730; 87040; 87086; 87635; 93005; 96361; 96365; 96375; 99285; C9803; G0480; J1953; J2405; Q9967

== ENCOUNTER → 2023-06-10 09:53 | Outpatient (CLI) | payer MEDICARE, OTHER, SELFPAY ==
--- NOTE | 2023-06-10 09:55 | DI.MRI.S_ITS ---
PROCEDURE: MR HEAD/BRAIN WO/W CON INDICATIONS: seizure TECHNIQUE: Noncontrast axial T1 spin echo, axial T2 fast spin echo, sagittal and axial FLAIR, axial gradient echo, axial diffusion and ADC, coronal thin-slice T2 FSE through the brain. Optional contrast, followed by axial and coronal and sagittal 3D VIBE or T1 spin echo with fat saturation sequences through the brain. COMPARISON: [facility], CT, CT HEAD/BRAIN WO CON, 06/01/2023, 8:32. [facility], MR, MR HEAD/BRAIN WO CON, 01/03/2020, 8:18. FINDINGS: Image quality: This examination is limited by involuntary motion artifact. CSF spaces: Ventricles are normal in size and shape. Basal cisterns are patent. No extra-axial fluid collections. Brain: No intracranial bleeds or mass effects. No abnormal intracranial enhancement. Peres-white matter interface appears intact. Diffusion weighted images demonstrate no acute ischemic insults. Brainstem appear normal. Normal intravascular flow voids are present. The hippocampal regions appear normal and symmetric in morphology. Note is made of age-appropriate brain parenchymal volume loss and chronic small vessel ischemic changes. Skull and face: Calvarial marrow signal is normal. Orbits appear normal. Incidental note is made of hyperostosis frontalis. This is not considered to be pathologic in a woman of this age. Sinuses: Sinuses and mastoids are clear. IMPRESSION: Normal brain MRI for age, without a cause of seizures identified. The hippocampi demonstrate a normal, symmetric appearance. No masses or abnormal enhancement can be seen. No findings of acute or subacute infarction can be seen. Dictated by: Ren Simmons M.D. on 06/10/2023 at 10:44 Approved by: Ren Simmons M.D. on 06/10/2023 at 10:46
== END ==
PROVIDERS: PCP Family Medicine; Referring Provider Family Medicine; Visit Provider Family Medicine
DX: R56.9 Unspecified convulsions (principal)
CPT/HCPCS: 70553; A9579

== ENCOUNTER 2025-04-10 14:04 | Emergency (ER) | payer MEDICARE, OTHER, SELFPAY ==
[2024-12-24 12:02] VITALS: BMI 26.5
[2025-04-10] VITALS (13 sets, daily range): BP systolic 155–195; BP diastolic 75–93; PULSE 67–97; RESP 14–32; TEMP 36.6; O2SAT 90–98; BMI 24.2
--- NOTE | 2025-04-10 14:18 | DI.RAD.S_ITS ---
PROCEDURE: XR CHEST 1V INDICATIONS: Possible stroke TECHNIQUE: One view of the chest was acquired. COMPARISON: [facility], CR, XR CHEST 1V, 06/01/2023, 8:37. [facility], CR, XR CHEST 2V, 11/08/2019, 15:16. FINDINGS: Surgical changes and devices: None. Lungs and pleura: Lungs are clear. No pleural effusions or pneumothorax. Mediastinum: Mediastinal contours appear normal. Heart size is normal. Bones and chest wall: No suspicious bony lesions. Overlying soft tissues appear unremarkable. IMPRESSION: No acute cardiopulmonary abnormality is seen. Dictated by: Thierry Palomo M.D. on 04/10/2025 at 15:01 Approved by: Thierry Palomo M.D. on 04/10/2025 at 15:01
--- NOTE | 2025-04-10 14:19 | DI.CT.S_ITS ---
PROCEDURE: CT HEAD/BRAIN WO CON INDICATIONS: facial droop TECHNIQUE: Noncontrast 4.5 mm thick angled axial sections acquired from the foramen magnum to the vertex, with coronal and sagittal reformats. For radiation dose reduction, the following was used: automated exposure control, adjustment of mA and/or kV according to patient size. COMPARISON: [facility], CT, CT HEAD/BRAIN WO CON, 06/01/2023, 8:32. FINDINGS: Image quality: Diagnostic. CSF spaces: Basal cisterns are patent. No extra-axial fluid collections. The ventricles are symmetric in size and shape. Brain: No intracranial bleeds or mass effect. There is cerebral volume loss, with resultant ventricular and sulcal prominence. There are periventricular and deep white matter chronic small vessel ischemic changes. There is intracranial internal carotid artery atherosclerosis. Skull and face: Calvarium and visualized facial bones appear intact, without suspicious lesions. Sinuses: Visualized sinuses and mastoids are clear. IMPRESSION: No acute intracranial pathology. Dictated by: Thierry Palomo M.D. on 04/10/2025 at 15:00 Approved by: Thierry Palomo M.D. on 04/10/2025 at 15:01
--- NOTE | 2025-04-10 14:27 | EKG_ITS ---
[place] [address] [address] [place] [id number] Test Date: 2025-04-10 Pat Name: Mary Martini Department: [facility] Room: Gender: Female [employer]: PENG : [id number] Requested By: Order Number: [id number] Reading MD: Seymour Arce Measurements Intervals [place] Rate: 71 P: WI: QRS: -5 QRSD: 92 T: 38 QT: 388 QTc: 421 Interpretive Statements Undetermined rhythm Low voltage QRS Incomplete right bundle branch block Electronically Signed On 04-13-2025 16:17:40 PDT by Seymour Arce
[2025-04-10 14:28] LABS: Add Manual Diff / Slide Review NO; Basophils Absolute Auto 0 /uL (0-100); Basophils Percent Auto 0.2 % (0-2); Eosinophils Absolute Auto 100 /uL (0-450); Eosinophils Percent Auto 0.5 % (2-4); Hematocrit 41.1 % (36-46); Hemoglobin 14.2 g/dL (12.0-16.0); Lymphocytes Absolute Auto 1500 /uL (1100-4500); Lymphocytes Percent Auto 15.1 % (25-40); Mean Corpuscular HGB Conc 34.4 % (30-36); Mean Corpuscular Hemoglobin 31.5 PG (26-34); Mean Corpuscular Volume 91.5 fL (80-100); Monocytes Absolute Auto 500 /uL (0-900); Monocytes Percent Auto 4.8 % (3-14); Neutrophils Absolute Auto 8000 /uL (1500-7000); Neutrophils Percent Auto 79.4 % (50-75); Platelet Count 243 X10^3/uL (150-400); Red Cell Distribution Width 13.6 % (11.6-14.8)
[2025-04-10 14:35] LABS: Prothrombin Time 11.2 SECONDS (9.4-12.5)
[2025-04-10 14:38] LABS: PTT Partial Thromboplastin Tim 33 SECONDS (25.1-36.5)
[2025-04-10 14:39] LABS: Alanine Aminotransferase 24 IU/L (<35); Albumin 4.8 g/dL (3.5-5.0); Albumin Globulin Ratio 1.8 (1.0-2.8); Alkaline Phosphatase 76 U/L (38-126); Aspartate Aminotransferase 30 IU/L (14-36); BUN Creatinine Ratio 26.7 (6-22); Bilirubin Total 0.8 mg/dL (0.2-1.3); Blood Urea Nitrogen 20 mg/dL (7-17); Calcium 9.3 mg/dL (8.4-10.2); Carbon Dioxide 25 mmol/L (22-32); Chloride 107 mmol/L (98-107); Creatine Kinase 35 U/L (30-135); Estimated Glomerular Filt Rate > 60 mL/min (>60); Globulin 2.7 g/dL (1.7-4.1); Glucose 174 mg/dL (70-99); HEMOLYSIS < 15 (0-50); Potassium 3.4 mmol/L (3.4-5.1); Sodium 141 mmol/L (137-145); Total Protein 7.5 g/dL (6.3-8.2)
[2025-04-10 14:50] LABS: Troponin I < 0.012 ng/mL (0.01-0.034)
[2025-04-10 15:21] LABS: UR Morphine/Opiate cutoff 300 Positive (Negative); Urine Amphetamines Negative (Negative); Urine Barbiturates Negative (Negative); Urine Benzodiazepines Negative (Negative); Urine Cocaine Negative (Negative); Urine MDMA Negative (Negative); Urine Methadone Negative (Negative); Urine Methamphetamines Negative (Negative); Urine Oxycodone Negative (Negative); Urine Phencyclidine Negative (Negative); Urine Tetrahydrocannabinol Negative (Negative); Urine Tricyclic Antidepressant Negative (Negative)
--- NOTE | 2025-04-10 16:16 | ED_ITS ---
HPI - Neuro Symptoms/Deficit General Chief Complaint: Neuro Symptoms/Deficit Stated Complaint: Right side of lip is droopy Time Seen by Provider: 04/10/25 16:07 Source: patient and other Mode of arrival: Ambulatory Limitations: no limitations History of Present Illness HPI Narrative: 75-year-old female history of dementia presents with patient's has been, caregiver/friend and son. Patient's last known normal was Friday but she was noted to have facial droop in the right of her upper and lower face. Caregiver mostly knows it although she does live with her he did not appreciate any changes until today. Patient does note a change she can not really indicate when she noticed it. Has not had similar in the past. No new speech changes she does have some perseverating speech. No chest pain or shortness of breath, no other GI or urinary symptoms reported. No weakness numbness or tingling reported no difficulty with gait. Has been notes she has been slightly more confused this week and has been noticing more sundowning behavior particularly agitation. States she was not been violent or aggressive. Patient was on quetiapine in the past but was found to be Chloe sedating at that time. Dr. Ambrosio is her primary care physician. On Anticoagulants: No Related Data Home Medications Medication Instructions Recorded Confirmed multivitamin 1 tab PO DAILY 10/07/18 12/24/24 levetiracetam 500 mg tablet mg PO 12/24/24 12/24/24 memantine 10 mg tablet 10 mg PO BID 12/24/24 12/24/24 quetiapine 25 mg tablet mg PO 12/24/24 12/24/24 rivastigmine 9.5 mg/24 hour topical 12/24/24 12/24/24 transdermal patch Previous Rx's Medication Instructions Recorded amoxicillin 875 mg-potassium 1 tab PO BID #14 tabs 12/24/24 clavulanate 125 mg tablet prednisone 10 mg tablets in a dose See Rx Instructions PO .COMPLEX 04/10/25 pack #45 ea quetiapine 25 mg tablet (Seroquel) 25 mg PO BEDTIME #5 tabs 04/10/25 valacyclovir 1 gram tablet 1,000 mg PO Q8H 7 days #21 tabs 04/10/25 (Valtrex) Allergies Allergy/AdvReac Type Severity Reaction Status Date / Time codeine [CODEINE] Allergy Unknown Nausea Verified 04/10/25 14:13 Review of Systems Review of Systems ROS Unobtainable: All systems reviewed & are unremarkable except as noted in HPI and below Hematologic/Lymphatic On Anticoagulants: No Patient History Medical History GERD (gastroesophageal reflux disease) Surgical History History of endometrial ablation Social History household members: spouse Smoking Status: Unknown if ever smoked alcohol intake: current Smoking Status: Unknown if ever smoked alcohol intake frequency: a few times a week Exam Narrative Exam Narrative: GEN: well nourished, well appearing female, alert and oriented to self, patient appears to be in mild distress. HEENT: Atraumatic, pupils are equal round reactive to light, extraocular movements are intact, nares are clear, TMs are clear with no fluid, there is no conjunctival pallor. Throat is clear without any exudates, erythema, tonsillar enlargement or uvular deviation, patient has facial droop on the left upper forehead, eye and nasolabial fold. HEART: Regular rate and rhythm without murmur, clicks, rubs. LUNGS:Lungs clear to auscultation, no wheezes, rales, crackles, chest moves symmetrically ABD:bowel sounds normal, soft, non-tender, no guarding, rebound, rigidity, no masses noted, no hepatosplenomegaly MSCL: Non-tender, no muscle atrophy, muscles strength 5/5 upper and lower extremities, full range of motion. NEURO:CN 2-12 intact, sensation normal, finger nose finger test normal, patient has no dysarthria does have some perseverating speech which is at her baseline. Normal gait. Initial Vital Signs Initial Vital Signs: Vital Signs Temperature 97.9 F 04/10/25 14:05 Pulse Rate 75 04/10/25 14:05 Respiratory Rate 14 04/10/25 14:05 Blood Pressure 161/86 H 04/10/25 14:05 Pulse Oximetry 97 04/10/25 14:05 Oxygen Delivery Method Room Air 04/10/25 14:05 Course Orders Ordered: ED Orders 04/10/25 14:18 XR chest 1V Stat EKG-12 Lead Stat 04/10/25 14:19 CT head/brain wo con Stat 04/10/25 14:20 Complete Blood Count AUTO DIFF Stat Comprehensive Metabolic Panel Stat PTT Partial Thromboplastin Zaki Stat Prothrombin Time INR Stat Troponin & CK Cardiac Panel Stat 04/10/25 15:00 Urine Drug Screen, Rapid Stat Discontinued Medications Ondansetron HCl (Ondansetron 4 Mg/2 Ml Inj) 4 mg IV NOW PRN PRN Reason: Nausea And Vomiting Ondansetron HCl (Ondansetron 4 Mg Odt) 4 mg PO NOW PRN PRN Reason: Nausea And Vomiting Vital Signs Vital signs: Vital Signs - 8 hr 04/10/25 14:05 04/10/25 14:09 04/10/25 14:09 Temperature 97.9 F Pulse Rate 75 72 Respiratory Rate 14 Blood Pressure 161/86 H 161/86 H Pulse Oximetry 97 96 Oxygen Delivery Method Room Air 04/10/25 14:16 04/10/25 14:16 04/10/25 14:30 Temperature Pulse Rate 78 67 Respiratory Rate 20 24 Blood Pressure 155/82 H Pulse Oximetry 96 95 Oxygen Delivery Method 04/10/25 14:30 04/10/25 14:48 04/10/25 14:48 Temperature Pulse Rate 85 Respiratory Rate Blood Pressure 174/79 H 195/93 H Pulse Oximetry 96 Oxygen Delivery Method 04/10/25 14:51 04/10/25 14:51 04/10/25 15:04 Temperature Pulse Rate 72 86 Respiratory Rate 20 20 Blood Pressure 189/77 H Pulse Oximetry 96 90 L Oxygen Delivery Method 04/10/25 15:06 04/10/25 15:06 04/10/25 15:30 Temperature Pulse Rate 87 67 Respiratory Rate 15 20 Blood Pressure 172/75 H Pulse Oximetry 98 98 Oxygen Delivery Method 04/10/25 15:31 04/10/25 15:31 04/10/25 16:00 Temperature Pulse Rate 67 68 Respiratory Rate 22 32 H Blood Pressure 188/79 H Pulse Oximetry 98 97 Oxygen Delivery Method 04/10/25 16:00 04/10/25 16:14 04/10/25 16:14 Temperature Pulse Rate 97 H Respiratory Rate 16 Blood Pressure 162/88 H 190/80 H Pulse Oximetry Oxygen Delivery Method 04/10/25 16:30 04/10/25 16:30 Temperature Pulse Rate 72 Respiratory Rate Blood Pressure 194/84 H Pulse Oximetry 98 Oxygen Delivery Method MDM - Neuro Symptoms/Deficit Lab Data 04/10/25 14:20 04/10/25 14:20 Labs: Lab Results 04/10/25 04/10/25 Range/Units 14:20 15:00 WBC 10.0 (4.5-11.0) X10^3/uL RBC 4.50 (4.0-5.2) X10^6/uL Hgb 14.2 (12.0-16.0) g/dL Hct 41.1 (36-46) % MCV 91.5 (80-100) fL MCH 31.5 (26-34) PG MCHC 34.4 (30-36) % RDW 13.6 (11.6-14.8) % Plt Count 243 (150-400) X10^3/uL Neut % (Auto) 79.4 H (50-75) % Lymph % (Auto) 15.1 L (25-40) % [place] % (Auto) 4.8 (3-14) % Eos % (Auto) 0.5 L (2-4) % Baso % (Auto) 0.2 (0-2) % Neut # (Auto) 8000 H (5525-7915) /uL Lymph # (Auto) 1500 (9547-5819) /uL [place] # (Auto) 500 (0-900) /uL Eos # (Auto) 100 (0-450) /uL Baso # (Auto) 0 (0-100) /uL PT 11.2 (9.4-12.5) SECONDS INR 1.0 (0.9-1.3) APTT 33 (25.1-36.5) SECONDS Sodium 141 (137-145) mmol/L Potassium 3.4 (3.4-5.1) mmol/L Chloride 107 (98-107) mmol/L Carbon Dioxide 25 (22-32) mmol/L BUN 20 H (7-17) mg/dL Creatinine 0.75 (0.52-1.04) mg/dL Estimated GFR > 60 (>60) mL/min BUN/Creatinine Ratio 26.7 H (6-22) Glucose 174 H (70-99) mg/dL Calcium 9.3 (8.4-10.2) mg/dL Total Bilirubin 0.8 (0.2-1.3) mg/dL AST 30 (14-36) IU/L ALT 24 (<35) IU/L Alkaline Phosphatase 76 (38-126) U/L Total Creatine Kinase 35 (30-135) U/L Troponin I < 0.012 (0.01-0.034) ng/mL Total Protein 7.5 (6.3-8.2) g/dL Albumin 4.8 (3.5-5.0) g/dL Globulin 2.7 (1.7-4.1) g/dL Albumin/Globulin Ratio 1.8 (1.0-2.8) U Opiates 300ng/mL cut Positive H (Negative) Ur Oxycodone Screen Negative (Negative) Urine Methadone Screen Negative (Negative) Ur Barbiturates Screen Negative (Negative) U Tricyclic Antidepress Negative (Negative) Ur Phencyclidine Scrn Negative (Negative) Ur Amphetamines Screen Negative (Negative) U Methamphetamines Scrn Negative (Negative) Ur MDMA Scrn (Ecstasy) Negative (Negative) U Benzodiazepines Scrn Negative (Negative) Urine Cocaine Screen Negative (Negative) U Marijuana (THC) Screen Negative (Negative) Urine pH Not Reportable Urine Specific [place] Not Reportable Ur Creatinine Not Reportable Point of Care Testing Glucose POC 176 Urine Dip Bedside Urine Glucose Negative Bedside Urine Bilirubin - Negative Bedside Urine Ketone - Negative Urine Specific [place] 1.010 Bedside Urine Occult Blood - Negative Bedside Urine pH 6.0 Bedside Urine Protein - Negative Bedside Urine Urobilinogen - Negative Bedside Urine Nitrite - Negative Bedside Urine Leukocytes - Negative Esterase ECG Data Attestation: I personally reviewed and interpreted this ECG as follows: Prior ECG tracings: available for review Interpretation: Undetermined rhythm rate of 71 QRS of 92 incomplete right bundle. Patient has prior EKG which shows sinus rhythm with sinus arrhythmia rate of 67 incomplete right bundle from 06/01/2023. Looks very similar to today's EKG. [facility] Narrative Medical decision making narrative: Labs show normal CBC predominance of neutrophils differential. Point of care urine is negative. Rapid drug screen is positive for opiates. Head CT shows no acute change. Chest x-ray shows no acute change. EKG shows undetermined rhythm incomplete right bundle-branch appears very similar to prior. Patient presents for right-sided facial droop last known normal is Friday per caregiver patient's has been who she lives with did not notice changes. Caregiver loss of the patient on Friday and states it was normal patient is also having difficulty closing the right eye. Patient has pretty significant dementia, has been did not really noted any change until today but friend/caregiver was not individual or really noticed does seem to be left upper and lower face seems most consistent with Ambrocio's palsy she was no other weakness of her upper extremities or lower extremities. Has some perseverating speech but that isn't a new change. 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 Discussed with the patient family can not completely rule out stroke but seems very unlikely and they feel comfortable with the plan to treat as Ambrocio's. Has been notes she was also had increased sundowning for the past week has been on Seroquel in the past at that time they felt it was too sedating but he feels now was probably an appropriate time to restart. Has not process setting primary care follow up but we will give a short course of a few tablets for home. Discharge Plan Departure Patient Disposition: Home Clinical Impression: Ambrocio's palsy Instructions: DI for Chokio Palsy Activity Restrictions/Additional Instructions: Follow-up with Dr. Ambrosio for recheck. Your symptoms today seem most consistent with Ambrocio's palsy, take oral medications as prescribed. The steroid prescribed, prednisone can sometimes be activating and ?weak people up.If you find that that is causing significant behavioral issues you can stop this medication. There is also an antiviral included. Use drops to the affected eye to help keep it moist. There is also a prescription for Seroquel to give nightly for any sundowning or behavioral issues prior to sleep. Prescription sent to [facility] in [place]. Please return for new or concerning changes, weakness of your upper extremities or lower extremities, sudden speech changes, rapid changes to mentation or other new or concerning changes. Prescriptions: New quetiapine [Seroquel] 25 mg tablet 25 mg PO BEDTIME Qty: 5 0RF prednisone 10 mg tablets,dose pack See Rx Instructions .ROUTE .COMPLEX Qty: 45 0RF Rx Instructions: 60 mg p.o. daily x5 days, then 50 mg p.o. x1 day, then 40 mg p.o. x1 day, then 30 mg p.o. x1 day, then 20 mg p.o. x1 day then 10 mg p.o. x1 day valacyclovir [Valtrex] 1 gram tablet 1,000 mg PO Q8H 7 Days Qty: 21 0RF No Action rivastigmine 9.5 mg/24 hour patch 24 hour topical memantine 10 mg tablet 10 mg PO BID levetiracetam 500 mg tablet PO Patient Comments: Take 1/2 tablets (250 mg) by mouth 2 (two) times a day. quetiapine 25 mg tablet PO amoxicillin-pot clavulanate 875-125 mg tablet 1 tab PO BID Qty: 14 0RF multivitamin Tablet 1 tab PO DAILY Referrals: Phuong Ambrosio MD [Primary Care Provider] - Stand Alone Forms: Patient Portal/API/Survey
== END 2025-04-10 16:47 | disposition home or self-care (01) ==
PROVIDERS: Emergency Provider Emergency Medicine; PCP Family Medicine
DX: G51.0 Bell's palsy (principal); F03.90 Unspecified dementia, unspecified severity, without behavioral disturbance, psychotic disturbance, mood disturbance, and anxiety
CPT/HCPCS: 36415; 70450; 71045; 80053; 80305; 81003; 82550; 82962; 84484; 85025; 85610; 85730; 93005; 99284

== ENCOUNTER 2025-04-12 15:09 | Emergency (ER) | payer MEDICARE, OTHER, SELFPAY ==
[2024-12-24 12:02] VITALS: BMI 26.5
[2025-04-12] VITALS (8 sets, daily range): BP systolic 135–159; BP diastolic 70–80; PULSE 63–71; RESP 16; TEMP 36.4; O2SAT 90–100; BMI 24.2
--- NOTE | 2025-04-12 16:41 | ED.RECABL ---
HPI - Recheck/Abnormal Lab/Rx General Chief Complaint: Recheck/Abnormal Lab/Rx Stated Complaint: weakness, sleepiness, low heart rate sent by [facility] Time Seen by Provider: 04/12/25 15:46 Source: patient and other Mode of arrival: Wheelchair Limitations: no limitations History of Present Illness HPI narrative: 75-year-old female with dementia patient has been decreased since noon patient was started on her home Seroquel around 1:00 a.m. this afternoon and states she might have had a syncopal episode in the car yesterday. Patient was seen here on 04/10/2025 for suspected Ambrocio's palsy was started on steroids and valacyclovir but family also asked to start medication for he was given a prescription for Seroquel which she had had in the past but has been off for some time. Patient's family noted left eye seemed to be little bit more swollen and irritated, they state it seems much better at this point. Has been states had 1st dose of Seroquel and seemed to feel like symptoms of decreased energy sleepiness started about 30 minutes after the dose was given. After discussion family had thought her Ambrocio's palsy was on the right side but discussed fact she has a left she was not able to fully close her left eye at times and has clear facial droop on her left side. We discussed there can be irritation. They do have some on open erythromycin ophthalmic ointment that they can use some discussed using tape or an eye patch particularly at nighttime to help protect her eye. Patient herself has no complaints. Caregiver/friend at bedside noted that she had an episode where they thought she passed out for about 5 seconds that her hands have been called and she has been less active. Has been who is also at bedside states that she was maybe had some mild changes but feels pretty comfortable with her returning home without further workup. She has not appointment tomorrow with her physician Dr. Ambrosio. She also had intake today with [facility]. We also reviewed likely side effects from her medications. Related Data Home Medications Medication Instructions Recorded Confirmed multivitamin 1 tab PO DAILY 10/07/18 12/24/24 levetiracetam 500 mg tablet mg PO 12/24/24 12/24/24 memantine 10 mg tablet 10 mg PO BID 12/24/24 12/24/24 quetiapine 25 mg tablet mg PO 12/24/24 12/24/24 rivastigmine 9.5 mg/24 hour topical 12/24/24 12/24/24 transdermal patch Previous Rx's Medication Instructions Recorded amoxicillin 875 mg-potassium 1 tab PO BID #14 tabs 12/24/24 clavulanate 125 mg tablet prednisone 10 mg tablets in a dose See Rx Instructions PO .COMPLEX 04/10/25 pack #45 ea quetiapine 25 mg tablet (Seroquel) 25 mg PO BEDTIME #5 tabs 04/10/25 valacyclovir 1 gram tablet 1,000 mg PO Q8H 7 days #21 tabs 04/10/25 (Valtrex) Allergies Allergy/AdvReac Type Severity Reaction Status Date / Time codeine [CODEINE] Allergy Unknown Nausea Verified 04/12/25 15:21 Review of Systems Review of Systems ROS Unobtainable: All systems reviewed & are unremarkable except as noted in HPI and below Patient History Medical History GERD (gastroesophageal reflux disease) Surgical History History of endometrial ablation Social History household members: spouse alcohol intake: current alcohol intake frequency: a few times a week Exam Narrative Exam Narrative: GEN: well nourished, well appearing female, alert and oriented x 3, patient appears to be in mild distress. HEENT: Atraumatic, pupils are equal round reactive to light, extraocular movements are intact, patient has difficulty closing her left eyelid, decreased movement of the left forehead as well as droop of the left mouth, this is consistent with prior exam when I saw her on the . There was no injection or drainage of the eye. Nares are clear, TMs are clear with no fluid, there is no conjunctival pallor. Throat is clear without any exudates, erythema, tonsillar enlargement or uvular deviation HEART: Regular rate and rhythm without murmur, clicks, rubs. pulses are equal in upper and lower extremities LUNGS:Lungs clear to auscultation, no wheezes, rales, crackles, chest moves symmetrically ABD:bowel sounds normal, soft, non-tender, no guarding, rebound, rigidity, no masses noted, no hepatosplenomegaly MSCL: Non-tender, no muscle atrophy, muscles strength 5/5 upper and lower extremities, full range of motion, normal gait NEURO:CN 2-12 intact, sensation normal. Initial Vital Signs Initial Vital Signs: Vital Signs Pulse Oximetry 97 04/12/25 15:14 Course Vital Signs Vital signs: Vital Signs - 8 hr 04/12/25 15:14 04/12/25 15:16 04/12/25 15:16 Temperature Pulse Rate 68 Respiratory Rate Blood Pressure 159/80 H Pulse Oximetry 97 98 Oxygen Delivery Method 04/12/25 15:21 04/12/25 16:46 04/12/25 17:00 Temperature 97.5 F L Pulse Rate 71 63 Respiratory Rate 16 Blood Pressure 159/80 H Pulse Oximetry 100 97 96 Oxygen Delivery Method Room Air 04/12/25 17:04 04/12/25 17:05 04/12/25 17:19 Temperature Pulse Rate Respiratory Rate 16 Blood Pressure 135/70 Pulse Oximetry 90 L Oxygen Delivery Method MDM - Recheck/Abnormal Lab/Rx MDM Narrative Medical decision making narrative: 75-year-old female with a what appears to be Ambrocio's palsy has not had any other new changes to her facial droop or extremities. Has been noted in the left eye seemed a little bit more swollen and irritated but after discussion they state that is seems to have gone away they have not been using any eyedrops do have some erythromycin ointment they can place to help protect it and we discussed she was not able to fully close it can use an eye patch or similar. Patient's caregiver had some additional concerns. These were addressed. Patient's has been does not feel that we need additional workup at this time. He notes patient has follow up tomorrow with primary care. He also notes that is some of her symptoms today started shortly after receiving her 1st dose of Seroquel. He feels comfortable with her returning home. We did not discuss if they can crush valacyclovir, I spoke with our pharmacist who notes that it can be crushed. We did discuss if they like to repeat labs or further workup but patient's has been defers until follow up tomorrow. Patient's sons her OS at bedside as well. They did ask about Seroquel we discussed there are risks with this medication, there are alternatives but all of them have some risks. Has been notes that he asked at [facility] in the they do often use this medication there as well. All questions answered. Discharge Plan Departure Patient Disposition: Home Clinical Impression: Ambrocio's palsy Activity Restrictions/Additional Instructions: Follow up with your physician tomorrow. You can use erythromycin ointment to the affected/left eye 3 times daily. You can use moisturizing saline drops instead if you prefer. I would recommend either taping or 90 patch overnight or for periods of time to help protect the eye itself as it can get dried out. I did talk with the pharmacist, you can crush valacyclovir. Please return if you have any other new or concerning changes, if the eye seems to be come painful, red or have other concerns, there was any other new weakness or movement changes, sudden changes to mentation, vomiting or if you have any other concerns. Prescriptions: No Action rivastigmine 9.5 mg/24 hour patch 24 hour topical memantine 10 mg tablet 10 mg PO BID levetiracetam 500 mg tablet PO Patient Comments: Take 1/2 tablets (250 mg) by mouth 2 (two) times a day. quetiapine 25 mg tablet PO amoxicillin-pot clavulanate 875-125 mg tablet 1 tab PO BID Qty: 14 0RF multivitamin Tablet 1 tab PO DAILY quetiapine [Seroquel] 25 mg tablet 25 mg PO BEDTIME Qty: 5 0RF prednisone 10 mg tablets,dose pack See Rx Instructions .ROUTE .COMPLEX Qty: 45 0RF Rx Instructions: 60 mg p.o. daily x5 days, then 50 mg p.o. x1 day, then 40 mg p.o. x1 day, then 30 mg p.o. x1 day, then 20 mg p.o. x1 day then 10 mg p.o. x1 day valacyclovir [Valtrex] 1 gram tablet 1,000 mg PO Q8H 7 Days Qty: 21 0RF Referrals: Phuong Ambrosio MD [Primary Care Provider] - Stand Alone Forms: Patient Portal/API/Survey
== END 2025-04-12 17:21 | disposition home or self-care (01) ==
PROVIDERS: Emergency Provider Emergency Medicine; PCP Family Medicine
DX: G51.0 Bell's palsy (principal)
CPT/HCPCS: 99281

== ENCOUNTER 2025-06-18 19:01 | Emergency (ER) | payer MEDICARE, OTHER, SELFPAY ==
[2024-12-24 12:02] VITALS: BMI 26.5
[2025-06-18] VITALS (11 sets, daily range): BP systolic 116–136; BP diastolic 57–83; PULSE 63–78; RESP 15–21; TEMP 36.6; O2SAT 94–97
--- NOTE | 2025-06-18 19:35 | DI.RAD.S_ITS ---
PROCEDURE: XR CHEST 1V INDICATIONS: chest pain TECHNIQUE: One view of the chest was acquired. COMPARISON: [facility], CR, XR CHEST 2V, 11/08/2019, 15:16. [facility], CR, XR CHEST 1V, 06/01/2023, 8:37. [facility], CR, XR CHEST 1V, 04/10/2025, 14:33. FINDINGS: Surgical changes and devices: None. Lungs and pleura: Lungs are clear. No pleural effusions or pneumothorax. Mediastinum: Mediastinal contours appear normal. Heart size is normal. Bones and chest wall: No suspicious bony lesions. Age-appropriate bony degenerative changes are seen. Overlying soft tissues appear unremarkable. IMPRESSION: Portable chest within normal limits for age. Dictated by: Ren Simmons M.D. on 06/18/2025 at 19:09 Approved by: Ren Simmons M.D. on 06/18/2025 at 19:10
--- NOTE | 2025-06-18 19:36 | ED_ITS ---
HPI - General Adult General Chief complaint: Altered Mental Status Stated complaint: agitated Time Seen by Provider: 06/18/25 19:34 History of Present Illness HPI narrative: 75-year-old female resident of [facility] care unit, fairly new to that facility, has had agitation that seemed to be worse on Seroquel, a few days ago started on trazodone at 25 mg twice daily low dose, yet to be titrated up further. Possible urinary tract infection, started on oral Macrobid 2 days ago, urine culture pending. Became quite agitated today at that facility. Required intramuscular injection of ketamine to help extract the patient safely with EMS transport here for further evaluation. Patient might need [facility] or other kind of care facility. Related Data Home Medications ?Medication ?Instructions ?Recorded ?Confirmed multivitamin 1 tab PO DAILY 10/07/1811/26 levetiracetam 500 mg tablet mg PO 12/24/24 12/24/24 memantine 10 mg tablet 10 mg PO BID 12/24/24 quetiapine 25 mg tablet mg PO 12/24/24 12/24/24 rivastigmine 9.5 mg/24 hour topical 12/24/24 12/24/24 transdermal patch Previous Rx's ?Medication ?Instructions ?Recorded amoxicillin 875 mg-potassium 1 tab PO BID #14 tabs clavulanate 125 mg tablet prednisone 10 mg tablets in a dose See Rx Instructions PO .COMPLEX 04/10/25 pack #45 ea quetiapine 25 mg tablet (Seroquel) 25 mg PO BEDTIME #5 tabs 04/10/25 Allergies Allergy/AdvReac Type Severity Reaction Status Date / Time codeine (CODEINE) Allergy Unknown Nausea Verified 06/18/25 19:14 Patient History Medical History GERD (gastroesophageal reflux disease) Surgical History History of endometrial ablation Social History household members: spouse alcohol intake: current alcohol intake frequency: a few times a week Exam Narrative Exam Narrative: GENERAL: Well-developed patient, in mild distress. HEAD: Atraumatic. Normocephalic. EYES: Pupils equal round and reactive. Extraocular motions intact. No scleral icterus. No injection or drainage. ENT: Nose without bleeding, purulent drainage. Throat without erythema, tonsillar hypertrophy or exudate. Airway patent. NECK: Trachea midline. Non tender CARDIOVASCULAR: Regular rate and rhythm without murmurs, gallops, or rubs. RESPIRATORY: Clear to auscultation. Breath sounds equal bilaterally. No wheezes, rales, or rhonchi. GASTROINTESTINAL: Abdomen soft, non-tender, nondistended. EXTREMITIES: No edema or joint tenderness. BACK: Nontender without deformity or crepitance. No flank tenderness. NEURO: AOx3. Motor functions grossly nonfocal. SKIN: No rash or erythema of visible areas Initial Vital Signs Initial Vital Signs: Vital Signs Temperature 97.8 F 06/18/25 19:14 Pulse Rate 78 06/18/25 19:14 Respiratory Rate 18 06/18/25 19:14 Blood Pressure 130/83 06/18/25 19:14 Pulse Oximetry 94 06/18/25 19:14 Oxygen Delivery Method Room Air 06/18/25 19:14 Course Orders Ordered: ED Orders 06/18/25 19:30 Ictotest Urine Stat Urinalysis and Microscopic Stat 06/18/25 19:35 XR chest 1V Stat EKG-12 Lead Stat 06/18/25 19:45 Complete Blood Count AUTO DIFF Stat Comprehensive Metabolic Panel Stat Lactate (Lactic Acid) Stat Lipase Stat Troponin & CK Cardiac Panel Stat Vital Signs Vital signs: Vital Signs - 8 hr 06/18/25 23:00 06/18/25 23:00 06/18/25 23:30 Pulse Rate 68 68 Respiratory Rate 21 15 Blood Pressure 136/63 Pulse Oximetry 96 97 Oxygen Delivery Method 06/19/25 00:00 06/19/25 00:00 Pulse Rate 68 Respiratory Rate 18 Blood Pressure 114/59 L Pulse Oximetry 97 Oxygen Delivery Method Room Air Medical Decision Making Lab Data Lab results reviewed: Yes I reviewed the patient's lab results. Lab results narrative: White blood cell count 6700, hemoglobin 11.7, platelets 200 for which she 1000. Glucose 131. Normal renal function. Normal serum CO2, normal electrolytes. Liver functions unremarkable. Troponin negative/unmeasurable. Urinalysis negative. 06/18/25 19:45 06/18/25 19:45 Labs: Lab Results 06/18/25 06/18/25 Range/Units 19:30 19:45 WBC 6.7 (4.5-11.0) X10^3/uL RBC 3.75 L (4.0-5.2) X10^6/uL Hgb 11.7 L (12.0-16.0) g/dL Hct 34.5 L (36-46) % MCV 92.1 (80-100) fL MCH 31.2 (26-34) PG MCHC 33.9 (30-36) % RDW 13.3 (11.6-14.8) % Plt Count 242 (150-400) X10^3/uL Neut % (Auto) 65.8 (50-75) % Lymph % (Auto) 23.6 L (25-40) % Irwin % (Auto) 7.6 (3-14) % Eos % (Auto) 2.4 (2-4) % Baso % (Auto) 0.6 (0-2) % Neut # (Auto) 4400 (1220-2089) /uL Lymph # (Auto) 1600 (3294-1057) /uL Irwin # (Auto) 500 (0-900) /uL Eos # (Auto) 200 (0-450) /uL Baso # (Auto) 0 (0-100) /uL Sodium 139 (137-145) mmol/L Potassium 3.6 (3.4-5.1) mmol/L Chloride 108 H (98-107) mmol/L Carbon Dioxide 24 (22-32) mmol/L BUN 15 (7-17) mg/dL Creatinine 0.67 (0.52-1.04) mg/dL Estimated GFR > 60 (>60) mL/min BUN/Creatinine Ratio 22.4 H (6-22) Glucose 131 H (70-99) mg/dL Lactate 1.0 (0.7-2.1) mmol/L Calcium 9.0 (8.4-10.2) mg/dL Total Bilirubin 0.8 (0.2-1.3) mg/dL AST 35 (14-36) IU/L ALT 24 (<35) IU/L Alkaline Phosphatase 71 (38-126) U/L Total Creatine Kinase 224 H (30-135) U/L Troponin I < 0.012 (0.01-0.034) ng/mL Total Protein 6.7 (6.3-8.2) g/dL Albumin 4.2 (3.5-5.0) g/dL Globulin 2.5 (1.7-4.1) g/dL Albumin/Globulin Ratio 1.7 (1.0-2.8) Lipase 30 (23-300) U/L Urine Color Yellow Urine Appearance Clear Urine pH 5.5 (4.5-8.0) Ur Specific [place] 1.025 (1.000-1.035) Urine Protein Negative (Negative) Urine Glucose (UA) Negative (Negative) g/dL Urine Ketones 2+ H (NEGATIVE) Urine Occult Blood Negative (Negative) Urine Nitrate Negative (Negative) Urine Bilirubin 1+ H (NEGATIVE) Ur Bilirubin Confirm Negative (Negative) Urine Urobilinogen 1.0 (0.2) E.U./dL Ur Leukocyte Esterase Negative (NEGATIVE) Urine RBC None seen (0-5/HPF) Urine WBC None seen (0-5/HPF) Ur Squamous Epith Cells None seen (0-5/HPF) Ur Renal Epithelial Cell 1-5/hpf H (0-1/HPF) Urine Bacteria None seen (None) Hyaline Casts 0-1/lpf (None) Urine Mucus 1+ H (Negative) Vol Urine Centrifuged 10ml (spun) ECG Data Attestation: I personally reviewed and interpreted this ECG as follows: Interpretation: 2037, normal sinus rhythm, rate 66, incomplete right bundle branch block pattern. KS 148, QRS 102, QTC 429. [facility] Narrative Medical decision making narrative: 75-year-old female had significant agitation at [facility] memory care unit, she had had agitation with Seroquel, most recently started trazodone. No known trauma or injury. EMS had to extract the patient with aid of intramuscular ketamine dose, had sedation during transport with improving mental status on arrived here. No longer agitated here. Initial lab data: White blood cell count 6700, hemoglobin 11.7, platelets 200 for which she 1000. Glucose 131. Normal renal function. Normal serum CO2, normal electrolytes. Liver functions unremarkable. Troponin negative/unmeasurable. Urinalysis negative. Mental status further improved 2344, patient seems to be recovered, not agitated, cooperative. We will reach out to [facility] to see if they can accept the patient back. Patient seems to be cooperative. Family members at bedside we would like her to return to [facility]. Nursing spoke to [facility], and they are willing to take patient back. Transport by POV family back to [facility] for now. Further pharmacology interventions to be decided by care providers in that setting. Discharged home with family. Discharge Plan Departure Patient Disposition: Home Clinical Impression: Agitation Activity Restrictions/Additional Instructions: Agitation today at [facility], requiring EMS transfer and intramuscular dose of ketamine, recovery while observed for a number of hours in the emergency department. Screening labs unremarkable. Urinalysis did not show any obvious infection at this time. Improved mental status without agitation in the emergency department. Query [facility] to see if they can take patient back at this time. Previous reported intolerance to Seroquel. It is possible that perhaps the new trazodone is also not being tolerated, though it might be that a therapeutic doses not yet been reached to control agitation. Other classes of agitation control medications are also possible. Discuss further with your prescriber primary care provider. Recent empiric treatment with oral antibiotic for possible urine infection. Urinalysis did not look obviously infected now. It still might be prudent however to continue that course of antibiotic that was empirically started. Nursing was able to communicate with [facility] staff, who are accepting patient back for transfer at this time. Private vehicle transportation by family escort back to [facility]. Prescriptions: No Action rivastigmine 9.5 mg/24 hour patch 24 hour topical memantine 10 mg tablet 10 mg PO BID levetiracetam 500 mg tablet PO Patient Comments: Take 1/2 tablets (250 mg) by mouth 2 (two) times a day. quetiapine 25 mg tablet PO amoxicillin-pot clavulanate 875-125 mg tablet 1 tab PO BID Qty: 14 0RF multivitamin Tablet 1 tab PO DAILY quetiapine [Seroquel] 25 mg tablet 25 mg PO BEDTIME Qty: 5 0RF prednisone 10 mg tablets,dose pack See Rx Instructions .ROUTE .COMPLEX Qty: 45 0RF Rx Instructions: 60 mg p.o. daily x5 days, then 50 mg p.o. x1 day, then 40 mg p.o. x1 day, then 30 mg p.o. x1 day, then 20 mg p.o. x1 day then 10 mg p.o. x1 day Referrals: Phuong Ambrosio MD [Primary Care Provider, Family Practice] Stand Alone Forms: Patient Portal/API
[2025-06-18 19:37] LABS: Appearance Urine UA CLEAR; Bilirubin Urine UA 1+ (NEGATIVE); Color Urine UA YELLOW; Glucose Urine UA NEGATIVE (Negative); Ketones Urine UA 2+ (NEGATIVE); Leukocyte Esterase Urine UA NEGATIVE (NEGATIVE); Nitrite Urine UA NEGATIVE (Negative); Occult Blood Urine UA NEGATIVE (Negative); Protein Urine UA NEGATIVE (Negative); Specific Gravity Urine UA 1.025 (1.000-1.035); Urobilinogen Urine UA 1.0 E.U./dL (0.2)
[2025-06-18 19:39] LABS: pH Urine UA 5.5 (4.5-8.0)
[2025-06-18 19:48] LABS: Ictotest Urine Negative (Negative)
[2025-06-18 19:59] LABS: Add Manual Diff / Slide Review NO; Hematocrit 34.5 % (36-46); Hemoglobin 11.7 g/dL (12.0-16.0); Lymphocytes Absolute Auto 1600 /uL (1100-4500); Mean Corpuscular HGB Conc 33.9 % (30-36); Mean Corpuscular Hemoglobin 31.2 PG (26-34); Mean Corpuscular Volume 92.1 fL (80-100); Platelet Count 242 X10^3/uL (150-400)
[2025-06-18 20:09] LABS: Alanine Aminotransferase 24 IU/L (<35); Albumin 4.2 g/dL (3.5-5.0); Albumin Globulin Ratio 1.7 (1.0-2.8); Alkaline Phosphatase 71 U/L (38-126); Blood Urea Nitrogen 15 mg/dL (7-17); Calcium 9.0 mg/dL (8.4-10.2); Carbon Dioxide 24 mmol/L (22-32); Chloride 108 mmol/L (98-107); Creatine Kinase 224 U/L (30-135); Estimated Glomerular Filt Rate > 60 mL/min (>60); Globulin 2.5 g/dL (1.7-4.1); Glucose 131 mg/dL (70-99); HEMOLYSIS 22 (0-50); Lactate (Lactic Acid) 1.0 mmol/L (0.7-2.1); Lipase 30 U/L (23-300); Potassium 3.6 mmol/L (3.4-5.1); Sodium 139 mmol/L (137-145); Total Protein 6.7 g/dL (6.3-8.2)
[2025-06-18 20:20] LABS: Troponin I < 0.012 ng/mL (0.01-0.034)
--- NOTE | 2025-06-18 20:38 | EKG_ITS ---
[place] [address] [place] [id number] Test Date: 2025-06-18 Pat Name: Mary Martini Department: [facility] Room: Gender: Female [employer] Re[employer]: CHEPE : 1950 Requested By: Order Number: [id number] Reading MD: Seymour Arce Measurements Intervals [place] Rate: 66 P: 65 GA: 148 QRS: 2 QRSD: 102 T: 66 QT: 410 QTc: 429 Interpretive Statements Normal sinus rhythm Incomplete right bundle branch block Electronically Signed On 07-01-2025 8:17:58 PDT by Seymour Arce
[2025-06-19] VITALS: BP 114/59; PULSE 68; RESP 18; O2SAT 97
--- NOTE | 2025-06-19 00:26 | PC.NURSE ---
Pt ambulatory to bathroom w/stand by assist. Pt is back to baseline and has been calm, cooperative, able to follow commands and redirectable through this ED visit. [facility] called to discuss pt's DC back to facility. [facility] on phone agreeable to receive pt. Dr. Rojas notified.
== END 2025-06-19 00:54 | disposition home or self-care (01) ==
PROVIDERS: Emergency Provider Emergency Medicine; PCP Family Medicine
DX: R45.1 Restlessness and agitation (principal); I45.10 Unspecified right bundle-branch block
CPT/HCPCS: 36415; 71045; 80053; 81001; 82550; 83605; 83690; 84484; 85025; 93005; 99283; 99284

== ENCOUNTER 2025-06-25 16:31 | Inpatient (IN) | payer MEDICARE, OTHER, SELFPAY ==
[2024-12-24 12:02] VITALS: BMI 26.5
[2025-06-25 17:03] VITALS: BP 123/58; PULSE 65; RESP 14; TEMP 36.4; O2SAT 95
--- NOTE | 2025-06-25 17:31 | PC.NURSE ---
family reports patient is at her baseline at this time.
--- NOTE | 2025-06-25 18:31 | ED.PSYCH ---
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 0500, [facility] says patient has been refused at [facility] to take over for further bed search later this morning. 0700, social services specialist consult pending later today for disposition planning. Signed out to oncoming ED shift physician Dr Perez. 06/26/25, [id number]. Signed back out from Dr Perez. Interval history urine culture showed no growth. IV ceftriaxone given prior, no further antibiotics indicated for urinary coverage at this time. Still awaiting bed placement. Resumed care. 06/27/25, 0700, [facility]ful overnight[facility]. Vital signs nurse triage note medication list previous ER visits and all imaging studies reviewed. Case discussed with Dr. Thierry hudson who is the consulting psychiatrist case to increase citalopram from 10 mg to 20 mg, Seroquel 50mg, 50mg, and 100mg qhs dosing t.i.d. dosing. He will put the consult note in the chart. Case discussed with Dr. Ambrosio who has graciously accepted the patient for inpatient admission. Discharge Plan Departure Patient Disposition: Admitted as Observation Clinical Impression: Agitation Admit Date/Time: 06/27/25 17:43 Admit Provider: Phuong Ambrosio
--- NOTE | 2025-06-25 19:23 | CM.SWNOTE ---
ED PROBATE CLERK Assessment Note: PROBATE CLERK - Hoop Puncher Assessment PROBATE CLERK/Hoop Puncher Assessment Time Spent with Patient Start date 06/25/25 Visit Start Time 17:30 End date 06/25/25 Visit End Time 18:15 Total time Care 45 minutes total Management spent on patient visit-in minutes Mental Health Screening Include Onset, Duration, Intensity Presenting Problem Patient presents to the ED via EMS due to concerns of agitation and combativeness towards others at her Memory Care Facility. Patient has a hx of Dementia. Precipitating Event( Per pt family, pt is a new resident at [facility] (less than a month) and they have been working with the facility's Provider to adjust pt's medications to assist with behaviors. Per family, pt is mainly calm and redirectable but has short episodes of agitation due to paranoia. Before entering the facility, pt was known to express paranoia that someone is attempting to kill her, her family members or her cat. It was reported that she was often found wandering due to the paranoia. Per [facility] GUEST ATTENDANT, patient has short episodes of agitation and combativeness towards other residents. Today, patient was reported to have their arms around another resident, no report to this PROBATE CLERK about pt assaulting others other than grabbing. Per GUEST ATTENDANT, pt is able to take scheduled seroquel but is not cooperative with PRN medications. Patient Strengths Patient is mainly calm and redirectable during assessment. Patient family ( and two sons) very involved and supportive of pt care/safety. Current Behavioral None reported. Health Provider(s) Include Facility, Provider, Ph. # Psych. Hx Mental Dementia. All medications are managed by Facility Health and Chemical Medical Provider, MAINOR Alves. (ph# [phone], fax# [phone]). Family Hx of None reported. Behavioral Abuse Psychiatric None reported. Hospitalizations ( date(s)/location) Psychosocial Patient is a 75yo female, resident of [place]. information & Patient recently moved into a [facility] called [facility] within the last month. Patient is supported by her family members: - Lucian, two sons - Marquis. School/Work Patient is retired. Legal Concerns Legal Matters - None reported. Outstanding Issues Mental Status Orientation (Person/ AOx1 Place/Time) Affect (Congruent Congruent with mood, full range. with Mood?) Thought Content - Patient family states pt has a history of paranoia and Specify/Describe delusion that someone is trying to kill her or hurt Obsessions, her sons or her cat. No identified auditory or visual Delusions, hallucinations. Hallucinations Thought Processes ( Tangential Logical-Coherent- Goal Directed- Detailed-Tangential- Circumstantial- Logical-Disorganized -Thought Blocking) Speech (Normal-Slow- Identified aphasia. Dvrnuqm-Aukkz-Wost- Loud-Pressured) Motor (Normal- Normal Jlgmlhgnr-Emrx-Bzryi ) Insight (Good-Fair- Poor/limited Poor/Limited) Judgement (Good-Fair Poor/limited -Poor/Limited) Impulse Control ( Impaired Adequate-Impaired) Memory (Immediate- Impaired Recent-Remote, Impaired-Intact) Concentration ( Impaired Intact-Impaired) Attention (Intact- Impaired Impaired) Behavior ( Inappropriate Appropriate- Inappropriate) Additional Comment Patient is mainly calm and redirectable during assessment and while in ED. Risk Assessment Suicidal Ideation ( No Plan) Homicidal Ideation ( No Plan) Intervention Intervention Reviewed chart and discussed with ED Provider pt's medical status and discharge needs. ED PROBATE CLERK meets with patient. Patient family endorses pt has recently moved into memory care facility and they have been working with the facility's GUEST ATTENDANT to manage medications. Facility states pt has been having episodes of agitation and combativeness in which she was grappling with another resident. No reports of assault towards staff to this PROBATE CLERK. Facility GUEST ATTENDANT states the patient needs care above what [facility] can provide until she is able to stabilize on correct medication regiment and behaviors are managed. At this time, they are not accepting pt back to their facility until this is corrected. ED PROBATE CLERK and patient discuss goals of care with pt and family. Due to no safe discharge to facility, family not able to manage at the home safely as well. At this time, it is the opinion of this PROBATE CLERK that patient would benefit from inpatient geriatric psychiatric hospitalization for behaviors related to dementia/grave disability and risk of harm to others. Would benefit from medication and crisis management. PROBATE CLERK informs ED provider, Dr. Rojas, who indicates agreement. PROBATE CLERK informs TORRI Wang. Plan RA Plan Once patient is medically clear, ED staff will attempt to find inpatient [facility]/Geropsych placement for patient. Will need to dispatch DCR for [facility] placement at out [facility] geropsych facilities. NIRANJAN Dominguez
[2025-06-25 19:27] LABS: Add Manual Diff / Slide Review NO; Hematocrit 34.2 % (36-46); Hemoglobin 11.8 g/dL (12.0-16.0); Lymphocytes Absolute Auto 1900 /uL (1100-4500); Mean Corpuscular HGB Conc 34.5 % (30-36); Mean Corpuscular Hemoglobin 31.7 PG (26-34); Mean Corpuscular Volume 91.7 fL (80-100); Platelet Count 222 X10^3/uL (150-400)
[2025-06-25 19:39] LABS: Alanine Aminotransferase 21 IU/L (<35); Albumin 4.1 g/dL (3.5-5.0); Albumin Globulin Ratio 1.7 (1.0-2.8); Alkaline Phosphatase 80 U/L (38-126); Blood Urea Nitrogen 20 mg/dL (7-17); Calcium 8.6 mg/dL (8.4-10.2); Carbon Dioxide 23 mmol/L (22-32); Chloride 108 mmol/L (98-107); Estimated Glomerular Filt Rate > 60 mL/min (>60); Globulin 2.4 g/dL (1.7-4.1); Glucose 101 mg/dL (70-99); HEMOLYSIS < 15 (0-50); Potassium 4.0 mmol/L (3.4-5.1); Sodium 140 mmol/L (137-145); Total Protein 6.5 g/dL (6.3-8.2)
--- NOTE | 2025-06-25 20:23 | CM.SWNOTE ---
ED INDUSTRIAL SECURITY ANALYST Note: Per ED Provider, still pending COVID results but he is familiar with pt due to previous presentation. Dr. Rojas requested DCR dispatch for [facility] geropsych placement. ED INDUSTRIAL SECURITY ANALYST initiated bed search for inpatient geropsych bed. INDUSTRIAL SECURITY ANALYST calls [facility], INDUSTRIAL SECURITY ANALYST left a voice message with intake staff. INDUSTRIAL SECURITY ANALYST calls [facility], it was reported that there are beds available, INDUSTRIAL SECURITY ANALYST completed phone screening with Intake [facility]. Contact information: # [phone], fax#[phone]. INDUSTRIAL SECURITY ANALYST calls [facility] Crisis [facility], requested DCR dispatch and gave pt hx. INDUSTRIAL SECURITY ANALYST sent initial clinicals to DCR Fax, pending COVID and Utox. Notified of available bed at [facility]. INDUSTRIAL SECURITY ANALYST discussed above with pt family, who are in agreement wit [facility] geropsych placement plan. INDUSTRIAL SECURITY ANALYST discusssed above with Dr. Rojas who indicates agreement, also discussed with pt RN and PERCUSSION TUNER to assist with coordination of sending pending clincals to DCR when available. Plan: Pending acceptance at inpatient facility for geropsych treatment. ED staff coordinating disposition. NIRANJAN Dominguez
[2025-06-25 21:00] LABS: COVID19 -Nasal RAPID Negative (Negative)
[2025-06-25 23:32] LABS: Appearance Urine UA CLEAR; Bilirubin Urine UA NEGATIVE (NEGATIVE); Color Urine UA YELLOW; Glucose Urine UA NEGATIVE (Negative); Ketones Urine UA NEGATIVE (NEGATIVE); Leukocyte Esterase Urine UA 2+ (NEGATIVE); Nitrite Urine UA NEGATIVE (Negative); Occult Blood Urine UA NEGATIVE (Negative); Protein Urine UA NEGATIVE (Negative); Specific Gravity Urine UA 1.010 (1.000-1.035); Urobilinogen Urine UA 0.2 E.U./dL (0.2)
[2025-06-25 23:36] LABS: Ur Specific Gravity Normal (Normal)
[2025-06-25 23:37] LABS: UR Morphine/Opiate cutoff 300 Negative (Negative); Urine MDMA Negative (Negative); Urine Methamphetamines Negative (Negative); Urine Tetrahydrocannabinol Negative (Negative); Urine Tricyclic Antidepressant Negative (Negative); pH Urine UA 6.0 (4.5-8.0)
[2025-06-25 23:43] LABS: Culture Indicated Urine Specimen Cultured
--- NOTE | 2025-06-26 10:06 | PC.NURSE ---
IV ABX order cancelled per physician order. ABX ordered PO due to rodrigue-psych status. This RN spoke with about administration of PO ABX and stated it would be best to administer PO ABX with chocolate pudding. This RN placed PO ABX in chocolate pudding and gave to pt. Pt accepted a spoon full of pudding but then spit out oral ABX and got upset and stated that's not how we do it. then stated pt did not need ABX and stated she woulod not be taking the ABX. Administration of med now documented as not given in JAN. Charge Aware.
[2025-06-26] MEDS: MEMANTINE HCL 5 MG TABLET 10 MG PO (11:58)
[2025-06-26 13:30] VITALS: BP 120/60; PULSE 64; RESP 16; TEMP 36.6; O2SAT 97
--- NOTE | 2025-06-26 13:57 | CM.SWNOTE ---
Addendum entered by Stefanie Silver 06/26/25 17:46: MACHINE SILK SCREEN PRINTER calls [facility] regarding patient boarding in the ED awaiting geripsych placement and that there are no geripsych beds, MACHINE SILK SCREEN PRINTER states that there may be availability tomorrow and ED MACHINE SILK SCREEN PRINTER will dispatch DCR tomorrow regarding patient. NIRANJAN Crespo Addendum entered by Stefanie Silver 06/26/25 16:32: MACHINE SILK SCREEN PRINTER calls [facility], it is reported that they do not have a geripsych unit. NIRANJAN Crespo Original Note: ED MACHINE SILK SCREEN PRINTER Note MACHINE SILK SCREEN PRINTER reviews chart and identifies that patient was a [facility] walk away due to concern for no available geripsych facilities. Patient was evaluated by Bryn NICK last evening. MACHINE SILK SCREEN PRINTER calls [facility], it is reported that there are no [facility] beds today. MACHINE SILK SCREEN PRINTER calls [facility] it is reported that patient was declined due to report that patient would be inappropriate for their facility, as patient only has Dementia diagnosis. MACHINE SILK SCREEN PRINTER calls [facility], it is reported that they have no [facility] beds but they may have beds tomorrow. MACHINE SILK SCREEN PRINTER leaves with intake requesting return call. MACHINE SILK SCREEN PRINTER informs this to patient, patient's spouse and son. Patient's spouse presents with concern due to the process of waiting and boarding in the ED. Patient presents as delightfully confused but agitation increases if left alone. There is concern about patient being confined in the room. Patient's son endorses that he and his brother plan to support patient through this process. Family requested home meds for patient, MACHINE SILK SCREEN PRINTER relayed this to RN. Plan: re-dispatch DCR upon identified bed availability at [facility] or [facility], f/u with [facility] at 24 hour fernandez regarding patient boarding in ED in need of further DCR assessment. NIRANJAN Crespo
[2025-06-26] MEDS: QUETIAPINE 25 MG TABLET PO (18:57)
[2025-06-26] MEDS: QUETIAPINE 25 MG TABLET 50 MG PO (19:00)
--- NOTE | 2025-06-26 19:30 | PC.NURSE ---
Pt noted to be aggressive with son that is in room with her. Pt is yelling and banging on burger. PRN medicine given as ordered in pudding by son.
--- NOTE | 2025-06-26 23:14 | PC.NURSE ---
Pt resting quietly with eyes closed, resps even and not labored. No distress noted at this time. Recliner provided for son. Son refuses vital signs at this time.
--- NOTE | 2025-06-27 06:10 | PC.NURSE ---
Pt ambulatory to restroom with out difficulty with son. Son refuses vital signs at this time.
--- NOTE | 2025-06-27 07:25 | PC.NURSE ---
Pt slept all night, son in the room. Pt agitated and wandering this morning. Pt responds well to son's interactions. Son is kind, patient and kind towards patient.
--- NOTE | 2025-06-27 07:30 | PC.NURSE ---
Assumed care of pt at 0700.
--- NOTE | 2025-06-27 07:33 | PC.NURSE ---
Patient/family refusing vital signs. Pt is awake, talking with son and walking around the room laughing.
[2025-06-27] MEDS: MEMANTINE HCL 5 MG TABLET 10 MG PO ×2 (09:41→21:25)
[2025-06-27] MEDS: QUETIAPINE 25 MG TABLET PO (09:50)
[2025-06-27] MEDS: CITALOPRAM 10 MG TABLET PO (09:57)
--- NOTE | 2025-06-27 17:47 | PM.CN.IH.1 ---
History of Present Illness Consult details Date Patient Seen: 06/27/25 Time Patient Seen: 16:45 Chief complaint: Combative from [facility] Reason for consult: Recommendations for management of acute agitation Requesting provider: Piotr Shah Narrative: HISTORY OF PRESENT ILLNESS History was obtained from MAINOR Wright, the patient's family including her and son and also spoke to ED staff. This is the 1st ever psychiatric evaluation for this 75-year-old female with a history of dementia who was recently placed in [facility] about a month ago. She was seen on 06/18/2025 with agitation and at the time received Haldol by EMS in order to be transported. She appeared to be calm overnight has been on an oral antibiotic, Macrobid administered by [facility] had hospital social worker evaluation and then was accepted back to [facility]. The patient returned 2 days ago once again after similar presentation of becoming severely agitated to the point of possibly injuring other patients. She reportedly had difficulty with fairly severe sundowning and has been resistant to various medication interventions. Here in the emergency department the patient has exhibited some of the same behaviors becoming fairly severely agitated late in the afternoon into the evening and has required various medication to address agitation in the ED. At [facility], the patient had initially been given quetiapine and lorazepam which seemed to work at relatively low doses fairly early on but then seemed to be worse sometimes after she would awaken from being asleep after being given quetiapine. Most recently, she will be given trazodone 50 mg in the morning and 100 mg at night. She was also given lorazepam 1 mg p.o. q.6 hours as needed but has been often difficult to administer as the patient is so agitated she can not take p.o. meds. [facility] has tried various combinations of quetiapine, trazodone, and most recently put her on citalopram at 10 mg in order to attempt to help calm her. PAST PSYCHIATRIC HISTORY Diagnoses: No prior psychiatric history Inpatient: Not applicable Outpatient: Not applicable Suicide Attempts: Not applicable PREVIOUS PSYCHIATRIC MEDICATION TRIALS None CURRENT PSYCHOTROPIC MEDICATIONS Citalopram 10 mg p.o. q.day Lorazepam 1 mg p.o. b.i.d. as needed severe agitation Quetiapine 25 mg p.o. b.i.d. as needed severe agitation Quetiapine 50 mg p.o. q.h.s. Meds Home Medications and Allergies Home Medications ?Medication ?Instructions ?Recorded ?Confirmed ?Type multivitamin 1 tab PO DAILY 10/07/18 06/26/25 History amoxicillin 875 mg-potassium 1 tab PO BID #14 tabs 12/24/24 06/26/25 Rx clavulanate 125 mg tablet levetiracetam 500 mg tablet 500 mg PO Q12H 12/24/24 06/26/25 History memantine 10 mg tablet 10 mg PO BID 12/24/24 06/26/25 History quetiapine 25 mg tablet 25 mg PO PRN 12/24/24 06/26/25 History rivastigmine 9.5 mg/24 hour topical 12/24/24 12/24/24 History transdermal patch prednisone 10 mg tablets in a dose See Rx Instructions PO .COMPLEX 04/10/25 06/26/25 Rx pack #45 ea quetiapine 25 mg tablet (Seroquel) 50 mg PO BEDTIME 06/26/25 06/26/25 History citalopram 10 mg tablet 10 mg PO DAILY 06/27/25 06/27/25 History Allergies Allergy/AdvReac Type Severity Reaction Status Date / Time codeine (CODEINE) Allergy Unknown Nausea Verified 06/25/25 17:03 Review of Systems Review of Systems ROS: Yes unobtainable due to mental condition Exam Vital Signs (past 8 hours): Oxygen Delivery Method Room Air Narrative Exam Narrative: MENTAL STATUS EXAM Appearance: The patient is slender, petite, female who appears stated age. Grooming: neatly dressed in casual clothing and adequately groomed. Eye Contact: Poor Behavior: Mildly agitated and seeing hugging various family members alternating with fidgeting with blanket, safety socks, and picking it various items in the environment such as her 's shoes and clothing. Motor Movement: [No abnormal motor movements noted.] Gait: Appeared to be intact Speech: Unimpaired Mood: Unable to state Affect: Somewhat irritable, mildly agitated. Congruent with apparent thought content. Thought Process: Not tested Thought Content: Not tested Attention: Not attentive to interview with her family members regarding herself. Orientation: Oriented to name and self only not to person place or time. Memory: Not tested, but very poor by history. Insight: None Judgment: Poor Impulse Control: Poor Objective Labs 06/25/25 18:15 06/25/25 18:15 [facility] Medical History GERD (gastroesophageal reflux disease) Surgical History History of endometrial ablation Social History household members: spouse Tobacco & Substance Use alcohol intake: current Assessment & Plan Assessment & Plan narrative: ASSESSMENT/MEDICAL DECISION MAKING This is a 75-year-old female with a recent extensive history of dementia who was no longer able to be managed at home and recently admitted about 4 weeks ago to [facility]. She initially seemed to be settling in okay but then began to become agitated and at times violent placing staff members and in particular vulnerable patients at risk with her behavior. Attempts by [facility] staff to redirect with behavior 1 successful resulting in use of medications which have also been unsuccessful. After two ED visits within a week, the memory care center refused to take her back until improved management of agitation was initiated. RECOMMENDATIONS: 1. Since patient has been in the ED for 48 hours I understand that she is to be admitted per Dr. Ambrosio her PCP. I will continue to consult with her while patient is inpatient. 2. Increase citalopram to 20 mg p.o. q.a.m. 3. Increase quetiapine to 50 mg p.o. b.i.d. and 50 mg p.o. q.h.s. 4. May continue lorazepam 1 mg p.o. b.i.d. as needed for very severe agitation only. Time-Based Coding :: Eighty total minutes spent with patient and on the chart (including review of chart, obtaining history, exam, reviewing outside data, placing orders, documenting exam and treatment plan, and counseling patient) on 06/27/2025. PROFEE Charge Codes Inpatient or Observation consultation: [id number]
[2025-06-27 18:18] VITALS: PULSE 65; RESP 16; O2SAT 97
--- NOTE | 2025-06-27 18:19 | PC.NURSE ---
Pt does not respond well to outside interactions, family always at bedside to assist ED staff. Able to collect VS for HR and O2. Pt declines BP, the BP cuff scares her and triggers her kelly. clerk to justice and physician aware. Pt is alert, watching a movie with her son and resting quietly.
--- NOTE | 2025-06-27 19:05 | CM.DANOTE ---
ED HEAD OF MARKETING DCP Assessment Note: Pt is a 75yo female, resident of [place], is admitted for agitation, behaviors related to dementia. Pt admitted after 48 hours in the Emergency Room, no geripsych placement found. Pt is a resident at [facility] for less than 1 month. Pt's Primary Care Provider is currently MAINOR Wright and Dr. Phuong Ambrosio, insurance is Medicare and [employer]. Reviewed chart and discussed with multidisciplinary team pt's medical status, ED HEAD OF MARKETING team has been attempting geriatric psych placement to assist for crisis and medication management before returning to memory care facility. Designated Crisis Responder attempted detainment for treatment but was not able to complete due to no available beds. Bed search on 06/27: [facility] - it is reported there is 1 bed available but they were already screening 2 patients, requested packet to be sent for review. HEAD OF MARKETING sent packet via [email or web address]. [facility] - it is reported they accept Geriatric Psych pts but decline this patient as they do not identify an acute need for admission. [facility] - Spoke with [place], it is reported there are still no beds available, sent packet via secure email for initial review. [facility] - declined pt on 06/26 due to no acute admission diagnosis. Due to no available bed geripsych placement and facility not accepting until medications have been managed by psych provider, there is no identified safe discharge plan. [facility] policy. ED HEAD OF MARKETING coordinated with ED Provider, Dr. Shah, with consultation with Psych Provider, Dr. Irby, who graciously consulted re: pt psychiatric medications. ED HEAD OF MARKETING calls pt provider at [facility], MAINOR Wright - discusses that pt's acceptance back to the facility will be dependant on Education Assistant and Framing Consultant. States she will be appreciative of a psych consult with Dr. Irby. CONTACT INFO: # [phone], fax# [phone] ED HEAD OF MARKETING calls Kailey Monroy, Education Assistant at [facility]. It is reported that pt will have to be reviewed by Framing Consultant before acceptance. Requests pt family will agree with pt needing a 1:1 sitter during waking hours ([phone] initially) from an outside agency when medically stable on new medications. They hope this will titrate down as pt adjusts. Education Assistant will also discuss with family recommendations moving forward (AFH vs. smaller memory care unit) for future. [facility] requests referral to [facility] if not from a private caregiver of family choice. HEAD OF MARKETING sent most recent clinicals to Education Assistant via secure email. CONTACT INFO: #[phone], email: [email or web address] ED HEAD OF MARKETING calls [facility] and spoke with Ashli, requested a hourly rate to present to family. Provided rate sheet for acid loader services ($44/hour) to offer to family. Ashli states she can speak with family tomorrow at bedside if requested. CONTACT INFO: ph#[phone], Fax#: [phone], email: [email or web address] ED HEAD OF MARKETING discussed above continually with pt family (sons and spouse) who are in agreement and appreciative of plans for admission before discharge back to [facility]. Pt family state they will inquire with pt's previous caregiver if she will be able to provide this service. HEAD OF MARKETING provided rate sheet for [facility] to family. Pt graciously accepted by Dr. Ambrosio for social admit while adjusting to new psych medications and caregivers in memory care facility established. Care Management Consideration: Cancel referrals with [facility] (ph# [phone]) and [facility] (ph# [phone]) when officially accepted back at [facility]. Plan: Acute care admission, anticipating discharge to [facility] when adjusted to new psych meds and 1:1 sitter established in facility. CM team will follow closely for coordination of discharge plans. Nesha Saez [facility] Discharge Planning/Care Management Discharge Planning Assessment Assigned Discharge JUDITH Jeffries [employer] DPOA/Assigned Lucian Martini, Spouse Designee Name Contact Information [phone] Advance Directives? No History Provided By Patient,Significant Other,Medical Record Has Patient been No admitted in last 30 days? Prior Living Assisted Living Arrangements Household Members none Type of Relies on Others transporation used prior to admit Facility Name [facility] Admitted From: Willing to Return to Yes Facility? Independent with ADL Yes 's Is patient alert and No oriented? Needs Assistance Grooming,Meal Prep,Managing Medications,Home Chores / With Shopping Caregiver for No Another Patient/Family LTAC Preference Barriers to No Discharge Discharge Plan Home Transportation Spouse vs. Facility Arrangement Referrals Initiated Other Review Status In Process Please Provide Date 06/27/25 Initial DC Assessment Was Performed Next Review Type Continued Stay Review
[2025-06-27 21:00] VITALS: BMI 23.8
[2025-06-27] MEDS: QUETIAPINE 25 MG TABLET 50 MG PO (21:25)
[2025-06-27] MEDS: HALOPERIDOL 5 MG/ML VIAL 2 MG IV (21:48)
--- NOTE | 2025-06-28 06:45 | PC.ADMIT ---
[id number] [facility] Admission Note: Patient arrived to floor via wheelchair with family members present. In no apparent respiratory or cardiovascular distress. Alert to self only. Severe expressive aphasia- family members note this is within normal limits for the patient. Patient refusing vital signs, refusing to comply with physical assessment. Family members left- unable to complete admission assessment due to patient's dementia and aphasia. Patient refusing to take medications, continued to become more agitated and impulsive. Agitation increased, 2 mg IM haldol given, no IV access. Patient agreeable to take night medications a few hours after haldol took effect, in pudding. Patient required 1:1 sitter for at least 4 hours for agitation and impulsive behavior.
[2025-06-28 08:30] VITALS: PULSE 65; RESP 16; TEMP 36; O2SAT 97
[2025-06-28] MEDS: MEMANTINE HCL 5 MG TABLET 10 MG PO ×2 (08:48→20:37)
[2025-06-28] MEDS: QUETIAPINE 25 MG TABLET 50 MG PO ×3 (08:48→20:37)
[2025-06-28] MEDS: CITALOPRAM 10 MG TABLET 20 MG PO (08:48)
--- NOTE | 2025-06-28 08:52 | PM.HP.1 ---
History of Present Illness History of Present Illness Date Patient Seen: 06/28/25 Time Patient Seen: 08:52 Chief complaint: Combative from [facility] Narrative: Mee is a very pleasant 75-year-old female who is well known to me who was brought to ER due to combative behavior and agitation with the aggression to other client at her memory care facility. She had been there for about a month and medications have been altered by the nurse practitioner, Kathrine aceves. She was started on citalopram and trazodone and Seroquel was increased. However she continued to have combative behavior and was then taken to the ER and given Haldol and route and was boarded in the ER for 48 hours while they attempted to find a geriatric psychiatric bed and they were unable to do this and therefore she was admitted to [facility] under social reasons. Dr. Irby consulted in the ER and made medication recommendations. Patient was given Seroquel last night and was awake most of the night. Was wandering but not agitated but would come out of her room with no clothes on. Was fairly easily redirected Twelve point review of system is otherwise unremarkable Labs in ER were unremarkable and not repeated Past medical history: 1. Dementia presumed Alzheimer's type diagnosed in 2022 but symptoms several years prior with progressive decline 2. GERD 3. Distant history of seizure disorder on Keppra 4. Hyperlipidemia on treated Allergies codeine causes nausea Past surgical history: 2017, patient had endometrial ablation Health related behavior: Patient does not smoke and never has Patient does not use alcohol Patient is fairly active Family history: Social history: Patient is has 2 sons who live nearby and are supportive. 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 [facility] Medical History GERD (gastroesophageal reflux disease) Surgical History History of endometrial ablation Social History household members: other Smoking Status: Unknown if ever smoked alcohol intake: current Meds Home Medications and Allergies Home Medications ?Medication ?Instructions ?Recorded ?Confirmed ?Type multivitamin 1 tab PO DAILY 10/07/18 06/26/25 History amoxicillin 875 mg-potassium 1 tab PO BID #14 tabs 12/24/24 06/26/25 Rx clavulanate 125 mg tablet levetiracetam 500 mg tablet 500 mg PO Q12H 12/24/24 06/26/25 History memantine 10 mg tablet 10 mg PO BID 12/24/24 06/26/25 History quetiapine 25 mg tablet 25 mg PO PRN 12/24/24 06/26/25 History rivastigmine 9.5 mg/24 hour topical 12/24/24 12/24/24 History transdermal patch prednisone 10 mg tablets in a dose See Rx Instructions PO .COMPLEX 04/10/25 06/26/25 Rx pack #45 ea quetiapine 25 mg tablet (Seroquel) 50 mg PO BEDTIME 06/26/25 06/26/25 History citalopram 10 mg tablet 10 mg PO DAILY 06/27/25 06/27/25 History Allergies Allergy/AdvReac Type Severity Reaction Status Date / Time codeine (CODEINE) Allergy Unknown Nausea Verified 06/25/25 17:03 Exam Vital Signs (past 8 hours): Oxygen Delivery Method Room Air Narrative Exam Narrative: Patient is afebrile vital signs are stable HEENT is unremarkable Neck: Supple Chest: Clear to auscultation without wheezes rhonchi or crackles Cor: Regular rate and rhythm without a murmur Abdomen: Positive bowel sounds, soft, nontender Extremities no edema Patient confused and somnolent. Not able to answer any questions. Not oriented to time place or person. Clearly word-finding difficulty. Patient is calm and not agitated Objective Labs 06/25/25 18:15 06/25/25 18:15 Assessment & Plan Assessment & Plan narrative: 75-year-old female with severe dementia presumably of the Alzheimer's type with severe agitation and behavioral problems admitted for stabilization Plan: Will continue with Seroquel 50 mg in the a.m. 50 mg at 3:00 p.m. and 50 mg at bedtime. We will continue with the citalopram at 20 mg daily and will re-initiate the Exelon patch as I think that this may have helped with some agitation though it is difficult to tell. There is no evidence of metabolic etiology for agitation or infection or other causes. We will continue to monitor with hopes to stabilize behavioral problem so that she can return to the memory care facility. Appreciate Psychiatry consultation Will discuss with family further goals of care. At this time we will try to minimize agitation while in the hospital with infrequent vitals and will hold off on further blood tests unless clinical course indicates further. Patient will not tolerate SCDs nor Lovenox. We will hold for now and I will discuss with her . 76 minutes was spent with patient in discussing with the ER physician, Psychiatry, nursing, reviewing chart and workup thus far and meeting with patient and formulating a plan and documentation Time-Based Coding :: [TOTAL MINUTES] spent with patient and on the chart (including review of chart, obtaining history, exam, reviewing outside data, placing orders, documenting exam and treatment plan, and counseling patient) on [DATE].
[2025-06-28 12:00] VITALS: PULSE 63; RESP 16; TEMP 35.7; O2SAT 95
--- NOTE | 2025-06-28 14:10 | CM.DPC ---
DCP Cont. Reviewed EMR and team rounds for pt's status updates. Called pt's spouse to discuss d/c planning resources for caregivers in order for her to return to [facility] by the end of the week. Pt's spouse responded to this call by telling this PEDIATRIC PHYSICIAN to put the brakes on it, it's been only 12-hours since we found out what we needed to do here. PEDIATRIC PHYSICIAN emphasized that we are here to be helful in coordinating with the caregiving agencies that they are interested in, in order to ensure that pt can safely discharge back to [facility] within the next 2-3 days. PEDIATRIC PHYSICIAN will call family back again tomorrow to see where they are at with planning needs.
--- NOTE | 2025-06-28 17:02 | P.PN_ITS ---
Subjective Subjective Date Patient Seen: 06/28/25 Time Patient Seen: 16:45 Interval history: Follow-up on this 75-year-old female recently admitted for agitation and combative behavior in the context of history of Alzheimer's and recent admission to memory care. Checked with nursing staff who noted that the patient was generally cooperative and not combative throughout the day. As ordered started on 50 mg of quetiapine 3 times a day which she seems to be tolerating well. Slept a lot but also noted to be up and about when she was awake. Nursing noted that she was generally easily redirectable and cooperative with taking her medication in food such as pudding and cookies. Exam Vital Signs (past 8 hours): - 06/28/25 12:00 Temperature 96.3 F L Pulse Rate 63 Respiratory Rate 16 Pulse Oximetry 95 Oxygen Delivery Method Room Air Narrative Exam Narrative: MENTAL STATUS EXAM * Appearance: The patient is slender, petite, female who appears stated age. * Grooming: neatly dressed in casual clothing and adequately groomed. * Eye Contact: Poor * Behavior: Seen cooperating with nurse as patient was being put back into bed. * Motor Movement: [No abnormal motor movements noted.] * Gait: Appeared to be intact * Speech: Unimpaired * Mood: Unable to state * Affect: Not appear irritated or agitated at all. * Thought Process: Not tested * Thought Content: Not tested * Attention: Not attentive or interactive with anyone other than nursing and family members. * Orientation: Oriented to name and self only not to person place or time. * Memory: Not tested, but very poor by history. * Insight: None * Judgment: Poor * Impulse Control: Poor Objective Labs 06/25/25 18:15 06/25/25 18:15 [facility] Medical History GERD (gastroesophageal reflux disease) Surgical History History of endometrial ablation Social History household members: other Smoking Status: Unknown if ever smoked alcohol intake: current Assessment & Plan Assessment & Plan narrative: ASSESSMENT/MEDICAL DECISION MAKING This is a 75-year-old female with a recent extensive history of dementia and recent history of difficulty with agitated and occasionally violent behavior. So far since admission last night, the patient has generally been manageable but has required a lot of one-to-one time with nursing. RECOMMENDATIONS: * Continue citalopram 20 mg p.o. q.day * Continue quetiapine 50 mg p.o. t.i.d. and particularly at bedtime * Continue lorazepam 1 mg p.o. b.i.d. as needed for severe agitation only * Continue appropriate behavioral measures with general redirection as you have continued to do. Time-Based Coding :: 20 minutes spent with patient and on the chart (including review of chart, obtaining history, exam, reviewing outside data, placing orders, documenting exam and treatment plan, and counseling patient) on 06/28/2025. PROFEE Mash Processing Operator Document charge(s): Yes Charge Codes Subsequent inpatient/observation care: [id number]
[2025-06-28 17:36] VITALS: PULSE 65; RESP 16; TEMP 35.9; O2SAT 97
[2025-06-28 19:51] VITALS: PULSE 61; RESP 16; TEMP 36.5; O2SAT 96
[2025-06-29 07:00] VITALS: BP 107/88; PULSE 66; RESP 18; TEMP 36.3; O2SAT 95
[2025-06-29] MEDS: MEMANTINE HCL 5 MG TABLET 10 MG PO ×2 (08:37→19:49)
[2025-06-29] MEDS: ACETAMINOPHEN 325 MG TABLET 650 MG PO (08:37)
[2025-06-29] MEDS: CITALOPRAM 10 MG TABLET 20 MG PO (08:38)
[2025-06-29] MEDS: QUETIAPINE 25 MG TABLET 50 MG PO ×2 (08:38→14:46)
--- NOTE | 2025-06-29 09:49 | P.PN_ITS ---
Subjective Subjective Date Patient Seen: 06/29/25 Time Patient Seen: 09:49 Interval history: Patient continues to be active but calm and easily redirected. She slept some last night. Currently on Seroquel 50 in the morning and 50 at 3:00 p.m. and 50 at bedtime. Had discussion with her can cream last night and goals of care are to keep her safe and comfortable. We discussed Exelon patch. Patient had been tried on the oral but had an intense reaction to this with vomiting so the patch was sent to pharmacy and has been will get this and we will put it on her today because we do not have it on formulary. No new concerns of chest pain or shortness a breath. Patient has p.o. intake but fairly low. Twelve point review of systems otherwise negative Exam Vital Signs (past 8 hours): - 06/29/25 07:00 Temperature 97.4 F L Pulse Rate 66 Respiratory Rate 18 Blood Pressure 107/88 Pulse Oximetry 95 Oxygen Flow Rate 0 Oxygen Delivery Method Room Air Oxygen Flow Rate 0 Narrative Exam Narrative: Afebrile vital signs are stable Chest: Clear to auscultation without wheezes rhonchi or crackles Cor: Regular rate and rhythm without a murmur Abdomen: Positive bowel sounds, soft Extremities: No edema Neuro unchanged. Patient with severe anomia and confusion and unable to answer questions but fairly easily redirected Objective Labs 06/25/25 18:15 06/25/25 18:15 [facility] Medical History GERD (gastroesophageal reflux disease) Surgical History History of endometrial ablation Social History household members: other Smoking Status: Unknown if ever smoked alcohol intake: current Assessment & Plan Assessment & Plan narrative: 75-year-old female with severe dementia presumably of the Alzheimer's type with severe agitation and behavioral problems admitted for stabilization Plan: Seroquel 50 mg in the a.m. 50 mg at 3:00 p.m. and 50 mg at bedtime. Will increase to 100 mg at bedtime. We will continue with the citalopram at 20 mg daily and will re-initiate the Exelon patch as I think that this may have helped with some agitation though it is difficult to tell. There is no evidence of metabolic etiology for agitation or infection or other causes. We will continue to monitor with hopes to stabilize behavioral problem so that she can return to the memory care facility. Appreciate Psychiatry consultation At this time we will try to minimize agitation while in the hospital with infrequent vitals and will hold off on further blood tests unless clinical course indicates further. Patient will not tolerate SCDs nor Lovenox. We will hold for now and I will discuss with her . 53 minutes was spent with patient in discussing with the ER physician, Psychiatry, nursing, reviewing chart and workup thus far and meeting with patient and formulating a plan and documentation Time-Based Coding :: [TOTAL MINUTES] spent with patient and on the chart (including review of chart, obtaining history, exam, reviewing outside data, placing orders, documenting exam and treatment plan, and counseling patient) on [DATE].
--- NOTE | 2025-06-29 10:52 | CM.DPC ---
CHRISTIAN Cont. Reviewed EMR and team rounds for pt's medical status and updates. Called and spoke to Kailey RN Director at [facility]. Updated her that pt is impoving with the addition of Seroquel, which was also just increased today. She stated that pt will still be required to return with a 1-1 sitter for the first week or two until they can confirm that her behaviors have improved during the day. She said that typically pt does sleep through the night there, however becomes agitated upon waking, and can be unpredictable with aggression towards other residents during the day before hospitalization. Called pt's son/family to update. They are meeting with [facility] this morning to possibly transfer her to their memory care unit, depending on how they like it. SALES FACILITATOR offered reassurance that pt is beginning to improve, and we discussed a plan to speak either later today or tomorrow with their decision for next steps.
--- NOTE | 2025-06-29 16:17 | P.PN_ITS ---
Subjective Subjective Date Patient Seen: 06/29/25 Time Patient Seen: 15:30 Interval history: Follow-up on this 75-year-old female recently admitted for agitation and combative behavior in the context of history of Alzheimer's and recent admission to memory care. The patient was seated at the nursing station with nurses present. Calm, generally directable, cooperative, not confrontational or combative. Nurses report that the patient seems to want to walk a lot, and at 1 point wandered into the elevator after seeing some family members get into it. She was able to be easily redirected back into the hallway and eventually back to her room. Cooperative with taking her medication with food such as putting her cookies in generally seems to be doing okay. Exam Vital Signs (past 8 hours): Oxygen Delivery Method Room Air Oxygen Flow Rate 0 Narrative Exam Narrative: MENTAL STATUS EXAM * Appearance: The patient is slender, petite, female who appears stated age. * Grooming: neatly dressed in casual clothing and adequately groomed. * Eye Contact: Better today, good eye contact. * Behavior: Seen sitting quietly on a chair at the nurse's station. * Motor Movement: Some fidgeting with her clothing, but not as much as when I saw her in the emergency department. * Gait: Appeared to be intact * Speech: Some mumbling but generally word salad * Mood: Unable to state * Affect: Not appear irritated or agitated at all. * Thought Process: Not tested * Thought Content: Not tested * Attention: Attentive to environment and staff members in the environment. * Orientation: Oriented to name and self only not to person place or time. * Memory: Unable to test * Insight: None * Judgment: Poor * Impulse Control: Poor Objective Labs 06/25/25 18:15 06/25/25 18:15 [facility] Medical History GERD (gastroesophageal reflux disease) Surgical History History of endometrial ablation Social History household members: other Smoking Status: Unknown if ever smoked alcohol intake: current Assessment & Plan Assessment & Plan narrative: ASSESSMENT/MEDICAL DECISION MAKING This is a 75-year-old female with a recent extensive history of dementia and recent history of difficulty with agitated and occasionally violent behavior. So far since admission last night, the patient has generally been manageable but has required a lot of one-to-one time with nursing. RECOMMENDATIONS: * Continue citalopram 20 mg p.o. q.day * Continue quetiapine 50 mg p.o. b.i.d. with additional 100 mg at bedtime as ordered by Dr. Ambrosio. * Continue lorazepam 1 mg p.o. b.i.d. as needed for severe agitation only * Continue appropriate behavioral measures with general redirection as you have continued to do. Time-Based Coding :: 20 total minutes spent with patient and on the chart (including review of chart, obtaining history, exam, reviewing outside data, placing orders, documenting exam and treatment plan, and counseling patient) on 29 June 2025. PROFEE Fur Tanner Document charge(s): Yes Charge Codes Subsequent inpatient/observation care: [id number]
[2025-06-29] MEDS: QUETIAPINE 25 MG TABLET 100 MG PO (19:53)
[2025-06-30] MEDS: MEMANTINE HCL 5 MG TABLET 10 MG PO ×2 (11:29→21:45)
[2025-06-30] MEDS: QUETIAPINE 25 MG TABLET 50 MG PO ×2 (11:29→14:55)
[2025-06-30] MEDS: CITALOPRAM 10 MG TABLET 20 MG PO (11:29)
[2025-06-30] MEDS: HYDROCODONE/ACET 5/325 TABLET 1 TAB PO (13:36)
--- NOTE | 2025-06-30 14:26 | CM.DPC ---
DCP Cont. Reviewed EMR and team rounds for pt's medical status updates. Pt is improving in terms of comfort and behaviors have all but disappeared since she started on Seroquel. Family toured [facility] and they are activley working on getting her placed there juan. The [facility] RN is going to do a bedside assessment on her today, this TUBE SPLICER sent clinicals for their review. Monitoring for ULISES.
[2025-06-30 17:00] VITALS: BP 139/80; PULSE 69; RESP 17; TEMP 36.6; O2SAT 96
--- NOTE | 2025-06-30 17:57 | PM.PN.1 ---
Subjective Subjective Interval history: Patient continues to be easily redirected and continues to be medically stable though did not sleep much last night but slept better than the night before. Patient has not received any Haldol since admission. We will go ahead and discontinue this. She does respond well to very small dose of lorazepam. [facility] nurse came to evaluate for possible admission to [place]. Care management is not present so I am unable to discuss with them at this time No change in ROS, 12 point ROS negative Exam Vital Signs (past 8 hours): - 06/30/25 17:00 Temperature 97.8 F Pulse Rate 69 Respiratory Rate 17 Blood Pressure 139/80 Pulse Oximetry 96 Oxygen Flow Rate 0 Oxygen Delivery Method Room Air Oxygen Flow Rate 0 Narrative Exam Narrative: Exam is unchanged. Patient is not alert or oriented to person. She was severe anomia but continues to be happy to see people and hugging them. Chest: Clear to auscultation Cor: Regular rate and rhythm without a murmur Abdomen: Positive bowel sounds, soft, nontender Extremities no edema Objective Labs 06/25/25 18:15 06/25/25 18:15 [facility] Medical History GERD (gastroesophageal reflux disease) Surgical History History of endometrial ablation Social History household members: other Smoking Status: Unknown if ever smoked alcohol intake: current Assessment & Plan Assessment & Plan narrative: 75-year-old female with severe dementia presumably of the Alzheimer's type with severe agitation and behavioral problems admitted for stabilization Plan: Seroquel 50 mg in the a.m. 50 mg at 3:00 p.m. and 100 mg at bedtime. Will increase to 150 mg at bedtime. We will continue with the citalopram at 20 mg daily and will re-initiate the Exelon patch as I think that this may have helped with some agitation though it is difficult to tell. Patient had EKG on admit which was normal. Will possibly do EKG due to high dose of Seroquel. Will see how she tolerates it tomorrow. There is no evidence of metabolic etiology for agitation or infection or other causes. We will continue to monitor with hopes to stabilize behavioral problem so that she can return to the memory care facility. Appreciate Psychiatry consultation At this time we will try to minimize agitation while in the hospital with infrequent vitals and will hold off on further blood tests unless clinical course indicates further. Patient will not tolerate SCDs nor Lovenox. We will hold for now and I will discuss with her . Code status is DNR 51 minutes was spent with patient in discussing with the ER physician, Psychiatry, nursing, reviewing chart and workup thus far and meeting with patient and formulating a plan and documentation Time-Based Coding :: [TOTAL MINUTES] spent with patient and on the chart (including review of chart, obtaining history, exam, reviewing outside data, placing orders, documenting exam and treatment plan, and counseling patient) on [DATE].
[2025-06-30] MEDS: QUETIAPINE 25 MG TABLET 150 MG PO (21:45)
--- NOTE | 2025-07-01 05:50 | PC.NURSE ---
Pt slept through night until ~0530. Woke pleasant and directable, voided on toilet, and ambulated in the halls with this RN.
[2025-07-01 07:00] VITALS: RESP 20; O2SAT 98
[2025-07-01] MEDS: CITALOPRAM 10 MG TABLET 20 MG PO (09:22)
[2025-07-01] MEDS: QUETIAPINE 25 MG TABLET 50 MG PO ×2 (09:23→15:48)
--- NOTE | 2025-07-01 10:13 | DIET.CONS ---
Dietary Consultation Note Admission Date: 06/27/2025 17:43 Assessment: 75 y F admitted for dementia/agitation. Dietitian screened for LOS. Pt ambulating in halls and hx of severe dementia. EMR reviewed. Spoke to nursing who reports when working with pt yesterday, pt was eating food independently, but needing cues/reminders to eat the food in front of her. Weight is stable around 64 kg over last 7 months. Recorded PO intakes variable - 25-75%. Ht: 165.1 cm Wt: 64.864 kg BMI: 23.8 UBW: 63.957 kg on 04/12/25, 63.9 kg on 12/24/24 Last BM: () MNA: Festus Score: 20 Diet: 06/27/25 Dinner General (Regular) Diet Diet Modifications: Safety Tray needed?: Yes Nutrition Percent Meal Consumed 50% 06/30/25 18:00 Percent Meal Consumed 50% 06/30/25 08:40 Percent Meal Consumed 25% 06/30/25 06:00 Percent Meal Consumed 25% 06/29/25 18:00 Labs: RBC 3.73 X10^6/uL (4.0-5.2) L 06/25/25 18:15 Hgb 11.8 g/dL (12.0-16.0) L 06/25/25 18:15 Hct 34.2 % (36-46) L 06/25/25 18:15 Creatinine 0.82 mg/dL (0.52-1.04) 06/25/25 18:15 Nutrition Diagnosis: Inadequate oral intakes r/t needing cues to eat/reduced awareness of appetite r/t <75% avg PO intakes during stay Interventions: -Unit host already coordinating finger foods/easy to eat options and fruits -Increasing caloric density of foods, i.e. adding meat slices to grilled cheese and adding i.e. milk at every meal, and extra side to support EER EER: 1600 kcals (25 kcals/kg per BMI) 65 g protein (1g/kg per age) Monitoring/Evaluations: PO intakes Electronically Signed by: Hanh Suazo 07/01/25 10:13 Clinical Dietitian [address] [id number]
[2025-07-01] MEDS: MEMANTINE HCL 5 MG TABLET 10 MG PO ×2 (11:16→20:31)
--- NOTE | 2025-07-01 11:31 | CM.DPNOTE ---
Addendum entered by JUDITH Sanchez 07/01/25 15:20: CHRISTIAN Update: 1236: Kailey, Medical Laboratory Technician at [facility], called this TRANSACTION MANAGER requesting update re: pt status. Requested updated clinicals before she can discuss with pt family status of pt acceptance back to their facility. [facility] Medical Laboratory Technician states she has not spoken to any one from pt family or any staff in a few days. 1245: DCP entered room, present in the room is pt's son (Shen) and spouse (Dejan) who confirm that they will be signing intake paperwork with [facility] today. DCP requested pt family reach out to [facility] to notify of their decision to move pt to another facility. Pt family request this TRANSACTION MANAGER to notify [facility] that they are available for a phone call, they state they will also attempt contact them. Family agree that they will discuss with [facility] directly of their decision to move pt to a different Memory Care unit. 1500: CHRISTIAN spoke with Medical Laboratory Technician at [facility] again, she reports she still has not spoken with pt family and is requesting more clinical information on pt obtaining IM medication. DCP answered questions to best of ability and encouraged [facility] Medical Laboratory Technician to connect with pt family as soon as possible. NIRANJAN Dominguez Original Note: DCP Continued: Reviewed EMR and team rounds for pt?s medical status. Per RN, pt is on a 1:1 for wandering behaviors but has not needed any PRN haldol in the last day. CHRISTIAN spoke with Nakia Prasad, Admissions at [facility]. Admissions states pt family will be signing intake paperwork today at 1400 and is still planning for a Friday, 07/04 admission. DCP faxed requested clinicals to [facility] admissions who verbalized receipt. Nakia Prasad - # [phone], fax# [phone]. Plan: Anticipating discharge to [facility] Unit on Friday, 07/04 with family to transport (time to be determined). CM Team will continue to follow for coordination of discharge plans. NIRANJAN Dominguez
--- NOTE | 2025-07-01 11:43 | PC.NURSE ---
Pt became extremely agaitated, Took seroquel in pudding. Wound not take meds prn ativan a tad later when offered. Pt walking hallways quickly, refusing to sit in room . Family called, they will be in soon Pt remains 1:1, ambulating hallway Condition remains essentially unchanged.
--- NOTE | 2025-07-01 13:23 | PM.PN.1 ---
Subjective Subjective Date Patient Seen: 07/01/25 Time Patient Seen: 13:23 Interval history: Patient seen in follow-up of severe dementia and agitation. Seen for Dr. Ambrosio who is off today. Overall has been doing well. Did have an episode today where she was wondering the hospital and decided she wanted to go home. Got slightly violent but otherwise quieted completely down when her son got here. Refused her Ativan. Otherwise is doing well without complaint or problem Exam Vital Signs (past 8 hours): - 07/01/25 07:00 Respiratory Rate 20 Pulse Oximetry 98 Oxygen Delivery Method Room Air Oxygen Flow Rate 0 Narrative Exam Narrative: Alert female quiet attempting to talk but rambling without making any sounds Objective Labs 06/25/25 18:15 06/25/25 18:15 [facility] Medical History GERD (gastroesophageal reflux disease) Surgical History History of endometrial ablation Social History household members: other Smoking Status: Unknown if ever smoked alcohol intake: current Assessment & Plan Assessment & Plan narrative: Severe dementia end-stage with severe agitation/behavioral problems Patient on her all has been doing well with some mild outbreaks. She is currently getting 50 b.i.d. of Seroquel with 100 at night and that seems to be adequate. I do not think we have to do anything more at this time. Patient otherwise is stable. No evidence infection or other issues for other causes of emotional changes. Appreciate Dr. Gray input. Will continue current medication. No changes at this time. Continue to minimize agitation minimal vital signs. Review of notes from social service shows anticipate discharge on Friday to placement. Time-Based Coding :: [TOTAL MINUTES] spent with patient and on the chart (including review of chart, obtaining history, exam, reviewing outside data, placing orders, documenting exam and treatment plan, and counseling patient) on [DATE].
[2025-07-01] MEDS: QUETIAPINE 25 MG TABLET 150 MG PO (20:31)
[2025-07-02 06:46] VITALS: BP 147/75; PULSE 75; RESP 17; TEMP 36.3; O2SAT 95
[2025-07-02 08:00] VITALS: BP 138/77; PULSE 66; RESP 16; TEMP 36.1; O2SAT 96
[2025-07-02] MEDS: RIVASTIGMINE 1 EACH TOP (09:12)
[2025-07-02] MEDS: MEMANTINE HCL 5 MG TABLET 10 MG PO ×2 (09:13→20:22)
[2025-07-02] MEDS: CITALOPRAM 10 MG TABLET 20 MG PO (09:13)
[2025-07-02] MEDS: QUETIAPINE 25 MG TABLET 50 MG PO ×2 (09:14→15:03)
[2025-07-02] MEDS: HALOPERIDOL 5 MG/ML VIAL 2 MG IM (14:52)
--- NOTE | 2025-07-02 15:52 | PC.NURSE ---
Pt ambulating in hallway w/ staff. Became extremely agitated this afternoon, Refused meds, spitting @ staff. IM Haldol given as per orders. Pt more calm at this time Again ambulating in tse w/ staff Remains 1:1 Contniue as per plan of care.
[2025-07-02] MEDS: QUETIAPINE 25 MG TABLET 150 MG PO (20:22)
[2025-07-03 06:50] VITALS: BP 142/82; PULSE 88; RESP 16; O2SAT 96
--- NOTE | 2025-07-03 06:54 | P.CALLCOV_ITS ---
Call Coverage Note Note Date of Patient Contact: 07/03/25 Time of Patient Contact: 06:55 Narrative of Care Provided: Stat medical code was called, responded nursing request 75-year-old woman admitted to the hospital for agitated dementia awaiting placement. Patient was up and wandering slightly, assistant floor covering printer was immediately available thought she might need to void so helped her to the bathroom with a walker. While standing in front of the toilet began to rock back and forth and then fell forward. She did land forward hitting her nose and has some minor bleeding from the right nare. She was helped back into bed and immediately evaluated. Cervical spine immobilization with soft collar created with a rolled blanket for comfort but stability is placed by me, Exam: Patient is awake, breathing spontaneously, vital signs are stable please see nursing notes She is minimally responsive however her nurse states she is still close to her baseline state of dementia No obvious pain behaviors with exam at bedside. HEENT: Looks like she may have some bruising with her upper lip that there is no dental fractures or obvious dental malocclusion. No tenderness over the frontal sinuses or maxillary sinuses, bleeding from the right side of her nose has stopped. Cervical spine is palpated, no obvious injuries. Question of pain behaviors triage with palpation of the upper cervical spine No obvious injuries to upper extremities or shoulders. No pain behaviors with pelvic manipulation. No obvious injuries aside from minor bruise that will likely develop over the right patella. She is moving all extremities without difficulty As patient did fall on hospital property did hit her head, we will obtain a CT scan of the head as well as cervical spine. Will personally communicate with her rounding physician this morning to make sure that they follow up and decide if any additional blood work is required Assessment: Fall seemingly secondary to instability, falling forward, bloody nose concern for intracranial hemorrhage cervical spine injury. Imaging ordered. Follow up per inpatient physician.
--- NOTE | 2025-07-03 07:05 | DI.CT.S_ITS ---
PROCEDURE: CT HEAD/BRAIN WO CON INDICATIONS: fall TECHNIQUE: Noncontrast 4.5 mm thick angled axial sections acquired from the foramen magnum to the vertex, with coronal and sagittal reformats. For radiation dose reduction, the following was used: automated exposure control, adjustment of mA and/or kV according to patient size. COMPARISON: [facility], CT, CT HEAD/BRAIN WO CON, 04/10/2025, 14:28. FINDINGS: Image quality: Diagnostic. CSF spaces: Basal cisterns are patent. No extra-axial fluid collections. The ventricles are symmetric in size and shape. Brain: No intracranial bleeds or mass effect. There is cerebral volume loss, with resultant ventricular and sulcal prominence. There are periventricular and deep white matter chronic small vessel ischemic changes. There is intracranial internal carotid artery atherosclerosis. Skull and face: Calvarium and visualized facial bones appear intact, without suspicious lesions. Sinuses: Visualized sinuses and mastoids are clear. IMPRESSION: No acute intracranial pathology. Dictated by: Óscar Sexton M.D. on 07/03/2025 at 8:21 Approved by: Óscar Sexton M.D. on 07/03/2025 at 8:21
--- NOTE | 2025-07-03 07:05 | DI.CT.S_ITS ---
PROCEDURE: CT CERVICAL SPINE WO CON INDICATIONS: fall TECHNIQUE: Noncontrast 3 mm thick sections acquired from the skull base to the T4 level. Sagittal and coronal reformats were then constructed. For radiation dose reduction, the following was used: automated exposure control, adjustment of mA and/or kV according to patient size. COMPARISON: None. FINDINGS: Image quality: Excellent. Bones: No fractures or dislocations. Straightening of normal cervical lordosis. Loss of disc height, degenerative endplate changes and bilateral facet hypertrophic changes are noted throughout cervical spine. Visualized superior ribs are intact. Soft tissues: Prevertebral soft tissues are normal in thickness. No paravertebral hematomas. No apical pneumothoraces. IMPRESSION: 1. No displaced fracture or traumatic subluxation. 2. [id number] degenerative disc disease throughout cervical spine. Dictated by: Óscar Sexton M.D. on 07/03/2025 at 8:22 Approved by: Óscar Sexton M.D. on 07/03/2025 at 8:22
[2025-07-03] MEDS: HALOPERIDOL 5 MG/ML VIAL 2 MG IM (07:35)
--- NOTE | 2025-07-03 07:41 | W.PC.ACHO ---
At approx 6:45 this RN and Logan WILD entered room 207 after hearing a thud. This RN entered the room to see the 1:1 sitter standing over the patient in the bathroom. Patient was noted to be face down on the bathroom floor having a rigid body spasm. Tech stated she just fell. This RN and Logan WILD put patient on her side respecting neck precautions. Patient was noted to have blood coming out of her mouth-area and nose. Patient noted to be breathing and alert. Using Linda material patient was transferred to bed for assessment of vitals and nuero status. Patients eyes were PERRLA. Patients baseline mentation was noted; confused, agitated, restless and unable to follow directions. Vitals and blood sugar noted to be within normal range. Additional staff at bedside; MD Restrepo from ED at bedside. MD Restrepo left bedside after she completed bedside neuro check; no orders; instructed to consult Dr Ambrosio. After Slime WILD was able to assist, MD Sommers was reached via tele for bedside assessment and orders; order for IM ativan received. During this time Dr. Arce arrived to bedside. With no therapeutic effect IM ativan was given; patient remained agitated; pulling at neck brace and trying to climb out of bed; IM Haldol given for therapeutic effect. Patient transferred to CT by Logan WILD. Patient returned to room 207; now calm. Slime WILD contacted family to notify. Report given to day shift nurse Sheri WILD.
--- NOTE | 2025-07-03 07:50 | PC.NURSE ---
Patient's son Marquis Martini was notify over the phone in regards to his mom having a fall in the bathroom while using the toilet. Pt's son aware that his mom is on her way to [place] right now. This nurse also left a message for patient's to call this hospital.
--- NOTE | 2025-07-03 08:05 | W.PC.ACHO ---
Around 06:40, 07/03/2025, this tech took the pt to the bathroom for toileting needs, pt was sitting on the toilet, and started to sit in a tripod position, and suddenly experienced a freeze moment, then pt began shaking and this tech called for help and rapid response team as soon as the pt fell forward in a prone position. Rn's and this tech help turned the pt into her lateral position to reduce further injuries. Rapid response quickly helped and transferred pt into the bed and provided immediate care. DONOVAN Klein
[2025-07-03 08:08] VITALS: BP 142/80; PULSE 80; RESP 20; TEMP 36.7; O2SAT 96
--- NOTE | 2025-07-03 08:39 | W.PC.ACHO ---
Around 06:40 07/03/2025, this tech took the pt to the bathroom for toileting needs, pt was sitting on the toilet, and started to sit in a tripod position, suddenly experienced a freeze moment, then pt began shaking, this tech called for help and rapid response team, as the pt fell forward in a prone position. RN's and this tech help turned the pt into lateral position to reduce further injuries. Rapid response team quickly transferred pt in to the bed and provided immediate care. DONOVAN Klein
--- NOTE | 2025-07-03 08:46 | W.PC.ACHO ---
at 06:40, this tech took the pt to the bathroom for toileting needs, pt was on the toilet, started sitting in tripon position, and suddenlyexperienced a freeze moment, then pt began shaking and this tech called for help and rapid response team as soon as the pt fell forward in a prone position. RN's and tech helped turned the pt in lateral position to prevent further injuries. Rapid response team quickly transferred pt into the bed and provided immediate care. DONOVAN Klein
--- NOTE | 2025-07-03 10:14 | EKG_ITS ---
[facility] [address] [place] [address] Test Date: 2025-07-03 Pat Name: Mary Martini Department: [facility] Room: 207 Gender: Female Corporate Strategist: RENA : 1950 Requested By: Order Number: [id number] Reading MD: Seymour Arce Measurements Intervals [place] Rate: 62 P: 76 OR: 146 QRS: 33 QRSD: 100 T: 86 QT: 424 QTc: 430 Interpretive Statements Sinus rhythm with premature atrial complexes Low voltage QRS Incomplete right bundle branch block Electronically Signed On 07-03-2025 18:50:24 PDT by Seymour Arce
--- NOTE | 2025-07-03 10:21 | PM.PN.1 ---
Subjective Subjective Date Patient Seen: 07/03/25 Time Patient Seen: 10:22 Interval history: Patient seen of dementia with agitation. Patient overall had 1 episode falling off the toilet this morning hitting her head. Emergency room physician saw her and CT was ordered which was negative. All bleeding as sought. She otherwise has no other new changes. She had 1 episode of agitation last night. And we discussed that she was given Haldol. There was no other changes. She is somnolent this morning. But moving all extremities Exam Vital Signs (past 8 hours): - 07/03/25 06:50 07/03/25 08:08 Temperature 98.1 F Pulse Rate 88 80 Respiratory Rate 16 20 Blood Pressure 142/82 H 142/80 H Pulse Oximetry 96 96 Oxygen Flow Rate 0 Oxygen Delivery Method Room Air Oxygen Flow Rate 0 Narrative Exam Narrative: Somnolent female lying in bed in no acute distress interacting with staff Has some bruising on her lips. Slight on cheeks bilaterally but otherwise no other changes. Neurologic exam was nonfocal Objective Labs 06/25/25 18:15 06/25/25 18:15 Labs: Laboratory Results - last 24 hr 07/03/25 06:49 POC Whole Bld Glucose 119 H PFSH Medical History GERD (gastroesophageal reflux disease) Surgical History History of endometrial ablation Social History household members: other Smoking Status: Unknown if ever smoked alcohol intake: current Assessment & Plan Assessment & Plan narrative: History of seizure disorder. This could potentially have been a seizure. Unclear at this time. Discussed with . Will load with 2 g of Keppra then start back on 500 b.i.d.. Should be stable. Fall. Contusions to face. Possible seizure unknown at this time. Certainly patient with difficulty communicating. We discussed with . Overall were stable at this point CT is negative. Has not sustained any other injuries. Will follow. Hopefully watch somewhat closer. Patient has one-to-one as it is. Will see how things go End-stage dementia with agitation. Long discussion with . Patient is on Seroquel intermittent Haldol Ativan. We discussed the risk of all of these. It is a problem with Seroquel as it may increase QT prolongation. She has on a pretty good dose at this time. Also we discussed there was really nothing definitive of the indicated for treatment with dementia and agitation. There is a black box warning in regards to with use of Seroquel. Has been understands this. Looking for anything that makes her agitation less and makes her stay at her next institution better. Would like to continue that. EKG shows QT 430 which is below QT prolongation. But I am comfortable increasing any higher than this. Certainly we discussed is probably not realistic to expect this to completely eliminate her outbursts of anger. If she continues we may need to increase this and take the risk cardiac issues. Will discuss with her PCP. Also discussed Ativan. Increased risk of falls. Has been would like to go to scheduled dose. Will place on q.6 hour and see how she does. Has been understands the fact and will just have to follow. I think we are still on trach to discharge tomorrow. Code status DNR DVT prophylaxis not indicated with risk of falls with dementia and lack of insight be increased risk. Disposition home discharge tomorrow. 65 minutes spent with nursing staff pharmacy patient dictation orders Time-Based Coding :: [TOTAL MINUTES] spent with patient and on the chart (including review of chart, obtaining history, exam, reviewing outside data, placing orders, documenting exam and treatment plan, and counseling patient) on [DATE].
[2025-07-03] MEDS: RIVASTIGMINE 1 EACH TOP (11:02)
[2025-07-03] MEDS: QUETIAPINE 25 MG TABLET 50 MG PO ×2 (11:05→17:35)
[2025-07-03] MEDS: MEMANTINE HCL 5 MG TABLET 10 MG PO ×2 (11:05→21:12)
[2025-07-03] MEDS: CITALOPRAM 10 MG TABLET 20 MG PO (11:05)
--- NOTE | 2025-07-03 11:18 | CM.DPC ---
Addendum entered by JUDITH Molina 07/03/25 14:26: ADD: KIM spoke to pt's son/POA Shen again and he confirms he is feeling better about the scheduled Ativan for pt to help reduce risk of behaviors. He states he is feeling better about pt discharge to [place] tomorrow and after discussing options for transport Shen feels pt would transport best with him and he has door locks in place. Updated that [facility] says anytime after 1000 tomorrow Mon and son will wait to hear when MD can round and confirm discharge in the AM and he lives only a few minutes away and will provide transport at d/c. BF Original Note: DCP Cont: Per RN, pt had fall in the bathroom this morning around change of shift and then noted that pt has not had her home Keppra ordered at admit and MD notified and corrected. Pt taken to imaging and results normal. Pt's spouse and son has concerns with pt's behaviors and medication recommendations and wanting scheduled Ativan rather than PRN Ativan to see if this reduces pt's behaviors. Son driving up to be bedside around lunch time. SW spoke to son via phone on drive up and answered questions to best of ability and he confirms preference remains move into [place] at d/c but want to make sure pt is as stable with behaviors as possible for best start of care and adjustment at d/c. SW spoke to Dinorah at [facility] and she confirms they have accepted pt for move in and family has already brought furniture to the apt for the patient this weekend and only need signed med list and discharge summary at d/c, no other move in pwk needed. [facility] can accept any time after 1000. Pt has been ambulating the halls with staff multiple times a day and very mobile and will try to determine best mode of transport (family?) for safety and security due to her dementia. JUDITH Molina
[2025-07-03] MEDS: ACETAMINOPHEN 325 MG TABLET 650 MG PO (17:33)
--- NOTE | 2025-07-03 19:16 | PC.NURSE ---
Day shift: At start of shift, pt in bed with nursing staff at bedside due to fall in bathroom prior to start of day shift. Pupils reactive, pt mentation baseline, exit seeking, unable to follow commands. Vitals WDL. Pt down to CT with night nursing. Pt back to room 207. Spouse at bedside, expressing frustration in lack of pt's home anti-seizure medication not being start at admission. Pharmacy consulted to clarify home medication. Answering service for on-call provider notified, Dr. Rehman returned call at approximately 0930. Pt spouse updated. Provider Dr. Rehman at bedside at 10:25, at bedside with pt spouse and pt son. Family expresses satisfaction with questions answered by provider. Pt tolerating lunch and agreeable to take PO medications crushed in pudding. Pt eyes closed, resting comfortably with PCT 1:1 at bedside. Pt up at 16:45. Assisted to bathroom with PCT and this RN. Pt up to chair, PCT 1:1 with pt remainder of shift. Pt agreeable to take PO medications crushed. Pt ambulated in halls with PCT with gait belt. Pt back to bed, resting with eyes closed. PCT 1:1 with pt. Care ongoing.
[2025-07-03 21:00] VITALS: BP 118/69; PULSE 52; RESP 18; TEMP 36.3; O2SAT 96
[2025-07-03] MEDS: QUETIAPINE 25 MG TABLET 150 MG PO (21:12)
--- NOTE | 2025-07-04 08:49 | PM.DS.1 ---
History of Present Illness History of Present Illness Chief complaint: Combative from [facility] Narrative: Mee is a very pleasant 75-year-old female who is well known to me who was brought to ER due to combative behavior and agitation with the aggression to other client at her memory care facility. She had been there for about a month and medications have been altered by the nurse practitioner, Kathrine aceves. She was started on citalopram and trazodone and Seroquel was increased. However she continued to have combative behavior and was then taken to the ER and given Haldol and route and was boarded in the ER for 48 hours while they attempted to find a geriatric psychiatric bed and they were unable to do this and therefore she was admitted to [facility] under social reasons. Dr. Irby consulted in the ER and made medication recommendations. Patient was given Seroquel last night and was awake most of the night. Was wandering but not agitated but would come out of her room with no clothes on. Was fairly easily redirected Twelve point review of system is otherwise unremarkable Labs in ER were unremarkable and not repeated Past medical history: 1. Dementia presumed Alzheimer's type diagnosed in 2022 but symptoms several years prior with progressive decline 2. GERD 3. Distant history of seizure disorder on Keppra 4. Hyperlipidemia on treated Allergies codeine causes nausea Past surgical history: 2018, patient had endometrial ablation Health related behavior: Patient does not smoke and never has Patient does not use alcohol Patient is fairly active Family history: Social history: Patient is has 2 sons who live nearby and are supportive. 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 Discharge Providers Provider Date of admission: 06/27/25 17:43 Discharge Date: 07/04/25 Primary care physician: Phuong Ambrosio MD Consults: 06/25/25 17:01 Consult to [facility] - Editor At Large Stat Comment: Editor At Large Consult needed for:: Other reason (Comment) 06/27/25 19:39 Consult to Discharge Planning Routine Comment: Discharge provider: Phuong Ambrosio MD Summary Hospital Course Discharge Diagnosis: Dementia with severe agitation, presumably Alzheimer's type Anger outbursts Hyperlipidemia Seizure disorder Hospital Course: Patient was at a memory care facility [facility] and was having difficulty with agitation and anger outburst and they were unable to keep her at that facility and she was unable to go home and she was transported to the ER where they attempted to find a geriatric psychiatric bed but were unable to. Consultation underwent with Dr. Irby of Psychiatry who felt that it was appropriate for her to be admitted here. She was admitted to my service. Patient was monitored and had 1 on 1 supervision. She had been started on citalopram by a prescribing nurse practitioner at [facility] and this was increased to 20 mg. Patient was placed on Seroquel and this was increased she had been on it as an outpatient but difficulty taking the medications. She was able to tolerate this and had been doing well until approximately night when she became having anger outbursts. She sustained a fall on Friday morning while sitting on the toilet and workup including CT scan was negative for acute abnormalities. Patient previously had a history of seizure disorder and previously had been on Keppra. It is unclear when this was discontinued. Patient had difficulty taking medications throughout her history but worsened with her agitation. Patient was re-loaded with Keppra on 07/03/2025 and will be discharged with this. Patient continues to be active but easily redirected. Discussion ensued with family and discuss risks of Seroquel. Discussed risks of lorazepam etc.. And they did want her to be on scheduled lorazepam which was started on 07/03/2025 1 mg 3 times daily. Patient will be discharged to [facility] today. Her son will take her there. Her discharge medications will be Keppra 500 mg twice daily. Seroquel 50 mg in the morning 50 at 3:00 p.m. and 150 at bedtime. She will continue with the lorazepam 1 mg 3 times daily. She will be continued on memantine 10 mg twice daily. I had sent Exelon patch to [facility] as we do not have it on formulary and I think this would be beneficial to re-initiate this is well. This was communicated with her . At the recommendation of Dr. Irby, psychiatry we will discontinue citalopram and will switch to sertraline at 50 mg daily in hopes that we can push this dose. Status at Discharge Cognitive/behavioral status at discharge: at baseline, confused Exam Vital Signs (past 8 hours): Oxygen Delivery Method Room Air Oxygen Flow Rate 0 Narrative Exam Narrative: Patient is not oriented to place or time. Patient has severe anomia HEENT unremarkable Neck is supple without adenopathy Chest: Clear to auscultation without wheezes rhonchi or crackles Cor: Regular rate and rhythm without a murmur Extremities unremarkable Bruising on face Objective Labs 06/25/25 18:15 06/25/25 18:15 [facility] Medical History GERD (gastroesophageal reflux disease) Surgical History History of endometrial ablation Social History household members: other Smoking Status: Unknown if ever smoked alcohol intake: current Discharge Assessment & Plan Assessment and Plan Assessment: Dementia presumably Alzheimer's type with agitation improved Seizure disorder Hyperlipidemia Plan of Treatment: Patient will be discharged to [facility] today. Her son will take her there. Her discharge medications will be Keppra 500 mg twice daily. Seroquel 50 mg in the morning 50 at 3:00 p.m. and 150 at bedtime. She will continue with the lorazepam 1 mg 3 times daily. She will be continued on memantine 10 mg twice daily. I had sent Exelon patch to [facility] as we do not have it on formulary and I think this would be beneficial to re-initiate this is well. This was communicated with her . At the recommendation of Dr. Irby, psychiatry we will discontinue citalopram and will switch to sertraline at 50 mg daily in hopes that we can push this dose. 35 minutes was spent in discharge. Reviewing chart discussing with care management and physician in meeting with the patient and formulating a plan and documentation Discharge Plan Discharge Plan Patient Disposition: Assisted Living Other facility: [facility] Consult as needed: Dental, Hearing, Mental health, Podiatry and Vision Discharge orders & Medications Discharge Orders: Discharge (Order); Ordered 07/04/25 Ordered By: Phuong Ambrosio Prescriptions: New quetiapine 25 mg Tablet 150 mg PO BEDTIME Qty: 90 0RF quetiapine 25 mg Tablet 50 mg PO BID@0900,1500 Qty: 60 3RF lorazepam 0.5 mg Tablet 1 mg PO Q6HR Qty: 60 1RF levetiracetam 250 mg Tablet 500 mg PO BID Qty: 180 3RF sertraline [Zoloft] 50 mg Tablet 50 mg PO BEDTIME Qty: 90 0RF memantine 5 mg Tablet 10 mg PO BID Qty: 180 0RF Continued quetiapine 25 mg tablet 25 mg PO PRN multivitamin Tablet 1 tab PO DAILY quetiapine [Seroquel] 25 mg tablet 50 mg PO BEDTIME levetiracetam 500 mg tablet 500 mg PO Q12H Qty: 60 3RF Patient Comments: Take 1/2 tablets (250 mg) by mouth 2 (two) times a day. memantine 10 mg tablet 10 mg PO BID Qty: 180 3RF Discontinued citalopram 10 mg tablet 10 mg PO DAILY prednisone 10 mg tablets,dose pack See Rx Instructions .ROUTE .COMPLEX Qty: 45 0RF Rx Instructions: 60 mg p.o. daily x5 days, then 50 mg p.o. x1 day, then 40 mg p.o. x1 day, then 30 mg p.o. x1 day, then 20 mg p.o. x1 day then 10 mg p.o. x1 day Follow up/Referrals: Phuong Ambrosio MD [Primary Care Provider, [facility]] Discharge Health Status Multidrug resistant organism: No MDRO Precautions: [place] Diet/Activity/Treatments Diet: Diet as Tolerated Liquid consistency: Normal/Thin Food texture: Regular Visit Report/Discharge Packet Stand Alone Forms: Patient Portal/API, Stroke Signs & Symptoms Discharge Data Primary Care Provider: Phuong Ambrosio
[2025-07-04] MEDS: RIVASTIGMINE 1 EACH TOP (09:03)
[2025-07-04] MEDS: MEMANTINE HCL 5 MG TABLET 10 MG PO (09:04)
[2025-07-04] MEDS: QUETIAPINE 25 MG TABLET 50 MG PO (09:04)
--- NOTE | 2025-07-04 09:12 | CM.DPC ---
DCP Discharge to Memory Care Per MD, pt is medically stable to d/c to new Memory Care facility today and seemed to be managed well on the scheduled Ativan and resumption of her Keppra. Discharge orders placed and med list signed and scripts printed. KIM contacted [facility] and updated and faxed d/c summary, signed med list, and scripts and she is agreeable with pt being transported around 1000 today. KIM called son/MIGDALIA Gotti and updated on above and he confirms that he is agreeable with discharge and providing transport around 1000 today and just wanted to make sure pt's home meds here at the hospital go with her. Updated Pharmacist and RN and they will get pt's home meds in the Pharmacy and gave number for RN to call report. Plan: Patient to discharge via [facility] today to [facility] around 1000 for ongoing supportive care. JUDITH Molina
== END 2025-07-04 10:30 | DRG 57 ==
LOC: ED 06-27 07:44 → AC 06-27 17:45
PROVIDERS: Emergency Medicine; Admitting Provider Family Medicine; Emergency Provider Family Medicine; PCP Family Medicine; Referring Provider Family Medicine; Visit Provider Family Medicine
DX: G30.9 Alzheimer's disease, unspecified (principal); F02.C11 Dementia in other diseases classified elsewhere, severe, with agitation; K21.9 Gastro-esophageal reflux disease without esophagitis; G40.909 Epilepsy, unspecified, not intractable, without status epilepticus; E78.5 Hyperlipidemia, unspecified; R26.89 Other abnormalities of gait and mobility; S00.83XA Contusion of other part of head, initial encounter; Y92.231 Patient bathroom in hospital as the place of occurrence of the external cause; W18.11XA Fall from or off toilet without subsequent striking against object, initial encounter; Z66 Do not resuscitate
CPT/HCPCS: 70450; 72125; 80053; 80305; 81001; 81003; 82962; 85025; 87086; 87635; 90792; 93005; 99284; J1630; J2060